=== PATIENT | male | born 1955 | race Caucasian/White ===

== ENCOUNTER 2021-11-29 16:38 | Emergency (ER) | payer OTHER, SELFPAY ==
[2021-11-29 16:53] VITALS: BP 110/50; PULSE 85; RESP 20; TEMP 36.8; O2SAT 90; BMI 30.2
--- NOTE | 2021-11-29 16:56 | ECG_ITS ---
Test Reason : ETOH Blood Pressure : / mmHG Vent. Rate : 083 BPM Atrial Rate : 083 BPM P-R Int : 146 ms QRS Dur : 102 ms QT Int : 404 ms P-R-T Axes : 076 072 067 degrees QTc Int : 474 ms Normal sinus rhythm Normal ECG No previous ECGs available Referred By: Virgil Bird Electronically Signed By:RUT LUNDY MD
--- NOTE | 2021-11-29 17:03 | ED.ALCOHOL ---
HPI - Alcohol General Chief Complaint: ETOH/Substance Use Stated Complaint: etoh Time Seen by Provider: 11/29/21 16:56 Source: patient Mode of arrival: EMS Limitations: no limitations History of Present Illness HPI narrative: Patient alcoholics been drinking all the time about pint of vodka a day for last 3 days patient did not eat and just drinking was at the bar who called EMS looking at his condition. Patient feel depressed also denies any suicidal ideation hallucinations never been to detox lives alone at home no abdominal pain no nausea no vomiting just does not feel hungry Related Data Allergies Allergy/AdvReac Type Severity Reaction Status Date / Time No Known Allergies Allergy Unverified 06/27/20 14:44 Review of Systems Review of Systems: Yes all other systems are reviewed and are negative [facility] Social History Social History Alcohol intake: current Alcohol intake frequency: a few times a week Alcohol type: hard liquor Physical Exam ED Vital Signs: Vital Signs - 24 hr 11/29/21 16:53 Temperature 98.3 F Pulse Rate 85 Respiratory Rate 20 Blood Pressure 110/50 L Pulse Oximetry 90 L BMI result Body Mass Index 30.2 Appearance: Alert. Oriented X3. No acute distress. In unkept condition Eyes: PERRLA, No Nystagmus ENT: Pharynx normal. Oral Mucosa moist Neck: Normal inspection. Neck supple. CVS: Normal heart rate and rhythm. Pulses normal. Respiratory: No respiratory distress. Equal air entry bilateral, no wheezing/rales/rhonchi Abdomen: Soft and nontender. Bowel sounds are present, no mass palpable, no CVA tenderness Skin: Skin warm and dry. Normal skin color. Normal skin turgor. Extremities: No lower extremity edema. No calf tenderness Neuro: Oriented X 3. No motor deficit. MDM - Alcohol MDM Narrative Medical decision making narrative: Patient intoxicated but alert oriented x4 walking in steady gait refused to go to detox refused any medications family is at bedside agreed to discharge the patient home Lab Data Attestation: I reviewed the patient's lab results. Result diagrams: 11/29/21 17:16 11/29/21 17:16 Labs: Lab Results 11/29/21 11/29/21 11/29/21 Range/Units 17:16 17:16 17:16 WBC 4.3 L (4.8-10.8) X10*3/uL RBC 3.56 L (4.60-5.80) X10*6/uL Hgb 13.2 L (14.0-18.0) g/dl Hct 39.1 L (42.0-52.0) % MCV 109.8 H (80.0-98.0) fL MCH 37.1 H (27.0-33.0) pg MCHC 33.8 (31.0-36.0) g/dl RDW 16.6 H (11.0-16.0) % Plt Count 176 (160-400) X10*3/uL MPV 8.5 L (9.4-12.4) fL Immature Gran % (Auto) 0.7 H (0.0-0.4) % Neut % (Auto) 51.1 (45-73) % Lymph % (Auto) 29.3 (20-40) % [place] % (Auto) 12.9 H (2-11) % Eos % (Auto) 3.9 (0-4) % Baso % (Auto) 2.1 H (0-2) % Lymph # (Auto) 1.3 (1.2-4.9) X10*3/uL [place] # (Auto) 0.6 (0.1-1.2) X10*3/uL Eos # (Auto) 0.2 (0.0-0.4) X10*3/uL Baso # (Auto) 0.1 (0.0-0.2) X10*3/uL Abs Immat Gran (auto) 0.03 (0.00-0.03) X10*3/uL Absolute Neuts (auto) 2.2 (2.0-8.3) x10*3/uL Absolute Nucleated RBC 0.000 (0.0-0.012) X10*3/uL Nucleated RBC % (auto) 0.0 (0.0-0.2) /100WBC Sodium 143 (135-145) mmol/L Potassium 4.1 (3.3-5.1) mmol/L Chloride 105 (96-108) mmol/L Carbon Dioxide 25 (22-29) mmol/L Anion Gap 17 (12-20) BUN 10 (9-16) mg/dL Creatinine 0.78 (0.5-1.4) mg/dL Estim Creat Clear Calc 101.0 Estimated GFR > 60 Random Glucose 103 (60-115) mg/dL Calcium 9.2 (8.4-10.2) mg/dL Magnesium 2.1 (1.6-2.6) mg/dL Total Bilirubin 0.3 (0.0-1.0) mg/dL AST 37 (5-37) U/L ALT 23 (0-40) U/L Alkaline Phosphatase 60 (39-117) U/L Troponin I High Sens (<3.5-35.0) ng/L Total Protein 7.4 (6.5-8.0) g/dL Albumin 4.4 (3.5-5.0) g/dL Lipase 63 (8-78) U/L Ethyl Alcohol mg/dL COVID-19 ([facility]) Negative (Negative) COVID-19 Clin Com See Note 11/29/21 11/29/21 Range/Units 17:16 17:16 WBC (4.8-10.8) X10*3/uL RBC (4.60-5.80) X10*6/uL Hgb (14.0-18.0) g/dl Hct (42.0-52.0) % MCV (80.0-98.0) fL MCH (27.0-33.0) pg MCHC (31.0-36.0) g/dl RDW (11.0-16.0) % Plt Count (160-400) X10*3/uL MPV (9.4-12.4) fL Immature Gran % (Auto) (0.0-0.4) % Neut % (Auto) (45-73) % Lymph % (Auto) (20-40) % [place] % (Auto) (2-11) % Eos % (Auto) (0-4) % Baso % (Auto) (0-2) % Lymph # (Auto) (1.2-4.9) X10*3/uL [place] # (Auto) (0.1-1.2) X10*3/uL Eos # (Auto) (0.0-0.4) X10*3/uL Baso # (Auto) (0.0-0.2) X10*3/uL Abs Immat Gran (auto) (0.00-0.03) X10*3/uL Absolute Neuts (auto) (2.0-8.3) x10*3/uL Absolute Nucleated RBC (0.0-0.012) X10*3/uL Nucleated RBC % (auto) (0.0-0.2) /100WBC Sodium (135-145) mmol/L Potassium (3.3-5.1) mmol/L Chloride (96-108) mmol/L Carbon Dioxide (22-29) mmol/L Anion Gap (12-20) BUN (9-16) mg/dL Creatinine (0.5-1.4) mg/dL Estim Creat Clear Calc Estimated GFR Random Glucose (60-115) mg/dL Calcium (8.4-10.2) mg/dL Magnesium (1.6-2.6) mg/dL Total Bilirubin (0.0-1.0) mg/dL AST (5-37) U/L ALT (0-40) U/L Alkaline Phosphatase (39-117) U/L Troponin I High Sens 5.1 (<3.5-35.0) ng/L Total Protein (6.5-8.0) g/dL Albumin (3.5-5.0) g/dL Lipase (8-78) U/L Ethyl Alcohol 354 H* mg/dL COVID-19 ([facility]) (Negative) COVID-19 Clin Com ECG Data ECG #1: Attestation: I personally reviewed and interpreted this ECG as follows: Interpretation: Normal sinus rhythm heart rate 83 beats per minute normal axis normal intervals impression normal EKG Discharge Plan Discharge Clinical Impression: Alcoholic intoxication Patient Disposition: Home, Self-Care Instructions: Abuse of Alcohol (ED) Additional Instructions: Stop drinking alcohol Follow-up of detox
[2021-11-29 17:21] LABS: MANUAL DIFF FLAG NO
[2021-11-29] MEDS: Folic Acid 1 MG TABLET PO (17:21)
[2021-11-29] MEDS: Thiamine HCL 100 MG TABLET PO (17:21)
[2021-11-29] MEDS: 0.9 % Sodium Chloride 1,000 ML 999 ML IV (17:21)
[2021-11-29 17:24] LABS: Basophils Absolute Auto 0.1 X10*3/uL (0.0-0.2); Basophils Percent Auto 2.1 % (0-2); Eosinophils Absolute Auto 0.2 X10*3/uL (0.0-0.4); Eosinophils Percent Auto 3.9 % (0-4); Hematocrit 39.1 % (42.0-52.0); Hemoglobin 13.2 g/dl (14.0-18.0); Imm Gran Abs Auto 0.03 X10*3/uL (0.00-0.03); Imm Gran Pct Auto 0.7 % (0.0-0.4); Lymphocytes Absolute Auto 1.3 X10*3/uL (1.2-4.9); Lymphocytes Percent Auto 29.3 % (20-40); Mean Corpuscular HGB Conc 33.8 g/dl (31.0-36.0); Mean Corpuscular Hemoglobin 37.1 pg (27.0-33.0); Mean Corpuscular Volume 109.8 fL (80.0-98.0); Mean Platelet Volume 8.5 fL (9.4-12.4); Monocytes Absolute Auto 0.6 X10*3/uL (0.1-1.2); Monocytes Percent Auto 12.9 % (2-11); Neutrophils Absolute Auto 2.2 x10*3/uL (2.0-8.3); Neutrophils Percent Auto 51.1 % (45-73); Platelet Count 176 X10*3/uL (160-400); Red Blood Count 3.56 X10*6/uL (4.60-5.80); Red Cell Distribution Width 16.6 % (11.0-16.0); White Blood Count 4.3 X10*3/uL (4.8-10.8)
[2021-11-29 17:37] LABS: Ethanol 354 mg/dL
[2021-11-29 17:42] LABS: Alanine Aminotransferase 23 U/L (0-40); Albumin Level 4.4 g/dL (3.5-5.0); Alkaline Phosphatase 60 U/L (39-117); Anion Gap 17 (12-20); Aspartate Amino Transferase 37 U/L (5-37); Bilirubin Total 0.3 mg/dL (0.0-1.0); Blood Urea Nitrogen 10 mg/dL (9-16); Calcium 9.2 mg/dL (8.4-10.2); Carbon Dioxide 25 mmol/L (22-29); Chloride 105 mmol/L (96-108); Estimated Glomerular Filt Rate > 60; Glucose Random 103 mg/dL (60-115); Lipase 63 U/L (8-78); Magnesium 2.1 mg/dL (1.6-2.6); Potassium 4.1 mmol/L (3.3-5.1); Sodium 143 mmol/L (135-145); Total Protein 7.4 g/dL (6.5-8.0)
[2021-11-29 17:48] LABS: Troponin-I High Sensitivity 5.1 ng/L (<3.5-35.0)
[2021-11-29 18:12] LABS: COVID-19 Test Negative (Negative); IDNOW Serial# 55D5AD1C
--- NOTE | 2021-11-29 18:22 | PC.NURSE ---
pt insisting to go home despite multiple attempts by provider and RN to try and convince pt to stop drinking and go to detox. pts brother at bedside to drive pt home.
== END 2021-11-29 18:23 | disposition home or self-care (01) ==
LOC: HO.ED 18:19
PROVIDERS: Emergency Provider Internal Medicine; PCP Obstetrics & Gynecology
DX: F10.220 Alcohol dependence with intoxication, uncomplicated (principal); Y90.8 Blood alcohol level of 240 mg/100 ml or more; Z20.822 Contact with and (suspected) exposure to COVID-19
CPT/HCPCS: 36415; 80053; 82077; 83690; 83735; 84484; 85025; 87635; 93005; 96360; 99284; 99285

== ENCOUNTER 2021-12-07 14:12 | Emergency (ER) | payer OTHER, SELFPAY ==
--- NOTE | ~2021-12-07 | CT_ITS ---
EXAMINATION: CT HEAD W/O IV CONTRAST CT CERVICAL SPINE W/O IV CONTRAST CLINICAL INFORMATION: Found on ground. Alcohol use. COMPARISON: None TECHNIQUE: Head - Contiguous axial imaging of the head was performed from the skull base to the vertex without the administration of intravenous contrast, and axial images are reconstructed at 2 mm and 5 mm slice thickness. Cervical spine - A volumetric, helical CT acquisition of the cervical spine was obtained without contrast; in addition to the standard set of axial images, multiplanar reformatted images were provided in the coronal and sagittal imaging planes. This CT examination was performed using dose optimization techniques as appropriate, variously including the following: *Automated exposure control *Adjustment of mA and/or kV according to patient size (this includes techniques or standardized protocols for targeted exams where dose is matched to indication/reason for exam; i.e. extremities or head) *Use of iterative reconstruction technique DLP: 2120 mGy-cm (total) FINDINGS: HEAD: Mild posterior scalp soft tissue swelling. The calvarium is intact. Mild motion degradation of images. A hyperdense subdural hematoma along the left falx measures up to 1.1 cm transverse thickness and 3.1 cm in craniocaudal dimension. No significant mass effect on the underlying brain parenchyma. No midline shift. No intraparenchymal or intraventricular hemorrhage. Mild cerebral volume loss. No hydrocephalus. Patchy hypoattenuation within supratentorial matter compatible with sequela of microangiopathy. The wolfe-white matter differentiation is maintained. No acute major vascular territory infarction. The brainstem and cerebellum are unremarkable. Mucus retention cyst as well as layering secretions of the partially visualized left maxillary sinus. Mucosal thickening of bilateral ethmoid air cells. The visualized orbits, globes and temporomandibular joints are unremarkable. The mastoid air cells and middle ear cavities are well aerated. There are multiple dental caries. CERVICAL SPINE: The cervical spine has normal curvature. No acute abnormalities. The craniocervical junction is normal. The occipital condyles, dens and atlantodental articulation are intact. The vertebral body heights and alignment are maintained. No fractures in the anterior or posterior elements. No prevertebral soft tissue swelling. There is degenerative osseous spurring at the atlantodental articulation. Mild discovertebral degenerative change at C3-C4. At C4-C5, there is severe degenerative loss of disc height and vertebral osteophyte formation. Mild central spinal canal stenosis caused by posterior disc osteophyte complex at C4-C5. Multilevel facet arthropathy, worst on the right at C2-C3. There is right-sided facet ankylosis at C3-C4. No evidence of hematoma in the neck. Thyroid gland is unremarkable. The visualized lung apices are clear. CT/CT cervical spine wo con IMPRESSION: * There is a left parafalcine subdural hematoma without significant mass effect upon the underlying brain parenchyma. * Mild cerebral volume loss and small vessel ischemic changes within the supratentorial white matter. * No acute abnormalities within the degenerated cervical spine. The critical test result was discussed ANDRE Argueta, at 6:23 PM on 12/07/2021 and it was ascertained that the content and the importance of the findings was understood at the time of the direct communication.
--- NOTE | ~2021-12-07 | CT_ITS ---
EXAMINATION: CT CHEST, ABDOMEN AND PELVIS WITHOUT CONTRAST CLINICAL INFORMATION: Reason for Exam fall COMPARISON: No pertinent prior studies are available for comparison. TECHNIQUE: Multidetector volumetric imaging was performed from the thoracic inlet through the pubic symphysis without IV contrast. Sagittal and coronal reformatted images were obtained on the technologist's workstation. This CT examination was performed using dose optimization techniques as appropriate, variously including the following: *Automated exposure control *Adjustment of mA and/or kV according to patient size (this includes techniques or standardized protocols for targeted exams where dose is matched to indication/reason for exam; i.e. extremities or head) *Use of iterative reconstruction technique Marked motion artifact is present. DLP: 1617 mGy-cm FINDINGS: CHEST: Lung: The lungs are clear without focal opacity or nodule. No pneumothorax Mediastinum: The mediastinum is normal. The central vascular structures are unremarkable. No hilar or mediastinal lymphadenopathy. Pericardium/Pleura: No significant effusion. No pleural mass or thickening. Chest Wall/Axilla: There is a nondisplaced fracture of the right posterior 10th rib ABDOMEN/PELVIS: Peritoneal Space: No significant free air or free fluid identified. Liver, Gallbladder, Biliary Tree: The liver is normal in size and shape but demonstrates markedly decreased attenuation consistent with hepatic steatosis.. No focal hepatic lesion or biliary ductal dilatation is present. The gallbladder is unremarkable with no evidence of radiopaque gallstones, gallbladder wall thickening, or obvious pericholecystic inflammatory changes. Pancreas: Unremarkable Spleen: Unremarkable Adrenal Glands: Unremarkable Kidneys and Ureters: The kidneys are normal in size, shape, and attenuation. No hydronephrosis, hydroureter, or calculi seen. No perinephric stranding. Bladder: Unremarkable Gastrointestinal Tract: The small and large bowel are unremarkable aside from a few scattered colonic diverticula. The appendix is unremarkable. Abdominal Wall: No significant hernia is appreciated. Lymph Nodes: No lymphadenopathy. Vascular: Aortic and iliac calcifications are seen without aneurysm. The IVC appears unremarkable. PELVIC VISCERA: Prostate is small with calcifications. Seminal vesicles normal. OSSEUS STRUCTURES: Mild degenerative changes are noted in the spine. No bony destructive lesions are seen. Degenerative changes are present in both hips, marked on the right and moderate on the left. CT/CT abdomen pelvis wo con IMPRESSION: 1. There is a posterior right 10th rib fracture present. No other evidence of acute traumatic injury. 2. Incidentally noted fatty liver and degenerative changes in the hips, right greater than left.. Fleischner guidelines were followed.
[2021-12-07 14:23] VITALS: BP 136/67; BP 172/79; PULSE 94; RESP 24; TEMP 38.4; O2SAT 97; BMI 29.3
--- NOTE | 2021-12-07 14:41 | ECG_ITS ---
Test Reason : fall Blood Pressure : / mmHG Vent. Rate : 106 BPM Atrial Rate : 106 BPM P-R Int : 130 ms QRS Dur : 096 ms QT Int : 364 ms P-R-T Axes : 074 068 036 degrees QTc Int : [address] & T wave abnormality, consider inferior ischemia Abnormal ECG When compared with ECG of 29-NOV-2021 18:08, T wave inversion now evident in Inferior leads Referred By: Ashley Vogt Electronically Signed By:William Rosales
[2021-12-07] MEDS: LORazepam 2 MG/ML VIAL IVPUSH (15:02)
[2021-12-07 15:10] LABS: MANUAL DIFF FLAG NO
[2021-12-07 15:11] LABS: Basophils Percent Auto 0.2 % (0-2); Hematocrit 39.8 % (42.0-52.0); Hemoglobin 13.2 g/dl (14.0-18.0); Imm Gran Abs Auto 0.12 X10*3/uL (0.00-0.03); Imm Gran Pct Auto 1.1 % (0.0-0.4); Lymphocytes Absolute Auto 0.4 X10*3/uL (1.2-4.9); Lymphocytes Percent Auto 3.7 % (20-40); Mean Corpuscular HGB Conc 33.2 g/dl (31.0-36.0); Mean Corpuscular Hemoglobin 37.3 pg (27.0-33.0); Mean Platelet Volume 10.1 fL (9.4-12.4); Monocytes Percent Auto 8.9 % (2-11); Neutrophils Absolute Auto 9.3 x10*3/uL (2.0-8.3); Neutrophils Percent Auto 86.1 % (45-73); Platelet Count 138 X10*3/uL (160-400); Red Blood Count 3.54 X10*6/uL (4.60-5.80); Red Cell Distribution Width 15.4 % (11.0-16.0); White Blood Count 10.8 X10*3/uL (4.8-10.8)
[2021-12-07 15:15] LABS: Mean Corpuscular Volume 112.4 fL (80.0-98.0)
[2021-12-07] MEDS: 0.9 % Sodium Chloride 1,000 ML 999 ML IV ×2 (15:15→15:30)
[2021-12-07 15:17] LABS: COVID-19 Test Positive (Negative); INTERNATIONAL NORM RATIO 1.1 (0.9-1.1); Prothrombin Time 12.9 SEC (9.9-13.0)
--- NOTE | 2021-12-07 15:20 | ED_ITS ---
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 Patient does not remember how he ended up on the ground. Reports last ETOH beverage on , chronically drinks 1 bottle, 1 pint and shots daily. Admits to generalized fatigue/weakness, chills, cough, chronic SOB, back pain/right flank pain. Denies abdominal pain, nausea/vomiting, pedal edema. Denies other illicit drugs MD complaint: fall Onset (ago): day(s) Related Data Home Medications Medication Instructions Recorded Confirmed albuterol sulfate 90 mcg/actuation 2 inh INHALATION QID PRN 12/07/21 12/07/21 aerosol inhaler amlodipine 5 mg tablet 5 mg PO DAILY 12/07/21 12/07/21 apixaban 2.5 mg tablet 2.5 mg PO BID 12/07/21 12/07/21 ketoconazole 2 % topical cream 1 appl TOPICAL TID 12/07/21 12/07/21 lisinopril 5 mg tablet 5 mg PO DAILY 12/07/21 12/07/21 mirtazapine 30 mg tablet 30 mg PO BEDTIME 12/07/21 12/07/21 tiotropium bromide 2.5 2 puff INHALATION DAILY 12/07/21 12/07/21 mcg/actuation mist for inhalation Allergies Allergy/AdvReac Type Severity Reaction Status Date / Time No Known Allergies Allergy Unverified 06/27/20 14:44 Review of Systems Review of Systems: Constitutional: No Fever, + Chills, + Fatigue, + Malaise ENT/Mouth: No Ear Pain, No Nasal Congestion, No sore throat, No Rhinorrhea Eyes: No Eye Pain, No Swelling, No Redness, No Discharge Cardiovascular: No Chest Pain, +Chronic SOB, No Dyspnea on Exertion, No Orthopnea, No Edema, No Palpitations Respiratory: + Cough, No Sputum, No Smoke Exposure, No Dyspnea Gastrointestinal: No Nausea, No Vomiting, + Diarrhea, No Constipation, No Abdominal pain Genitourinary: No Dysuria, No Urinary Frequency, No Hematuria, No Urinary Incontinence, No Urgency, + Flank Pain, No Urinary Flow Changes Musculoskeletal: + back pain, No Myalgias, No Joint Swelling Skin: No Skin Lesions, No rash Neuro: + Weakness, No Numbness, No Paresthesias, Uknown Loss of Consciousness, + Dizziness, No Headache Yes all other systems are reviewed and are negative [facility], [facility] Past Medical History Attestation statement: The following information was validated with the patient. Social History Social History Alcohol intake: current Alcohol intake frequency: 3 or more drinks per day A lcohol type: beer Advance Directives: No Advance Directives Information Provided: No Physical Exam Vital Signs: Vital Signs: Last Vital Signs Temp 100.8 F H 12/07/21 17:12 Pulse 86 12/07/21 19:13 Resp 25 H 12/07/21 19:13 BP 109/67 12/07/21 19:13 Pulse Ox 95 12/07/21 19:13 BMI result Body Mass Index 29.3 Const: Other: +tremulous General: cooperative and poor hygiene Nutritional Appearance: overweight Orientation/consciousness: patient oriented x3 Limitations: no limitations HENMT: Head: Yes normal to inspection and Yes atraumatic Ears: hearing grossly normal bilaterally General nose exam: Normal external nose present Face and sinus: Yes normal facial exam Eyes: General: appearance normal, both eyes and all related structures Pupils: Equal, round and reactive pupils present EOM: EOMs intact bilaterally Neck: Other: No midline cervical spinous tenderness Neck: Yes normal visual inspection Chest: Other: + right lateral chest wall tenderness to palpation Chest palpation & inspection: no crepitus Resp: Effort & Inspection: normal respiratory effort Auscultation: clear to auscultation bilaterally, no rales, no rhonchi and no wheezes Cardio: Rate: regular rate and tachycardic Heart sounds: S1 normal heart sound present and S2 normal heart sound present GI: Inspection: Yes normal to inspection Palpation (GI): Soft to palpation, nontender, no guarding and not rigid : Other: + ecchymosis to right flank, + tender to palpation Back/Spine/Pelvis: Other: No midline thoracic/lumbar spinous tenderness/step-off or deformity. Skin: Rashes: no rashes Wounds: no wounds Neuro: Other: Intermittently confused General: patient oriented x3, tone normal, moves all extremities, no focal motor deficits and CN's II-XI intact bilaterally Cranial nerves: Yes Equal, round and reactive pupils present Motor exam (neuro): Tremors during motor activity present Extrem: Other: Ecchymosis to right hip. Healing ecchymosis behind bilateral legs Course Course Course Narrative: -30mg/kg IVF x pts IBW for obesity (64kg) =1920cc IVF -1558--no leukocytosis. H/H at patient's baseline. Platelets mildly low. D- dimer elevated 13,574 > concern for PE with patients noncompliance of Eliquis -anion gap of 25 > likely alcoholic/starvation ketoacidosis, BUN 17. Ethanol negative. AST/ALT elevated consistent with ETOH abuse. Initial troponin 12.7 >will obtain 3 hour repeat -patient COVID-19 positive (suspected [id number] on 11/29/21). LDH/CRP elevated. -CPK 7789 > patient on 2ndL IVF >> case discussed with side laster tack Dr. Escobar--additional toxicology screening and serum osmolality ordered -patient too tremulous to lie still for CT's 3mg of IV Versed given in CT suite. Will obtain dry CT chest and CT abdomen pelvis in the meantime and obtain IV contrast CT's when patient can lie more still CT head/brain/CT cervical spine wo con IMPRESSION: *? There is a left parafalcine subdural hematoma without significant mass effect upon the underlying brain parenchyma. *? Mild cerebral volume loss and small vessel ischemic changes within the supratentorial white matter. *? No acute abnormalities within the degenerated cervical spine. 1912--CT chest wo con /CT abdomen pelvis wo con IMPRESSION: 1.? There is a posterior right 10th rib fracture present. No other evidence of acute traumatic injury. 2.? Incidentally noted fatty liver and degenerative changes in the hips, right greater than left.. Fleischner guidelines were followed. >> plan for transfer. Spoke to trauma surgeon Dr. Calhoun at [facility] who accepted trauma transfer MDM - Fall MDM Narrative Medical decision making narrative: 66-year-old male with a past medical history ETOH abuse, DVT/PE on Eliquis (no ncompliant), COVID-19 positive 8 weeks ago, COPD, HTN, presenting to the ED BIBA after unwitnessed fall on ground x2 days. Admits to generalized fatigue/weakness, chills, cough, chronic SOB, back pain/right flank pain. On exam tachypneic, tachycardic, tremulous, febrile 101 rectally, A&O x3 but int ermittently confused, lungs CTA, abdomen soft/nontender, ecchymosis noted to right flank with tenderness, no midline spinous tenderness throughout, no focal neuro deficits. Bedside fast without FF. Concern for alcohol withdrawal syndrome and alcoholic hallucinosis vs impending DT's. R/o Fractures/ intracranical and intrabdominal injury. Concern for rhabdo and other metabolic abnormalities and infectious etiology. Plan: EKG, labs, UA, head/C-spine/chest/abdomen/pelvis CT, IVF, IV Ativan, pheno tejal protocol, admission Will empirically cover with IV Zosyn Medical Records Attestation: I reviewed the patient's medical records. Lab Data Attestation: I reviewed the patient's lab results. Result diagrams: 12/07/21 15:00 12/07/21 15:00 Labs: Lab Results 12/07/21 12/07/21 12/07/21 Range/Units 15:00 15:00 15:00 WBC 10.8 (4.8-10.8) X10*3/uL RBC 3.54 L (4.60-5.80) X10*6/uL Hgb 13.2 L (14.0-18.0) g/dl Hct 39.8 L (42.0-52.0) % MCV 112.4 H (80.0-98.0) fL MCH 37.3 H (27.0-33.0) pg MCHC 33.2 (31.0-36.0) g/dl RDW 15.4 (11.0-16.0) % Plt Count 138 L (160-400) X10*3/uL MPV 10.1 (9.4-12.4) fL Immature Gran % (Auto) 1.1 H (0.0-0.4) % Neut % (Auto) 86.1 H (45-73) % Lymph % (Auto) 3.7 L (20-40) % [place] % (Auto) 8.9 (2-11) % Eos % (Auto) 0.0 (0-4) % Baso % (Auto) 0.2 (0-2) % Lymph # (Auto) 0.4 L (1.2-4.9) X10*3/uL [place] # (Auto) 1.0 (0.1-1.2) X10*3/uL Eos # (Auto) 0.0 (0.0-0.4) X10*3/uL Baso # (Auto) 0.0 (0.0-0.2) X10*3/uL Abs Immat Gran (auto) 0.12 H (0.00-0.03) X10*3/uL Absolute Neuts (auto) 9.3 H (2.0-8.3) x10*3/uL Absolute Nucleated RBC 0.000 (0.0-0.012) X10*3/uL Nucleated RBC % (auto) 0.0 (0.0-0.2) /100WBC ESR (0-15) MM/HR PT (9.9-13.0) SEC INR (0.9-1.1) APTT (24.1-38.0) SEC D-Dimer High Sensitivty NG/ML O2 Saturation % ABG pH at Pt Temp (7.35-7.45) ABG pCO2 at Pt Temp (32-45) mmHg ABG pO2 at Pt Temp (83-108) mmHg ABG HCO3 (22-26) mmol/L ABG Base Excess (Actual) mmol/L Sodium 141 (135-145) mmol/L Potassium 4.1 (3.3-5.1) mmol/L Chloride 106 (96-108) mmol/L Carbon Dioxide 14 L (22-29) mmol/L Anion Gap 25 H (12-20) BUN 17 H D (9-16) mg/dL Creatinine 1.08 (0.5-1.4) mg/dL Estim Creat Clear Calc 69.6 Estimated GFR > 60 POC Glucose (60-115) mg/dL Random Glucose 62 D (60-115) mg/dL Osmolality (281-305) mosm/kg Lactic Acid (0.5-2.0) mmol/L Calcium 9.0 (8.4-10.2) mg/dL Magnesium 2.4 (1.6-2.6) mg/dL Total Bilirubin 1.2 H (0.0-1.0) mg/dL Direct Bilirubin 0.4 (0.0-0.5) mg/dL AST 114 H (5-37) U/L ALT 41 H (0-40) U/L Alkaline Phosphatase 57 (39-117) U/L Lactate Dehydrogenase 650 H (118-273) U/L Total Creatine Kinase 7789 H (38-174) U/L Troponin I High Sens (<3.5-35.0) ng/L C-Reactive Protein 7.12 H (< or = 0.50) mg/dL Total Protein 7.9 (6.5-8.0) g/dL Albumin 4.6 (3.5-5.0) g/dL Lipase 20 (8-78) U/L Procalcitonin ng/mL Urine Color Urine Appearance Urine pH (5.0-8.0) Ur Specific [place] (1.005-1.025) Urine Protein (NEG-TRACE) MG/DL Urine Glucose (UA) (NEG) MG/DL Urine Ketones (NEG) MG/DL Urine Blood (NEG) Urine Nitrite (NEG) Ur Leukocyte Esterase (NEG) Urine RBC (0) /HPF Urine WBC (0-4) /HPF Ur Squamous Epith Cells /LPF Amorphous Sediment /LPF Urine Bacteria /LPF Salicylates < 5.0 L (15-30) mg/dL Urine Opiates Screen (Not Detect) Urine Fentanyl Screen (Not Detect) Acetaminophen < 1 (<30) mcg/mL Ur Barbiturates Screen (Not Detect) Ur Phencyclidine Scrn (Not Detect) Ur Amphetamines Screen (Not Detect) U Benzodiazepines Scrn (Not Detect) Urine Cocaine Screen (Not Detect) U Marijuana (THC) Screen (Not Detect) Ethyl Alcohol < 10 mg/dL COVID-19 (NGUYEN) (Negative) COVID-19 Clin Com 12/07/21 12/07/21 12/07/21 Range/Units 15:00 15:00 15:00 WBC (4.8-10.8) X10*3/uL RBC (4.60-5.80) X10*6/uL Hgb (14.0-18.0) g/dl Hct (42.0-52.0) % MCV (80.0-98.0) fL MCH (27.0-33.0) pg MCHC (31.0-36.0) g/dl RDW (11.0-16.0) % Plt Count (160-400) X10*3/uL MPV (9.4-12.4) fL Immature Gran % (Auto) (0.0-0.4) % Neut % (Auto) (45-73) % Lymph % (Auto) (20-40) % [place] % (Auto) (2-11) % Eos % (Auto) (0-4) % Baso % (Auto) (0-2) % Lymph # (Auto) (1.2-4.9) X10*3/uL [place] # (Auto) (0.1-1.2) X10*3/uL Eos # (Auto) (0.0-0.4) X10*3/uL Baso # (Auto) (0.0-0.2) X10*3/uL Abs Immat Gran (auto) (0.00-0.03) X10*3/uL Absolute Neuts (auto) (2.0-8.3) x10*3/uL Absolute Nucleated RBC (0.0-0.012) X10*3/uL Nucleated RBC % (auto) (0.0-0.2) /100WBC ESR (0-15) MM/HR PT 12.9 (9.9-13.0) SEC INR 1.1 (0.9-1.1) APTT 29.7 (24.1-38.0) SEC D-Dimer High Sensitivty 70137 NG/ML O2 Saturation % ABG pH at Pt Temp (7.35-7.45) ABG pCO2 at Pt Temp (32-45) mmHg ABG pO2 at Pt Temp (83-108) mmHg ABG HCO3 (22-26) mmol/L ABG Base Excess (Actual) mmol/L Sodium (135-145) mmol/L Potassium (3.3-5.1) mmol/L Chloride (96-108) mmol/L Carbon Dioxide (22-29) mmol/L Anion Gap (12-20) BUN (9-16) mg/dL Creatinine (0.5-1.4) mg/dL Estim Creat Clear Calc Estimated GFR POC Glucose (60-115) mg/dL Random Glucose (60-115) mg/dL Osmolality (281-305) mosm/kg Lactic Acid 1.1 (0.5-2.0) mmol/L Calcium (8.4-10.2) mg/dL Magnesium (1.6-2.6) mg/dL Total Bilirubin (0.0-1.0) mg/dL Direct Bilirubin (0.0-0.5) mg/dL AST (5-37) U/L ALT (0-40) U/L Alkaline Phosphatase (39-117) U/L Lactate Dehydrogenase (118-273) U/L Total Creatine Kinase (38-174) U/L Troponin I High Sens (<3.5-35.0) ng/L C-Reactive Protein (< or = 0.50) mg/dL Total Protein (6.5-8.0) g/dL Albumin (3.5-5.0) g/dL Lipase (8-78) U/L Procalcitonin ng/mL Urine Color Urine Appearance Urine pH (5.0-8.0) Ur Specific [place] (1.005-1.025) Urine Protein (NEG-TRACE) MG/DL Urine Glucose (UA) (NEG) MG/DL Urine Ketones (NEG) MG/DL Urine Blood (NEG) Urine Nitrite (NEG) Ur Leukocyte Esterase (NEG) Urine RBC (0) /HPF Urine WBC (0-4) /HPF Ur Squamous Epith Cells /LPF Amorphous Sediment /LPF Urine Bacteria /LPF Salicylates (15-30) mg/dL Urine Opiates Screen (Not Detect) Urine Fentanyl Screen (Not Detect) Acetaminophen (<30) mcg/mL Ur Barbiturates Screen (Not Detect) Ur Phencyclidine Scrn (Not Detect) Ur Amphetamines Screen (Not Detect) U Benzodiazepines Scrn (Not Detect) Urine Cocaine Screen (Not Detect) U Marijuana (THC) Screen (Not Detect) Ethyl Alcohol mg/dL COVID-19 (NGUYEN) Positive A (Negative) COVID-19 Clin Com See Note 12/07/21 12/07/21 12/07/21 Range/Units 15:00 15:00 15:00 WBC (4.8-10.8) X10*3/uL RBC (4.60-5.80) X10*6/uL Hgb (14.0-18.0) g/dl Hct (42.0-52.0) % MCV (80.0-98.0) fL MCH (27.0-33.0) pg MCHC (31.0-36.0) g/dl RDW (11.0-16.0) % Plt Count (160-400) X10*3/uL MPV (9.4-12.4) fL Immature Gran % (Auto) (0.0-0.4) % Neut % (Auto) (45-73) % Lymph % (Auto) (20-40) % [place] % (Auto) (2-11) % Eos % (Auto) (0-4) % Baso % (Auto) (0-2) % Lymph # (Auto) (1.2-4.9) X10*3/uL [place] # (Auto) (0.1-1.2) X10*3/uL Eos # (Auto) (0.0-0.4) X10*3/uL Baso # (Auto) (0.0-0.2) X10*3/uL Abs Immat Gran (auto) (0.00-0.03) X10*3/uL Absolute Neuts (auto) (2.0-8.3) x10*3/uL Absolute Nucleated RBC (0.0-0.012) X10*3/uL Nucleated RBC % (auto) (0.0-0.2) /100WBC ESR 30 H (0-15) MM/HR PT (9.9-13.0) SEC INR (0.9-1.1) APTT (24.1-38.0) SEC D-Dimer High Sensitivty NG/ML O2 Saturation % ABG pH at Pt Temp (7.35-7.45) ABG pCO2 at Pt Temp (32-45) mmHg ABG pO2 at Pt Temp (83-108) mmHg ABG HCO3 (22-26) mmol/L ABG Base Excess (Actual) mmol/L Sodium (135-145) mmol/L Potassium (3.3-5.1) mmol/L Chloride (96-108) mmol/L Carbon Dioxide (22-29) mmol/L Anion Gap (12-20) BUN (9-16) mg/dL Creatinine (0.5-1.4) mg/dL Estim Creat Clear Calc Estimated GFR POC Glucose (60-115) mg/dL Random Glucose (60-115) mg/dL Osmolality 303 (281-305) mosm/kg Lactic Acid (0.5-2.0) mmol/L Calcium (8.4-10.2) mg/dL Magnesium (1.6-2.6) mg/dL Total Bilirubin (0.0-1.0) mg/dL Direct Bilirubin (0.0-0.5) mg/dL AST (5-37) U/L ALT (0-40) U/L Alkaline Phosphatase (39-117) U/L Lactate Dehydrogenase (118-273) U/L Total Creatine Kinase (38-174) U/L Troponin I High Sens (<3.5-35.0) ng/L C-Reactive Protein (< or = 0.50) mg/dL Total Protein (6.5-8.0) g/dL Albumin (3.5-5.0) g/dL Lipase (8-78) U/L Procalcitonin 0.07 ng/mL Urine Color Urine Appearance Urine pH (5.0-8.0) Ur Specific [place] (1.005-1.025) Urine Protein (NEG-TRACE) MG/DL Urine Glucose (UA) (NEG) MG/DL Urine Ketones (NEG) MG/DL Urine Blood (NEG) Urine Nitrite (NEG) Ur Leukocyte Esterase (NEG) Urine RBC (0) /HPF Urine WBC (0-4) /HPF Ur Squamous Epith Cells /LPF Amorphous Sediment /LPF Urine Bacteria /LPF Salicylates (15-30) mg/dL Urine Opiates Screen (Not Detect) Urine Fentanyl Screen (Not Detect) Acetaminophen (<30) mcg/mL Ur Barbiturates Screen (Not Detect) Ur Phencyclidine Scrn (Not Detect) Ur Amphetamines Screen (Not Detect) U Benzodiazepines Scrn (Not Detect) Urine Cocaine Screen (Not Detect) U Marijuana (THC) Screen (Not Detect) Ethyl Alcohol mg/dL COVID-19 (NGUYEN) (Negative) COVID-19 Clin Com 12/07/21 12/07/21 12/07/21 Range/Units 15:22 16:00 16:25 WBC (4.8-10.8) X10*3/uL RBC (4.60-5.80) X10*6/uL Hgb (14.0-18.0) g/dl Hct (42.0-52.0) % MCV (80.0-98.0) fL MCH (27.0-33.0) pg MCHC (31.0-36.0) g/dl RDW (11.0-16.0) % Plt Count (160-400) X10*3/uL MPV (9.4-12.4) fL Immature Gran % (Auto) (0.0-0.4) % Neut % (Auto) (45-73) % Lymph % (Auto) (20-40) % [place] % (Auto) (2-11) % Eos % (Auto) (0-4) % Baso % (Auto) (0-2) % Lymph # (Auto) (1.2-4.9) X10*3/uL [place] # (Auto) (0.1-1.2) X10*3/uL Eos # (Auto) (0.0-0.4) X10*3/uL Baso # (Auto) (0.0-0.2) X10*3/uL Abs Immat Gran (auto) (0.00-0.03) X10*3/uL Absolute Neuts (auto) (2.0-8.3) x10*3/uL Absolute Nucleated RBC (0.0-0.012) X10*3/uL Nucleated RBC % (auto) (0.0-0.2) /100WBC ESR (0-15) MM/HR PT (9.9-13.0) SEC INR (0.9-1.1) APTT (24.1-38.0) SEC D-Dimer High Sensitivty NG/ML O2 Saturation % ABG pH at Pt Temp (7.35-7.45) ABG pCO2 at Pt Temp (32-45) mmHg ABG pO2 at Pt Temp (83-108) mmHg ABG HCO3 (22-26) mmol/L ABG Base Excess (Actual) mmol/L Sodium (135-145) mmol/L Potassium (3.3-5.1) mmol/L Chloride (96-108) mmol/L Carbon Dioxide (22-29) mmol/L Anion Gap (12-20) BUN (9-16) mg/dL Creatinine (0.5-1.4) mg/dL Estim Creat Clear Calc Estimated GFR POC Glucose 85 (60-115) mg/dL Random Glucose (60-115) mg/dL Osmolality (281-305) mosm/kg Lactic Acid (0.5-2.0) mmol/L Calcium (8.4-10.2) mg/dL Magnesium (1.6-2.6) mg/dL Total Bilirubin (0.0-1.0) mg/dL Direct Bilirubin (0.0-0.5) mg/dL AST (5-37) U/L ALT (0-40) U/L Alkaline Phosphatase (39-117) U/L Lactate Dehydrogenase (118-273) U/L Total Creatine Kinase (38-174) U/L Troponin I High Sens 12.7 D (<3.5-35.0) ng/L C-Reactive Protein (< or = 0.50) mg/dL Total Protein (6.5-8.0) g/dL Albumin (3.5-5.0) g/dL Lipase (8-78) U/L Procalcitonin ng/mL Urine Color YELLOW Urine Appearance CLEAR Urine pH 6.0 (5.0-8.0) Ur Specific [place] >= 1.030 H (1.005-1.025) Urine Protein 2+ H (NEG-TRACE) MG/DL Urine Glucose (UA) NEG (NEG) MG/DL Urine Ketones >=80 (NEG) MG/DL Urine Blood 3+ H (NEG) Urine Nitrite NEG (NEG) Ur Leukocyte Esterase NEG (NEG) Urine RBC 1-4 (0) /HPF Urine WBC 0-2 (0-4) /HPF Ur Squamous Epith Cells TRACE /LPF Amorphous Sediment TRACE /LPF Urine Bacteria NONE /LPF Salicylates (15-30) mg/dL Urine Opiates Screen (Not Detect) Urine Fentanyl Screen (Not Detect) Acetaminophen (<30) mcg/mL Ur Barbiturates Screen (Not Detect) Ur Phencyclidine Scrn (Not Detect) Ur Amphetamines Screen (Not Detect) U Benzodiazepines Scrn (Not Detect) Urine Cocaine Screen (Not Detect) U Marijuana (THC) Screen (Not Detect) Ethyl Alcohol mg/dL COVID-19 (NGUYEN) (Negative) COVID-19 Clin Com 12/07/21 12/07/21 12/07/21 Range/Units 16:25 16:55 18:56 WBC (4.8-10.8) X10*3/uL RBC (4.60-5.80) X10*6/uL Hgb (14.0-18.0) g/dl Hct (42.0-52.0) % MCV (80.0-98.0) fL MCH (27.0-33.0) pg MCHC (31.0-36.0) g/dl RDW (11.0-16.0) % Plt Count (160-400) X10*3/uL MPV (9.4-12.4) fL Immature Gran % (Auto) (0.0-0.4) % Neut % (Auto) (45-73) % Lymph % (Auto) (20-40) % [place] % (Auto) (2-11) % Eos % (Auto) (0-4) % Baso % (Auto) (0-2) % Lymph # (Auto) (1.2-4.9) X10*3/uL [place] # (Auto) (0.1-1.2) X10*3/uL Eos # (Auto) (0.0-0.4) X10*3/uL Baso # (Auto) (0.0-0.2) X10*3/uL Abs Immat Gran (auto) (0.00-0.03) X10*3/uL Absolute Neuts (auto) (2.0-8.3) x10*3/uL Absolute Nucleated RBC (0.0-0.012) X10*3/uL Nucleated RBC % (auto) (0.0-0.2) /100WBC ESR (0-15) MM/HR PT (9.9-13.0) SEC INR (0.9-1.1) APTT (24.1-38.0) SEC D-Dimer High Sensitivty NG/ML O2 Saturation 96.0 % ABG pH at Pt Temp 7.30 L (7.35-7.45) ABG pCO2 at Pt Temp 19 L* (32-45) mmHg ABG pO2 at Pt Temp 93 (83-108) mmHg ABG HCO3 10 L (22-26) mmol/L ABG Base Excess (Actual) -13.8 mmol/L Sodium (135-145) mmol/L Potassium (3.3-5.1) mmol/L Chloride (96-108) mmol/L Carbon Dioxide (22-29) mmol/L Anion Gap (12-20) BUN (9-16) mg/dL Creatinine (0.5-1.4) mg/dL Estim Creat Clear Calc Estimated GFR POC Glucose (60-115) mg/dL Random Glucose (60-115) mg/dL Osmolality (281-305) mosm/kg Lactic Acid (0.5-2.0) mmol/L Calcium (8.4-10.2) mg/dL Magnesium (1.6-2.6) mg/dL Total Bilirubin (0.0-1.0) mg/dL Direct Bilirubin (0.0-0.5) mg/dL AST (5-37) U/L ALT (0-40) U/L Alkaline Phosphatase (39-117) U/L Lactate Dehydrogenase (118-273) U/L Total Creatine Kinase (38-174) U/L Troponin I High Sens 12.2 (<3.5-35.0) ng/L C-Reactive Protein (< or = 0.50) mg/dL Total Protein (6.5-8.0) g/dL Albumin (3.5-5.0) g/dL Lipase (8-78) U/L Procalcitonin ng/mL Urine Color Urine Appearance Urine pH (5.0-8.0) Ur Specific [place] (1.005-1.025) Urine Protein (NEG-TRACE) MG/DL Urine Glucose (UA) (NEG) MG/DL Urine Ketones (NEG) MG/DL Urine Blood (NEG) Urine Nitrite (NEG) Ur Leukocyte Esterase (NEG) Urine RBC (0) /HPF Urine WBC (0-4) /HPF Ur Squamous Epith Cells /LPF Amorphous Sediment /LPF Urine Bacteria /LPF Salicylates (15-30) mg/dL Urine Opiates Screen Not Detected (Not Detect) Urine Fentanyl Screen Not Detected (Not Detect) Acetaminophen (<30) mcg/mL Ur Barbiturates Screen POSITIVE H (Not Detect) Ur Phencyclidine Scrn Not Detected (Not Detect) Ur Amphetamines Screen Not Detected (Not Detect) U Benzodiazepines Scrn Not Detected (Not Detect) Urine Cocaine Screen Not Detected (Not Detect) U Marijuana (THC) Screen Not Detected (Not Detect) Ethyl Alcohol mg/dL COVID-19 (NGUYEN) (Negative) COVID-19 Clin Com 12/07/21 12/07/21 Range/Units 18:56 19:01 WBC (4.8-10.8) X10*3/uL RBC (4.60-5.80) X10*6/uL Hgb (14.0-18.0) g/dl Hct (42.0-52.0) % MCV (80.0-98.0) fL MCH (27.0-33.0) pg MCHC (31.0-36.0) g/dl RDW (11.0-16.0) % Plt Count (160-400) X10*3/uL MPV (9.4-12.4) fL Immature Gran % (Auto) (0.0-0.4) % Neut % (Auto) (45-73) % Lymph % (Auto) (20-40) % [place] % (Auto) (2-11) % Eos % (Auto) (0-4) % Baso % (Auto) (0-2) % Lymph # (Auto) (1.2-4.9) X10*3/uL [place] # (Auto) (0.1-1.2) X10*3/uL Eos # (Auto) (0.0-0.4) X10*3/uL Baso # (Auto) (0.0-0.2) X10*3/uL Abs Immat Gran (auto) (0.00-0.03) X10*3/uL Absolute Neuts (auto) (2.0-8.3) x10*3/uL Absolute Nucleated RBC (0.0-0.012) X10*3/uL Nucleated RBC % (auto) (0.0-0.2) /100WBC ESR (0-15) MM/HR PT (9.9-13.0) SEC INR (0.9-1.1) APTT (24.1-38.0) SEC D-Dimer High Sensitivty NG/ML O2 Saturation % ABG pH at Pt Temp (7.35-7.45) ABG pCO2 at Pt Temp (32-45) mmHg ABG pO2 at Pt Temp (83-108) mmHg ABG HCO3 (22-26) mmol/L ABG Base Excess (Actual) mmol/L Sodium (135-145) mmol/L Potassium (3.3-5.1) mmol/L Chloride (96-108) mmol/L Carbon Dioxide (22-29) mmol/L Anion Gap (12-20) BUN (9-16) mg/dL Creatinine (0.5-1.4) mg/dL Estim Creat Clear Calc Estimated GFR POC Glucose 74 (60-115) mg/dL Random Glucose (60-115) mg/dL Osmolality (281-305) mosm/kg Lactic Acid 0.6 (0.5-2.0) mmol/L Calcium (8.4-10.2) mg/dL Magnesium (1.6-2.6) mg/dL Total Bilirubin (0.0-1.0) mg/dL Direct Bilirubin (0.0-0.5) mg/dL AST (5-37) U/L ALT (0-40) U/L Alkaline Phosphatase (39-117) U/L Lactate Dehydrogenase (118-273) U/L Total Creatine Kinase (38-174) U/L Troponin I High Sens (<3.5-35.0) ng/L C-Reactive Protein (< or = 0.50) mg/dL Total Protein (6.5-8.0) g/dL Albumin (3.5-5.0) g/dL Lipase (8-78) U/L Procalcitonin ng/mL Urine Color Urine Appearance Urine pH (5.0-8.0) Ur Specific [place] (1.005-1.025) Urine Protein (NEG-TRACE) MG/DL Urine Glucose (UA) (NEG) MG/DL Urine Ketones (NEG) MG/DL Urine Blood (NEG) Urine Nitrite (NEG) Ur Leukocyte Esterase (NEG) Urine RBC (0) /HPF Urine WBC (0-4) /HPF Ur Squamous Epith Cells /LPF Amorphous Sediment /LPF Urine Bacteria /LPF Salicylates (15-30) mg/dL Urine Opiates Screen (Not Detect) Urine Fentanyl Screen (Not Detect) Acetaminophen (<30) mcg/mL Ur Barbiturates Screen (Not Detect) Ur Phencyclidine Scrn (Not Detect) Ur Amphetamines Screen (Not Detect) U Benzodiazepines Scrn (Not Detect) Urine Cocaine Screen (Not Detect) U Marijuana (THC) Screen (Not Detect) Ethyl Alcohol mg/dL COVID-19 (NGUYEN) (Negative) COVID-19 Clin Com ECG Data Attestation: I personally reviewed and interpreted this ECG as follows: ECG interpretation date: 12/07/21 ECG interpretation time: 15:44 Interpretation: EKG sinus tachycardia rate of 106. QTC 483. ND interval 130. QRS 96. Nonspecific T-wave changes. No STEMI Critical Care Time Critical Care Time Critical Care Time: Yes Total Critical Care Time: 90 Attestation: I have personally provided critical care time exclusive of time spent on separately billable procedures. Time includes review of lab data, radiology results, discussion with consultants, and monitoring for potential de compensation. Intervention performed as documented. Discharge Plan Discharge Clinical Impression: Acute subdural hematoma, Alcohol withdrawal, Rhabdomyolysis, Metabolic acidosis, COVID-19, Closed rib fracture Patient Disposition: er [facility] Hospital Transfer Details: [facility] accepting physician Prescriptions: No Action amlodipine 5 mg Tablet 5 mg PO DAILY 0RF mirtazapine 30 mg Tablet 30 mg PO BEDTIME 0RF lisinopril 5 mg Tablet 5 mg PO DAILY 0RF albuterol sulfate 90 mcg/actuation Hfa Aerosol Inhaler 2 inh INHALATION QID PRN (Reason: Shortness Of Breath) 0RF ketoconazole 2 % Cream 1 appl TOPICAL TID 0RF tiotropium bromide 2.5 mcg/actuation Mist 2 puff INHALATION DAILY 0RF apixaban 2.5 mg Tablet 2.5 mg PO BID 0RF
[2021-12-07] MEDS: PHENobarbitaL sodium 130 MG/ML VIAL 255 MG IM (15:24)
[2021-12-07 15:26] LABS: Lactic Acid 1.1 mmol/L (0.5-2.0)
[2021-12-07 15:29] LABS: Ethanol < 10 mg/dL
--- NOTE | 2021-12-07 15:33 | PHA.MEDREC ---
Pharmacy Consult ? Medication Reconciliation Pharmacy has completed the medication reconciliation. Patient fills at the [facility].
[2021-12-07 15:39] LABS: Alanine Aminotransferase 41 U/L (0-40); Albumin Level 4.6 g/dL (3.5-5.0); Alkaline Phosphatase 57 U/L (39-117); Anion Gap 25 (12-20); Aspartate Amino Transferase 114 U/L (5-37); Bilirubin Direct 0.4 mg/dL (0.0-0.5); Bilirubin Total 1.2 mg/dL (0.0-1.0); Blood Urea Nitrogen 17 mg/dL (9-16); Carbon Dioxide 14 mmol/L (22-29); Chloride 106 mmol/L (96-108); Creatinine Clr Calc Pharmacy 69.6; Estimated Glomerular Filt Rate > 60; Glucose Random 62 mg/dL (60-115); Lipase 20 U/L (8-78); Magnesium 2.4 mg/dL (1.6-2.6); Potassium 4.1 mmol/L (3.3-5.1); Sodium 141 mmol/L (135-145); Total Protein 7.9 g/dL (6.5-8.0)
[2021-12-07] MEDS: Piperacillin Sodium/Tazobactam 3.375 GM in 0.9 % Sodium Chloride 50 ML IV (15:40)
[2021-12-07 15:45] VITALS: BP 142/74; PULSE 114
[2021-12-07 15:45] LABS: Troponin-I High Sensitivity 12.7 ng/L (<3.5-35.0)
[2021-12-07] MEDS: Acetaminophen 325 MG TABLET 650 MG PO (15:47)
[2021-12-07 15:49] VITALS: BP 110/79; PULSE 107; RESP 18
[2021-12-07 15:51] LABS: Partial Thromboplastin Time 29.7 SEC (24.1-38.0)
[2021-12-07 16:03] LABS: C Reactive Protein 7.12 mg/dL (< or = 0.50); D Dimer High Sensitivity 13574 NG/ML; Lactate Dehydrogenase 650 U/L (118-273)
[2021-12-07 16:06] LABS: Glucose, Whole Blood 85 mg/dL (60-115)
[2021-12-07 16:22] LABS: Erythrocyte Sedimentation Rate 30 MM/HR (0-15)
[2021-12-07 16:34] LABS: Procalcitonin 0.07 ng/mL
[2021-12-07 16:35] LABS: Appearance Urine CLEAR; Color Urine YELLOW; Glucose Urine UA NEG (NEG); Leukocyte Esterase Urine NEG (NEG); Nitrite Urine NEG (NEG); Specific Gravity - Urine >= 1.030 (1.005-1.025); UACC Culture Trigger NO; Urine Blood 3+ (NEG); Urine Ketones >=80 MG/DL (NEG); Urine Protein 2+ MG/DL (NEG-TRACE)
[2021-12-07 16:37] LABS: Osmolality, Serum 303 mosm/kg (281-305)
[2021-12-07 16:39] LABS: Acetaminophen LAB < 1 mcg/mL (<30); Salicylate < 5.0 mg/dL (15-30)
[2021-12-07 16:46] LABS: Amorphous Sediment Urine TRACE /LPF; Squamous Epithelial Cell Urine TRACE /LPF; WBC Urine 0-2 /HPF (0-4)
[2021-12-07 16:49] LABS: Amphetamine Screen Urine Not Detected (Not Detect); Barbiturates, Urine POSITIVE (Not Detect); Benzodiazepines Screen Urine Not Detected (Not Detect); Cannabinoid Screen Urine Not Detected (Not Detect); Cocaine Screen Urine Not Detected (Not Detect); Fentanyl, urine Not Detected (Not Detect); Opiate Screen Urine Not Detected (Not Detect); Phencyclidine Screen Urine Not Detected (Not Detect)
[2021-12-07 17:03] LABS: ABG Base Excess -13.8 mmol/L; ABG HCO3 10 mmol/L (22-26); ABG pCO2 19 mmHg (32-45); ABG pO2 93 mmHg (83-108)
[2021-12-07] MEDS: PHENobarbitaL sodium 130 MG/ML VIAL 192 MG IM (17:06)
[2021-12-07 17:12] VITALS: BP 130/78; PULSE 106; RESP 28; TEMP 38.2; O2SAT 95
[2021-12-07 17:29] LABS: ABG Refer to POC result
[2021-12-07] MEDS: Thiamine HCL 200 MG in 0.9 % Sodium Chloride 100 ML 204 MG IV (17:30)
[2021-12-07] MEDS: Midazolam HCl/PF 2 MG/2 ML VIAL 3 MG IVPUSH (17:40)
[2021-12-07 18:36] VITALS: BP 126/69; PULSE 88; RESP 20; O2SAT 94
[2021-12-07] MEDS: Folic Acid 1 MG in 0.9 % Sodium Chloride 50 ML 100.4 MG IV (18:43)
--- NOTE | 2021-12-07 18:51 | PC.NURSE ---
pt reports that his legs gave out causing him to fall. he states that he has been on the floor for 2 days without food/water. he has an history of etoh and reports that he has not had a drink in a few days because he does not have any money. on arrival pt alert and oriented x4, vss. pt reports mid back pain. ns on the monitor. bruises noted to mid to lower back, bilateral knees and shins. 20g iv established in right ac, fluids and meds given as documented. seizure precautions in place. this caption writer reported off to ANGEL Kirlkand.
[2021-12-07 19:05] LABS: Glucose, Whole Blood 74 mg/dL (60-115)
[2021-12-07 19:12] LABS: Lactic Acid 0.6 mmol/L (0.5-2.0)
[2021-12-07 19:13] VITALS: BP 109/67; PULSE 86; RESP 25; O2SAT 95
[2021-12-07 19:21] LABS: Troponin-I High Sensitivity 12.2 ng/L (<3.5-35.0)
--- NOTE | 2021-12-07 19:52 | PC.NURSE ---
RN assumed care at 1900. Pt alert and oriented to self and place, confused on year and why he is in hospital. pt calm and cooperative, has been sleeping since this RN arrived. Vitals stable, remains on room air. 2 IV access intact and flush without issues. Nurse to Nurse report given to ANGEL De La Rosa at [facility] [phone].
== END 2021-12-07 20:14 | disposition short-term general hospital (02) ==
PROVIDERS: Physician Assistant; Emergency Provider Internal Medicine; PCP Internal Medicine
DX: S06.5X9A Traumatic subdural hemorrhage with loss of consciousness of unspecified duration, initial encounter (principal); S22.39XA Fracture of one rib, unspecified side, initial encounter for closed fracture; F10.239 Alcohol dependence with withdrawal, unspecified; U07.1 COVID-19; R06.02 Shortness of breath; M54.50 Low back pain, unspecified; E87.2 Acidosis; W01.0XXA Fall on same level from slipping, tripping and stumbling without subsequent striking against object, initial encounter; Y93.9 Activity, unspecified; Y92.9 Unspecified place or not applicable; Y99.9 Unspecified external cause status; Z86.718 Personal history of other venous thrombosis and embolism; Z79.01 Long term (current) use of anticoagulants; Z91.14 Patient's other noncompliance with medication regimen; Z79.899 Other long term (current) drug therapy
CPT/HCPCS: 70450; 71250; 72125; 74176; 80048; 80076; 80143; 80179; 80307; 81001; 82077; 82550; 82803; 82947; 83605; 83615; 83690; 83735; 83930; 84145; 84484; 85025; 85379; 85610; 85652; 85730; 86140; 87040; 87635; 93005; 96361; 96372; 96374; 96375; 99285; 99291; 99292; J2060; J2250; J2543; J2560; J3411

== ENCOUNTER 2023-03-28 16:45 | Inpatient (IN) | payer OTHER, MEDICARE, SELFPAY ==
--- NOTE | ~2023-03-28 | XR_ITS ---
EXAMINATION: XR CHEST CLINICAL INFORMATION: Shortness of breath. COMPARISON: CT chest 12/07/2021. TECHNIQUE: 2 views of the chest were obtained. FINDINGS: Normal appearance of the cardiomediastinal silhouette. Mild central bronchial thickening. No focal infiltrate, pleural effusion or pneumothorax. Thoracic spondylosis. No acute osseous abnormalities. XR/XR chest 2V IMPRESSION: Mild central bronchial thickening which could indicate reactive airways disease or atypical/viral infections.
--- NOTE | ~2023-03-28 | CT_ITS ---
EXAMINATION: CT ABDOMEN AND PELVIS WITHOUT CONTRAST CLINICAL INFORMATION: Right lower quadrant pain COMPARISON: None available. TECHNIQUE: Multidetector volumetric imaging was performed from the superior aspect of the liver through the pubic symphysis. Sagittal and coronal reformatted images were obtained on the technologist's workstation. This CT examination was performed using dose optimization techniques as appropriate, variously including the following: *Automated exposure control *Adjustment of mA and/or kV according to patient size (this includes techniques or standardized protocols for targeted exams where dose is matched to indication/reason for exam; i.e. extremities or head) *Use of iterative reconstruction technique DLP: 466 mGy-cm FINDINGS: LUNG BASES: The visualized lung bases are unremarkable. LIVER, GALLBLADDER, AND BILIARY TREE: Changes of diffuse hepatic steatosis. No focal fat infiltration adjacent to the fissure for the ligamentum teres. No focal lesion. No biliary ductal dilatation. The gallbladder is notably distended to approximately 6.2 cm in transverse dimension. There is no definite pericholecystic fluid or inflammatory changes. No gallstones appreciated on CT. PANCREAS: Unremarkable. SPLEEN: Unremarkable. ADRENAL GLANDS: Unremarkable. KIDNEYS AND URETERS: The kidneys are normal in size, shape, and attenuation. No hydronephrosis, hydroureter, or calculi seen. No perinephric stranding. BLADDER: Unremarkable. GASTROINTESTINAL TRACT: Diverticulosis without associated inflammatory changes within the proximal sigmoid colon. Goiter the vasa recta. No evidence for any perforation or abscess formation. No obstruction. No other focal findings. ABDOMINAL WALL: Small fat-containing umbilical hernia. LYMPH NODES: Normal. VASCULAR: Unremarkable. PELVIC VISCERA: Unremarkable. OSSEOUS STRUCTURES: Unremarkable. CT/CT abdomen pelvis wo IV con IMPRESSION: 1. Acute uncomplicated diverticulitis sigmoid colon. 2. Distended gallbladder. No gallstones appreciated on CT. Consider ultrasound for further assessment. 3. Hepatic steatosis. 4. Small fat-containing umbilical hernia. 5. No specific findings to explain patient's right lower quadrant pain. Fleischner guidelines were followed.
[2023-03-28 16:50] VITALS: BP 133/70; BP 156/94; PULSE 90; PULSE 93; RESP 18; TEMP 37.1; O2SAT 89; O2SAT 95; BMI 23.4
--- NOTE | 2023-03-28 16:50 | ED_ITS ---
HPI - General Adult General Chief complaint: Wound/Laceration Stated complaint: BILATERAL SHOULDER WOUNDS Time Seen by Provider: 03/28/23 16:50 Source: patient and EMS Mode of arrival: EMS Limitations: no limitations History of Present Illness HPI narrative: Patient is a 67 year old assigned male at with a history of DVT, HTN, and asthma presenting to the emergency department today with right lower quadrant a bdominal pain and bilateral shoulder wounds. Patient states that he has felt generally unwell with right lower quadrant abdominal pain and bilateral shoulder wounds. Patient states that he takes an anti-coagulant medication for his DVT. Patient denies any dizziness, lightheadedness, nausea, vomiting, fever, chills, blurry vision, double vision, loss of vision, chest pain, difficulty breathing, shortness of breath, back pain, night sweats, pain with urination, increased urinary frequency, increased urinary urgency, blood in his urine or stool, syncope or a near syncopal episode, recent trauma or falls, bowel incontinence, bladder incontinence, bowel retention, bladder retention, or any other complaints at this time. Onset (ago): day(s) (2) Location: abdomen, left, right and upper extremity Severity: mild Severity scale (1-10): 3 Relieving factors: none Exacerbating factors: none Associated symptoms: denies other symptoms Treatments prior to arrival: none Related Data Home Medications Medication Instructions Recorded Confirmed albuterol sulfate 90 mcg/actuation 2 inh inhalation QID PRN Shortness 12/07/21 12/07/21 aerosol inhaler Of Breath amlodipine 5 mg tablet 5 mg PO DAILY 12/07/21 12/07/21 apixaban 2.5 mg tablet 2.5 mg PO BID 12/07/21 12/07/21 ketoconazole 2 % topical cream 1 appl topical TID 12/07/21 12/07/21 lisinopril 5 mg tablet 5 mg PO DAILY 12/07/21 12/07/21 mirtazapine 30 mg tablet 30 mg PO BEDTIME 12/07/21 12/07/21 tiotropium bromide 2.5 2 puff inhalation DAILY 12/07/21 12/07/21 mcg/actuation mist for inhalation Allergies Allergy/AdvReac Type Severity Reaction Status Date / Time No Known Allergies Allergy Verified 03/28/23 17:00 Review of Systems Constitutional: Constitutional: Reports no additional constitutional complaints, Denies chills, Denies fever(s) and Denies night sweats Eyes: Eyes: Reports no additional eye complaints, Denies blurry vision, Denies change in vision, Denies diplopia, Denies eye discharge, Denies loss of vision and Denies eye pain ENT: Denies dizziness Cardiovascular: Cardiovascular: Reports no additional cardiovascular complaints, Denies chest pain, Denies lightheadedness, Denies Loss of Consciousness and Denies dyspnea Respiratory: Respiratory: Reports no additional respiratory complaints and Denies dyspnea Gastrointestinal: Gastrointestinal: Reports no additional gastrointestinal complaints, Reports abdominal pain, Denies melena, Denies hematochezia, Denies change in bowel habits and Denies change in stool character Genitourinary: Genitourinary: Reports no additional male genitourinary complaints, Denies hematuria, Denies oliguria, Denies difficulty urinating, Denies dysuria, Denies urinary frequency, Denies urinary hesitancy, Denies urinary incontinence and Denies urinary urgency Musculoskeletal: Musculoskeletal: Reports no additional musculoskeletal complaints, Denies numbness and Denies tingling Comments: bilateral shoulder wounds Neurologic: Denies dizziness, Denies loss of vision, Denies numbness and Denies tingling Psychiatric: Psychiatric: Reports no additional psychiatric complaints Endocrine: Endocrine: Reports no additional endocrine complaints Hematologic/Lymphatic: Hematologic/Lymphatic: Reports no additional hematologic/lymphatic complaints Allergic/Immunologic: Allergic/Immunologic: Reports no additional allergic/immunologic complaints [facility] Past Medical History Attestation statement: The following information was validated with the patient. Source: old records reviewed and nursing notes reviewed Social History Social History Alcohol intake: current Alcohol intake frequency: 3 or more drinks per day Alcohol type: beer Advance Directives: No Advance Directives Information Provided: No Physical Exam ED Vital Signs: Vital Signs - 24 hr 03/28/23 16:50 03/28/23 18:30 Temperature 98.7 F Pulse Rate 90 104 H Respiratory Rate 18 18 Blood Pressure 133/70 105/81 Pulse Oximetry 89 L 93 Oxygen Delivery Method Room Air Room Air BMI result Body Mass Index 23.4 Const General: cooperative, no acute distress, alert and awake Nutritional Appearance: cachectic Orientation/consciousness: patient oriented x3 Limitations: no limitations HENMT Head: Yes normal to inspection and Yes atraumatic Ears: hearing grossly normal bilaterally and external ears normal General nose exam: Normal external nose present, no nasal discharge noted and no epistaxis Face and sinus: Yes normal facial exam, No abrasion and No laceration Mouth: Normal oral and palatal mucosa present, no drooling and no muffled voice Eyes General: appearance normal, both eyes and all related structures Periorbital: periorbital findings normal Eyelids: Yes eyelids normal Conjunctivae: conjunctivae normal Pupils: Equal, round and reactive pupils present EOM: EOMs intact bilaterally Neck Neck: Yes normal visual inspection, Yes full ROM and Yes no lymphadenopathy Chest Chest palpation & inspection: normal inspection of the chest Resp Effort & Inspection: normal respiratory effort and able to speak in complete sentences Auscultation: wheezes scattered wheezes Cardio Rate: regular rate Rhythm: regular rhythm GI Inspection: Yes normal to inspection Palpation (GI): Soft to palpation, not firm, nontender, no guarding and not rigid Neuro General: patient oriented x3 and moves all extremities Cranial nerves: Yes Equal, round and reactive pupils present Cognition (Neuro): normal cognition Motor exam (neuro): 5/5 motor strength present throughout Sensory Exam: Normal double simultaneous stimulation for sensation Coordination: [id number] test normal Extrem Other: General: Yes full ROM and Yes capillary refill normal Psych Appearance: grossly normal Mental Status: mental status grossly normal Affect: normal affect Attitude: cooperative Thought process: Normal thought process present Thought content: Normal thought content present Insight: Good insight present (Psych) Medications Administered Discontinued Medications Generic Name Dose Route Start Last Admin Trade Name Freq PRN Reason Stop Dose Admin Albuterol/Ipratropium 3 ml 03/28/23 18:27 03/28/23 19:11 Albuterol/Iprat 2.5/0.5mg 3 Ml Ampul.Neb INHALE 03/28/23 18:28 3 ml ONCE ONE Administration Bacitracin 1 appl 03/28/23 19:59 03/28/23 20:37 Bacitracin Oint 0.9 Gm Packet TOPICAL 03/28/23 20:00 1 appl ONCE ONE Administration Protocol Sodium Chloride 1,000 mls @ 999 mls/hr 03/28/23 18:00 03/28/23 19:10 Ns IV 03/28/23 19:00 Infused .Q1H1M KASIE Infusion Piperacillin Sod/Tazobactam 50 mls @ 100 mls/hr 03/28/23 18:01 03/28/23 18:54 Sod 3.375 gm/ Sodium Chloride IV 03/28/23 18:30 Infused ONCE ONE Infusion Medical Decision Making Medical Decision Making [facility] Narrative: Patient is a 67 year old assigned male at with a history of asthma, DVT on anticoagulation, and HTN presenting to the emergency department today with bilateral shoulder wounds and abdominal pain. Patient's physical exam was as noted in the physical exam portion of this chart. Patient's blood work showed an elevated WBC count of 11.8, ESR of 41, initial lactic of 3.0 with a repeat of 2.8, and CRP of 15.41. The rest of the patient's labs were unremarkable. Patient's chest x-ray showed evidence of reactive airway disease. Patient's abdominal CT showed evidence of diverticulitis. Patient's initial SPO2 was 88- 89%. Patient was given a breathing treatment which improved that greatly. Patient was complaining of burning of his wounds, he was given bacitracin to apply to the areas which he stated helped significantly. Patient was given IV Zosyn. Patient's clinical presentation is not consistent with sepsis (@2039). I spoke with the hospitalist who agreed to admission. I explained my physical exam findings as well as all test results to the patient. I answered all questions asked by the patient. Patient verbalized agreement and understanding with this treatment plan and admission. Differential Diagnosis Differential Diagnoses: The differential diagnosis associated with the presentation includes diverticulitis, cellulitis Admission/Observation Consideration of admission/observation: Escalation of care including admission/observation considered Patient to be admitted. Consult Healthcare Provider Management of the patient was discussed with: Hospitalist (agreed to admission as noted in the MDM portion of this chart. ) Lab Data [facility] Lab Attestation statement: I reviewed the patient's lab results. My interpretation of these labs is written in the MDM portion of this chart. 03/28/23 17:12 03/28/23 17:13 Labs: Lab Results 03/28/23 03/28/23 03/28/23 Range/Units 17:12 17:12 17:13 WBC 11.8 H (4.8-10.8) X10*3/uL RBC 4.43 L D (4.60-5.80) X10*6/uL Hgb 14.7 (14.0-18.0) g/dl Hct 44.1 (42.0-52.0) % MCV 99.5 H (80.0-98.0) fL MCH 33.2 H (27.0-33.0) pg MCHC 33.3 (31.0-36.0) g/dl RDW 15.4 (11.0-16.0) % Plt Count 147 L (160-400) X10*3/uL MPV 8.9 L (9.4-12.4) fL Immature Gran % (Auto) 0.4 (0.0-0.4) % Neut % (Auto) 84.4 H (45-73) % Lymph % (Auto) 6.9 L (20-40) % Briscoe % (Auto) 7.7 (2-11) % Eos % (Auto) 0.1 (0-4) % Baso % (Auto) 0.5 (0-2) % Lymph # (Auto) 0.8 L (1.2-4.9) X10*3/uL Briscoe # (Auto) 0.9 (0.1-1.2) X10*3/uL Eos # (Auto) 0.0 (0.0-0.4) X10*3/uL Baso # (Auto) 0.1 (0.0-0.2) X10*3/uL Abs Immat Gran (auto) 0.05 H (0.00-0.03) X10*3/uL Absolute Neuts (auto) 10.0 H (2.0-8.3) x10*3/uL Absolute Nucleated RBC 0.000 (0.0-0.012) X10*3/uL Nucleated RBC % (auto) 0.0 (0.0-0.2) /100WBC ESR 41 H (0-15) MM/HR Sodium 137 (135-145) mmol/L Potassium 3.9 (3.3-5.1) mmol/L Chloride 101 (96-108) mmol/L Carbon Dioxide 13 L (22-29) mmol/L Anion Gap 27 H (12-20) BUN 8 L (9-16) mg/dL Creatinine 0.70 (0.5-1.4) mg/dL Estim Creat Clear Calc 98.3 Estimated GFR > 60 Random Glucose 77 (60-115) mg/dL Lactic Acid (0.5-2.0) mmol/L Lactic Acid F/U @ 2Hr (0.5-2.0) mmol/L Calcium 8.7 (8.4-10.2) mg/dL Magnesium 2.1 (1.6-2.6) mg/dL Total Bilirubin 0.5 (0.0-1.0) mg/dL AST 30 (5-37) U/L ALT 21 (0-40) U/L Alkaline Phosphatase 102 (39-117) U/L Total Creatine Kinase 72 (38-174) U/L C-Reactive Protein 15.41 H (< or = 0.50) mg/dL Total Protein 7.7 (6.5-8.0) g/dL Albumin 4.2 (3.5-5.0) g/dL COVID-19 (NGUYEN) (Negative) COVID-19 Clin Com 03/28/23 03/28/23 03/28/23 Range/Units 17:13 18:43 19:27 WBC (4.8-10.8) X10*3/uL RBC (4.60-5.80) X10*6/uL Hgb (14.0-18.0) g/dl Hct (42.0-52.0) % MCV (80.0-98.0) fL MCH (27.0-33.0) pg MCHC (31.0-36.0) g/dl RDW (11.0-16.0) % Plt Count (160-400) X10*3/uL MPV (9.4-12.4) fL Immature Gran % (Auto) (0.0-0.4) % Neut % (Auto) (45-73) % Lymph % (Auto) (20-40) % Briscoe % (Auto) (2-11) % Eos % (Auto) (0-4) % Baso % (Auto) (0-2) % Lymph # (Auto) (1.2-4.9) X10*3/uL Briscoe # (Auto) (0.1-1.2) X10*3/uL Eos # (Auto) (0.0-0.4) X10*3/uL Baso # (Auto) (0.0-0.2) X10*3/uL Abs Immat Gran (auto) (0.00-0.03) X10*3/uL Absolute Neuts (auto) (2.0-8.3) x10*3/uL Absolute Nucleated RBC (0.0-0.012) X10*3/uL Nucleated RBC % (auto) (0.0-0.2) /100WBC ESR (0-15) MM/HR Sodium (135-145) mmol/L Potassium (3.3-5.1) mmol/L Chloride (96-108) mmol/L Carbon Dioxide (22-29) mmol/L Anion Gap (12-20) BUN (9-16) mg/dL Creatinine (0.5-1.4) mg/dL Estim Creat Clear Calc Estimated GFR Random Glucose (60-115) mg/dL Lactic Acid 3.0 H* (0.5-2.0) mmol/L Lactic Acid F/U @ 2Hr 2.8 H* (0.5-2.0) mmol/L Calcium (8.4-10.2) mg/dL Magnesium (1.6-2.6) mg/dL Total Bilirubin (0.0-1.0) mg/dL AST (5-37) U/L ALT (0-40) U/L Alkaline Phosphatase (39-117) U/L Total Creatine Kinase (38-174) U/L C-Reactive Protein (< or = 0.50) mg/dL Total Protein (6.5-8.0) g/dL Albumin (3.5-5.0) g/dL COVID-19 (NGUYEN) Negative (Negative) COVID-19 Clin Com See Note Independent Interpretation I performed an independent interpretation of an: Plain X-Ray and CT Scan Interpretation: My interpretation is in agreement with the radiologist's impression of these imaging studies. EXAMINATION: XR CHEST CLINICAL INFORMATION: Shortness of breath. COMPARISON: CT chest 12/07/2021. TECHNIQUE: 2 views of the chest were obtained. FINDINGS: Normal appearance of the cardiomediastinal silhouette. Mild central bronchial thickening. No focal infiltrate, pleural effusion or pneumothorax. Thoracic spondylosis. No acute osseous abnormalities. XR/XR chest 2V IMPRESSION: Mild central bronchial thickening which could indicate reactive airways disease or atypical/viral infections. Dictated By: Valerie Shah Signed By: Electronically signed by Valerie?Pablo 03/28/23 1830 EXAMINATION: CT ABDOMEN AND PELVIS WITHOUT CONTRAST? CLINICAL INFORMATION: Right lower quadrant pain? COMPARISON: None available. TECHNIQUE: Multidetector volumetric imaging was performed from the superior aspect of the liver through the pubic symphysis. Sagittal and coronal reformatted images were obtained on the technologist's workstation.? This CT examination was performed using dose optimization techniques as appropriate, variously including the following: *Automated exposure control *Adjustment of mA and/or kV according to patient size (this includes techniques or standardized protocols for targeted exams where dose is matched to indication/reason for exam; i.e. extremities or head) *Use of iterative reconstruction technique DLP: 466 mGy-cm FINDINGS: LUNG BASES: The visualized lung bases are unremarkable.? LIVER, GALLBLADDER, AND BILIARY TREE: Changes of diffuse hepatic steatosis. No focal fat infiltration adjacent to the fissure for the ligamentum teres. No focal lesion. No biliary ductal dilatation. The gallbladder is notably distended to approximately 6.2 cm in transverse dimension. There is no definite pericholecystic fluid or inflammatory changes. No gallstones appreciated on CT.? PANCREAS: Unremarkable.? SPLEEN: Unremarkable.? ADRENAL GLANDS: Unremarkable.? KIDNEYS AND URETERS: The kidneys are normal in size, shape, and attenuation. No hydronephrosis, hydroureter, or calculi seen. No perinephric stranding. ? BLADDER: Unremarkable.? GASTROINTESTINAL TRACT: Diverticulosis without associated inflammatory changes within the proximal sigmoid colon. Goiter the vasa recta. No evidence for any perforation or abscess formation. No obstruction. No other focal findings.? ABDOMINAL WALL: Small fat-containing umbilical hernia.? LYMPH NODES: Normal. VASCULAR: Unremarkable. PELVIC VISCERA: Unremarkable.? OSSEOUS STRUCTURES: Unremarkable.? CT/CT abdomen pelvis wo IV con IMPRESSION: 1.? Acute uncomplicated diverticulitis sigmoid colon. 2.? Distended gallbladder. No gallstones appreciated on CT. Consider ultrasound for further assessment. 3.? Hepatic steatosis. 4.? Small fat-containing umbilical hernia. 5.? No specific findings to explain patient's right lower quadrant pain. ? Fleischner guidelines were followed. Dictated By: Sony Linton MD Signed By: Electronically signed by Sony Linton MD 03/28/231923 Independent Historian Clinical information obtained from an independent historian. History obtained from or confirmed by: EMS (EMS provided additional history and confirmed the history provided by the patient.) Critical Care Time Critical Care Time Critical Care Time: Yes Total Critical Care Time: 30 Attestation: I spent 30 minutes of Critical Care Time with this patient. This does not include time spent on separately reported billable procedures. Discharge Plan Discharge Clinical Impression: Cellulitis, Diverticulitis Patient Disposition: Admitted As Inpatient
[2023-03-28 17:18] LABS: MANUAL DIFF FLAG NO
[2023-03-28 17:20] LABS: Basophils Absolute Auto 0.1 X10*3/uL (0.0-0.2); Basophils Percent Auto 0.5 % (0-2); Eosinophils Percent Auto 0.1 % (0-4); Hematocrit 44.1 % (42.0-52.0); Hemoglobin 14.7 g/dl (14.0-18.0); Imm Gran Abs Auto 0.05 X10*3/uL (0.00-0.03); Imm Gran Pct Auto 0.4 % (0.0-0.4); Lymphocytes Absolute Auto 0.8 X10*3/uL (1.2-4.9); Lymphocytes Percent Auto 6.9 % (20-40); Mean Corpuscular HGB Conc 33.3 g/dl (31.0-36.0); Mean Corpuscular Hemoglobin 33.2 pg (27.0-33.0); Mean Corpuscular Volume 99.5 fL (80.0-98.0); Mean Platelet Volume 8.9 fL (9.4-12.4); Monocytes Absolute Auto 0.9 X10*3/uL (0.1-1.2); Monocytes Percent Auto 7.7 % (2-11); Neutrophils Percent Auto 84.4 % (45-73); Platelet Count 147 X10*3/uL (160-400); Red Blood Count 4.43 X10*6/uL (4.60-5.80); Red Cell Distribution Width 15.4 % (11.0-16.0); White Blood Count 11.8 X10*3/uL (4.8-10.8)
--- NOTE | 2023-03-28 17:31 | PC.NURSE ---
pt requesting ointment on wounds for burning sensation provider aware med to follow
[2023-03-28 17:44] LABS: Alanine Aminotransferase 21 U/L (0-40); Albumin Level 4.2 g/dL (3.5-5.0); Alkaline Phosphatase 102 U/L (39-117); Anion Gap 27 (12-20); Aspartate Amino Transferase 30 U/L (5-37); Bilirubin Total 0.5 mg/dL (0.0-1.0); Blood Urea Nitrogen 8 mg/dL (9-16); C Reactive Protein 15.41 mg/dL (< or = 0.50); Calcium 8.7 mg/dL (8.4-10.2); Carbon Dioxide 13 mmol/L (22-29); Chloride 101 mmol/L (96-108); Creatinine Clr Calc Pharmacy 98.3; Estimated Glomerular Filt Rate > 60; Glucose Random 77 mg/dL (60-115); Magnesium 2.1 mg/dL (1.6-2.6); Potassium 3.9 mmol/L (3.3-5.1); Sodium 137 mmol/L (135-145); Total Protein 7.7 g/dL (6.5-8.0)
[2023-03-28 18:02] LABS: Erythrocyte Sedimentation Rate 41 MM/HR (0-15)
[2023-03-28] MEDS: 0.9 % Sodium Chloride 1,000 ML 999 ML IV (18:08)
[2023-03-28] MEDS: Piperacillin Sodium/Tazobactam 3.375 GM in 0.9 % Sodium Chloride 50 ML IV (18:13)
--- OUTSIDE RECORDS SUMMARY | 2023-03-28 18:25 | XMS_ITS | Continuity of Care Document ---
Author Name Unknown Organization [facility] ter Address [address] [place] [id number]- Care Team Providers Care Rail Assembler Name Role Phone Rick CADENA ([place]), Eliecer Masters Primary Care Physician Encounter [facility] Date(s): 11/08/22 - 11/10/[address] [address]- Discharge Disposition: A-D/C Home Attending Physician: Zara Ray MD Admitting Physician: Erik CADENA, Suzy Referring Physician: Not on Staff, Referring MD Allergies, Adverse Reactions, Alerts No Known Allergies Immunizations Given and Recorded Vaccine Date Status Refusal Reason influenza virus vaccine, inactivated 06/26/21 Carroll rded influenza virus vaccine, inactivated 06/27/20 Carroll rded influenza virus vaccine, inactivated 07/20/19 Carroll rded influenza virus vaccine, inactivated 10/18/17 Carroll rded tetanus/diphtheria/pertussis, acel(Tdap) 04/16/21 Recorded SARS-CoV-2 (COVID-19) mRNA-1273 vaccine 01/22/21 R ecorded SARS-CoV-2 (COVID-19) mRNA-1273 vaccine 12/25/20 R ecorded Medications albuterol 90 mcg/inh inhalation powder 2 puffs, Inhalation, Every 4 hours, PRN as needed, # 1 each, 0 Refills, Maintenance, 11/08/22 5:23:00 EST, Powder, Partial fill upon patient request if the prescription is for a schedule II opioid drug. Start Date: 11/08/22 Status: Ordered amLODIPine 5 mg oral tablet 5 mg, 1, tablet, By Mouth, Daily, # 30 tablet, Refills 0, Maintenance, 12/08/21 1:36:00 EST, Partial fill upon patient request if the prescription is for a schedule II opioid drug. Start Date: 12/08/21 Status: Ordered apixaban 5 mg oral tablet 1 tablet = 5 mg, By Mouth, 2 times a day, # 60 tablet, 0 Refills, Maintenance, 11/08/22 5:23:00 EST, Tablet, Partial fill upon patient request if the prescription is for a schedule II opioid drug. Start Date: 11/08/22 Status: Ordered folic acid 1 mg oral tablet 1 mg, 1, tablet, By Mouth, Daily, # 30 tablet, Refills 0, Tot. Refills 0, Maintenance, 11/10/22 8:00:00 EST, Route to Pharmacy Electronically, [facility], Partial fill upon patient request if the prescription is for a schedule II opioid... Start Date: 11/10/22 Status: Ordered lisinopril 5 mg oral tablet 5 mg, 1, tablet, By Mouth, Daily, # 30 tablet, Refills 0, Maintenance, 12/08/21 1:37:00 EST, Partial fill upon patient request if the prescription is for a schedule II opioid drug. Start Date: 12/08/21 Status: Ordered thiamine 100 mg oral tablet 100 mg, 1, tablet, By Mouth, Daily, for 30 days, # 30 tablet, Refills 0, Tot. Refills 0, Acute 12/10/22 8:00:00 EST, 11/10/22 8:00:00 EST, Route to Pharmacy Electronically, [facility], Partial fill upon patient request if the prescriptio... Start Date: 11/10/22 Stop Date: 12/10/22 Status: Ordered tiotropium 2.5 mcg/inh inhalation aerosol 2 puffs, Inhalation, Daily, # 4 Gm, 0 Refills, Maintenance, 12/08/21 1:38:00 EST, Aerosol, Partial fill upon patient request if the prescription is for a schedule II opioid drug. Start Date: 12/08/21 Status: Ordered Vitamin B-12 1000 mcg oral tablet 1,000 mcg, 1, tablet, By Mouth, Daily, # 14 tablet, Refills 0, Tot. Refills 0, Maintenance, 11/10/22 8:02:00 EST, Route to Pharmacy Electronically, [facility], Partial fill upon patientrequest if the prescription is for a schedule II op... Start Date: 11/10/22 Stop Date: 11/24/22 Status: Ordered Problem List Condition Confirmation Course Effective Dates Status H ealth Status Informant Carpal Tunnel Syndrome 1 Confirmed Active COPD without exacerbation Confirmed Active Hernia, inguinal NOS 2 Confirmed Active Hypertension Confirmed Active Venous thromboembolism Confirmed Active Tobacco abuse Confirmed Active 1mild 2rt Results Radiology Reports * Exam Date Time Procedure Performing Provider Status 11/07/22 11:[address] Angio Neck Hypera cute Stroke Marcel-Aditi Alonso; Auth (Verified) Notes: (CT Angio Neck Hyperacute Stroke) Reason For Exam: Aneurysm, neck vessel(s);Other: RESULT: CT Angio Neck Hyperacute Stroke CT Angio Head Hyperacute Stroke, CT Angio Neck Hyperacute Stroke Reason: Other:; Stroke; Clinical Question(s): Other:; Hematoma Aneurysm / Other: Right-sided weakness. TECHNIQUE: CT angiogram of the head and neck was performed after bolus administration of intravenous contrast. 100 mL of Omnipaque 300 was administered intravenously. Coronal and sagittal MIP reformatted images were obtained. Additional 3-D images were created on a separate workstation under concurrent supervision by the attending radiologist. All stenoses are measured using NASCET criteria. Weight-based protocol using automatic tube modulation was used to optimize exposure parameters. RADIATION DOSE PARAMETERS: CTDIvol Body: 8.67 mGy, DLP Body: 447 mGy*cm. CTDIvol Head: 45.80 mGy, DLP Head: 773 mGy*cm. COMPARISON: Noncontrast CT head performed concurrently. FINDINGS: CTA OF THE NECK: Arch: There is a three vessel aortic arch. There is mild atherosclerotic plaque of the aortic arch,but origins of the supra aortic vessels are patent. The subclavian arteries are patent. Heavy calcification of the origin of the right subclavian artery with minimal narrowing. Right carotid system: The common carotid and cervical internal carotid arteries are patent. There is calcified atherosclerotic plaque at the carotid bifurcation and proximal right ICA, but no ICA stenosis (0%) by NASCET criteria. Left carotid system: The common carotid and cervical internal carotid arteries are patent. There iscalcified atherosclerotic plaque at the carotid bifurcation, but no ICA stenosis (0%) by NASCET criteria. Right vertebral: Patent. Left vertebral: Patent. Other: Soft tissues and bones: No evidence of lymphadenopathy or mass. The thyroid is unremarkable. Visualized lung apices are clear. Partial fusion of the C4 and C5 vertebral bodies. Fusion of the C3-C4 facet joints. CTA OF THE HEAD: Anterior circulation: The intracranial internal carotid arteries are patent. Multifocal calcifications are present, and there is mild narrowing of the ophthalmic segment of the left internal carotid artery. The ICA termini are maintained. A right posterior communicating artery is present. The A1 and A2 segments of the anterior cerebral arteries are patent. The A2 is azygous. The M1 segment of the right middle cerebral artery is patent. The posterior division M2 branch is patent. The anterior division is attenuated with severe stenosis. Marked narrowing and occlusion of one of the early anterior division branches is noted. The M1 and M2 segments of the left middle cerebral artery are patent. Posterior circulation: Bilateral intracranial vertebral arteries, the basilar artery, and bilateralsuperior cerebellar and posterior cerebral artery branches are patent. Mild to moderate stenoses ofthe left P2 segment of the left posterior cerebral artery. Veins: Major dural venous sinuses are patent. Other: Soft tissues and bones: Patchy regions of diminished attenuation are present within the supratentorial white matter. A focal region of diminished density within the right frontal lobe correlates withthe region of diminished attenuation on the prior CT, which may represent chronic ischemic change. Orbits are unremarkable. Scattered paranasal sinus opacities. Multiple dental caries. IMPRESSION: 1. No acute intracranial large vessel occlusion. 2. Severe narrowing of the proximal anterior division right M2 MCA branch with attenuation and occlusion of an early branch arising from the M2 segment. The latter is of indeterminate age. MRI of thebrain can be obtained for further evaluation. 3. Mild to moderate stenoses of the P2 segment of the left posterior cerebral artery. 4. No hemodynamically-significant stenosis of the extracranial internal carotid and vertebral arteries. A preliminary report was issued to the emergency room by the [facility] service 11/08/2022 at 12:10 AM. This did not note the finding in the second impression. WSN: [id number] Ordering Physician: Candie Machado Dictated By: Humberto Lim MD Dictated Date/Time: 11/08/22 10:59 a Reviewed By: Humberto Lim MD Signed By: Humberto Lim MD Signed Date/Time: 11/08/22 10:59 am Transcribed By: DANUTA Transcribed Date/Time: 11/08/22 10:40 am * Exam Date Time Procedure Performing Provider Status 11/07/22 11:[address] Angio Head Hypera cute Stroke Marcel-Aditi Alonso (Verified) Notes: (CT Angio Head Hyperacute Stroke) Reason For Exam: Stroke;Other: RESULT: CT Angio Head Hyperacute Stroke CT Angio Head Hyperacute Stroke, CT Angio Neck Hyperacute Stroke Reason: Other:; Stroke; Clinical Question(s): Other:; Hematoma Aneurysm / Other: Right-sided weakness. TECHNIQUE: CT angiogram of the head and neck was performed after bolus administration of intravenous contrast. 100 mL of Omnipaque 300 was administered intravenously. Coronal and sagittal MIP reformatted images were obtained. Additional 3-D images were created on a separate workstation under concurrent supervision by the attending radiologist. All stenoses are measured using NASCET criteria. Weight-based protocol using automatic tube modulation was used to optimize exposure parameters. RADIATION DOSE PARAMETERS: CTDIvol Body: 8.67 mGy, DLP Body: 447 mGy*cm. CTDIvol Head: 45.80 mGy, DLP Head: 773 mGy*cm. COMPARISON: Noncontrast CT head performed concurrently. FINDINGS: CTA OF THE NECK: Arch: There is a three vessel aortic arch. There is mild atherosclerotic plaque of the aortic arch,but origins of the supra aortic vessels are patent. The subclavian arteries are patent. Heavy calcification of the origin of the right subclavian artery with minimal narrowing. Right carotid system: The common carotid and cervical internal carotid arteries are patent. There is calcified atherosclerotic plaque at the carotid bifurcation and proximal right ICA, but no ICA stenosis (0%) by NASCET criteria. Left carotid system: The common carotid and cervical internal carotid arteries are patent. There iscalcified atherosclerotic plaque at the carotid bifurcation, but no ICA stenosis (0%) by NASCET criteria. Right vertebral: Patent. Left vertebral: Patent. Other: Soft tissues and bones: No evidence of lymphadenopathy or mass. The thyroid is unremarkable. Visualized lung apices are clear. Partial fusion of the C4 and C5 vertebral bodies. Fusion of the C3-C4 facet joints. CTA OF THE HEAD: Anterior circulation: The intracranial internal carotid arteries are patent. Multifocal calcifications are present, and there is mild narrowing of the ophthalmic segment of the left internal carotid artery. The ICA termini are maintained. A right posterior communicating artery is present. The A1 and A2 segments of the anterior cerebral arteries are patent. The A2 is azygous. The M1 segment of the right middle cerebral artery is patent. The posterior division M2 branch is patent. The anterior division is attenuated with severe stenosis. Marked narrowing and occlusion of one of the early anterior division branches is noted. The M1 and M2 segments of the left middle cerebral artery are patent. Posterior circulation: Bilateral intracranial vertebral arteries, the basilar artery, and bilateralsuperior cerebellar and posterior cerebral artery branches are patent. Mild to moderate stenoses ofthe left P2 segment of the left posterior cerebral artery. Veins: Major dural venous sinuses are patent. Other: Soft tissues and bones: Patchy regions of diminished attenuation are present within the supratentorial white matter. A focal region of diminished density within the right frontal lobe correlates withthe region of diminished attenuation on the prior CT, which may represent chronic ischemic change. Orbits are unremarkable. Scattered paranasal sinus opacities. Multiple dental caries. IMPRESSION: 1. No acute intracranial large vessel occlusion. 2. Severe narrowing of the proximal anterior division right M2 MCA branch with attenuation and occlusion of an early branch arising from the M2 segment. The latter is of indeterminate age. MRI of thebrain can be obtained for further evaluation. 3. Mild to moderate stenoses of the P2 segment of the left posterior cerebral artery. 4. No hemodynamically-significant stenosis of the extracranial internal carotid and vertebral arteries. A preliminary report was issued to the emergency room by the [facility] service 11/08/2022 at 12:10 AM. This did not note the finding in the second impression. WSN: [id number] Ordering Physician: Candie Machado Dictated By: Humberto Lim MD Dictated Date/Time: 11/08/22 10:59 a Reviewed By: Humberto Lim MD Signed By: Humberto Lim MD Signed Date/Time: 11/08/22 10:59 am Transcribed By: DANUTA Transcribed Date/Time: 11/08/22 10:40 am * Exam Date Time Procedure Performing Provider Status 11/08/22 1:58 AM Chest Portable Joon Portillo; Cira (Verified) Notes: (Chest Portable) Reason For Exam: Stroke;Other: RESULT: Chest Portable Chest Portable Reason: Other:; Stroke; Clinical Question(s): CHF COMPARISON: 12/10/2021 FINDINGS: LINES AND TUBES: None. LUNGS AND PLEURA: Somewhat linear bilateral lower lung airspace opacities. Pulmonary vascularity is normal. No pleural effusion. No pneumothorax. HEART, MEDIASTINUM AND LULU: Cardiac silhouette size upper limits of normal. Normal mediastinal and hilar contour. BONES AND SOFT TISSUES: No acute abnormality. IMPRESSION: Bibasilar somewhat linear airspace opacities most likely represent atelectasis. WSN: [id number] Ordering Physician: Candie Machado Dictated By: Angelica Barton MD Dictated Date/Time: 11/08/22 8:31 am Reviewed By: Angelica Barton MD Signed By: Angelica Barton MD Signed Date/Time: 11/08/22 8:31 am Transcribed By: DANUTA Transcribed Date/Time: 11/08/22 8:28 am * Exam Date Time Procedure Performing Provider Status 11/07/22 11:[address] Head-Hyper Acute Stroke Aditi Pelayo; Auth (Verified) Notes: (CT Head-Hyper Acute Stroke) Reason For Exam: Neuro deficit, acute, stroke suspected;Other: RESULT: CT Head-Hyper Acute Stroke CT Head-Hyper Acute Stroke INDICATION: Reason: Other:; Neuro deficit, acute, stroke suspected; Clinical Question(s): Other:; Hematoma Infarction TECHNIQUE: Noncontrast head CT using axial technique and reconstructed in axial and coronal planes.Iterative reconstruction techniques are used to optimize dose and image quality. COMPARISON: 12/07/2021 FINDINGS: Clinic Supervisor view findings, lines and tubes: None. BRAIN AND EXTRA-AXIAL SPACES: No parenchymal hemorrhage, midline shift, or mass effect. Osuna-white matter differentiation is wellpreserved. No acute infarct. Ventricles, sulci, and basilar cisterns are normal. Mild low-density white matter changes. No subarachnoid hemorrhage. No subdural or epidural collection. CALVARIUM, SKULL BASE, AND SOFT TISSUES: No fractures or suspicious bony lesions. The paranasal sinuses and mastoid air cells are clear. Visualized orbits and globes are intact. The extracranial soft tissues are unremarkable. IMPRESSION: No acute intracranial pathology. WSN: [id number] Ordering Physician: Candie Machado Dictated By: Saqib Crowley MD Dictated Date/Time: 11/07/22 11:27 p Reviewed By: Saqib Crowley MD Signed By: Saqib Crowley MD Signed Date/Time: 11/07/22 11:27 pm Transcribed By: DANUTA Transcribed Date/Time: 11/07/22 11:26 pm Vital Signs Most recent to oldest [Reference Range]: 1 2 3 Height 170 cm (11/10/22 9:32 AM) 170 cm (11/10/22 7:46 AM) 170 cm (11/10/22 3:08 AM) Weight 76.9 kg (11/08/22 5:50 AM) Oxygen Saturation [94-100 %] 95 % (11/10/22 9:32 AM) 94 % (11/10/22 7:46 AM) 97 % (11/10/22 3:08 AM) Pulse Rate [55-90 bpm] 101 bpm *H* (11/10/22 9:32 AM) 104 bpm *H* (11/10/22 7:46 AM) 92 bpm *H* (11/10/22 5:35 AM) Body Mass Index [18.5-24.99 kg/m2] 26.61 kg/m2 *H* (11/08/22 5:50 AM) Blood Pressure [90-138/55-84 mm Hg] 138/69mm Hg (11/10/22 9:32 AM) 140/78mm Hg *H* (11/10/22 7:46 AM) 124/92mm Hg (11/10/22 5:35 AM) Respiratory Rate [16-30 br/min] 17 br/min (11/10/22 9:32 AM) 18 br/min (11/10/22 7:46 AM) 16 br/min (11/10/22 5:35 AM) Temperature [96.8-100.4 DegF] 98.0 DegF (11/10/22 9:32 AM) 98.2 DegF (11/10/22 7:46 AM) 96.9 DegF (11/10/22 5:35 AM) Liters per Minute 2 L/min (11/10/22 3:08 AM) 2 L/min (11/09/22 11:32 PM) 2 L/min (11/09/22 9:00 PM) Mode of Delivery (Oxygen) Room air (11/10/22 9:32 AM) Room air (11/10/22 7:46 AM) Nasal cannula (11/10/22 3:08 AM) Blood pressure sites Arm, right (11/10/22 9:32 AM) Arm, left (11/10/22 7:46 AM) Arm, left (11/10/22 3:08 AM) Temperature Route Oral (11/10/22 9:32 AM) Oral (11/10/22 7:46 AM) Oral (11/10/22 3:08 AM) Dry Weight 76.9 kg (11/08/22 5:50 AM) History and physical note * Chani CADENA, Neda Lazaro: PERFORM Event Display: History and Physical Hospital Authored Date: [id number] Patient: ??MICHELE ARREDONDO ? Age:??67 Years?Sex:??Male?:??1955?? 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 He was noted to have confusion, right-sided weakness and tremors. ?? Background history: History obtained from patient and chart review.??Was not entirely sure why he was in the hospital. Last thing he remembers was talking to his brother.??Admits to drinking 5-6 shots of vodka every day. Denies any headache, chest pain, shortness of breath, abdominal pain??and in fact had no complaints at all.??Does not know if he gets blackouts, withdrawal??seizures.??He had been??rehab?? many many years ago ??and did not think it helped. ?? ED course: Temperature 99.1, blood pressure 116/65, O2 sats ranging between 90- 95 on room air. Labsnotable for white cell count of 3.4, no left shift, hemoglobin 13.6, hematocrit 39.2, platelet count 140. INR 1. Electrolytes within normal limits other than chloride of 95. BUN and creatinine withinnormal limits. AST 69. Total CK1 124. High-sensitivity troponin 15. Serum ethanol 306. Salicylate and acetaminophen levels were low. COVID-19 PCR was negative. Hyperacute head CT was reported as no acute intracranial pathology portable chest x-ray no acute cardiopulmonary process by my read. vRad report CT angiogram of the head and neck was reported as no large vessel stenosis or occlusion. He was given 400 mg of IV thiamine, 260 mg of phenobarbital and started on normal saline. DYLAN AR was 13.??His case was discussed with neurologist who felt that this presentation was more consistent with alcohol withdrawal and not stroke. ?? At the time of my??was able to??state??his name, date of , and siblings names, home town, month.??Said that??the year was??2009.??Continues to deny any symptoms??including shortness of breath??though he had audible wheezing. Review of Systems Essentially negative??and unreliable??because of patient confusion. Objective Measurements?? Height: 170 cm (11/08/22) Weight: 76.9 kg (11/08/22) Dry Weight: 76.9 kg (11/08/22) Body Mass Index:??26.61 kg/m2??High (11/08/22) ? Vital Signs?? Temperature: 98.2 DegF (11/08/22 05:50:00) Temperature Route: Oral (11/08/22 05:50:00) Pulse Rate: 68 bpm (11/08/22 06:00:00) Respiratory Rate: 22 br/min (11/08/22 06:00:00) Systolic Blood Pressure: 128 mm Hg (11/08/22 06:00:00) Diastolic Blood Pressure:??88 mm Hg??High (11/08/22 06:00:00) Blood pressure sites: Arm, right (11/08/22 06:00:00) Mean Arterial Pressure: 90 mm Hg (11/08/22 05:50:00) Pulse Pressure: 40 mm Hg (11/08/22 06:00:00) Oxygen Saturation:??92 %??Low (11/08/22 06:00:00) Liters per Minute: 2 L/min (11/08/22 06:00:00) Mode of Delivery (Oxygen): Nasal cannula (11/08/22 06:00:00) End Tidal CO2: 36 mm Hg (11/08/22 01:50:00) Early Warning Score:??10??Critical (11/08/22 06:44:21) ? Physical Exam Constitutional: Middle-age man,??alert, tremulous. Head EENT: Extraocular muscle movement intact.??Moist mucous membranes.?? Neck: Supple. No JVD. Respiratory: Diffuse wheezing. No use of accessory muscles. Cardiovascular: S1S2 regular. No murmurs, rubs or gallops. Gastrointestinal: Abdomen soft, non-tender, protuberant. Normal bowel sounds. Extremities: Trace bilateral ankle??pitting??edema. No cyanosis or clubbing. Neurologic: AAOx2, Speech normal??but slow to respond. No facial droop.??Strength??5/5??all 4 extremities Skin: No rash. 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 He was noted to have confusion, right-sided weakness and tremors. ?? Alcohol Dependence: Confusion (R41.0):??Was brought in by ambulance??for question of stroke??as he was reportedly??noted to have right??sided weakness??and confusion.??There is no weakness on exam??after his arrival here.??Could not obtain collateral history.??Hyperacute head CT with no??acute intracranial pathology.??CT angiogram of the head and neck??([facility] report)??with no large vessel occlusion or stenosis.??Likely related to alcohol withdrawal.??Blood alcohol level was significantly elevated??at 306.??Other differential include??withdrawal seizure. -Continue neurochecks??every 4 hours,??seizure precautions -Monitor on CIWA AR protocol??with as needed benzos -He was started on IV thiamine??for??history??of Wernicke's encephalopathy -Continue multivitamin, folic acid, pyridoxine -Addiction medicine consult ?? COPD without exacerbation (J44.9):??Was unable to tell me the name of his medications.??Given wheezing??I have ordered scheduled duo nebs ?? Hypertension (I10):??Tells me that he??takes 2 different blood pressure medications but unable to tell me the names of the doses.??Based on??this discharge summary from 2 years ago, he was on amlodipine 5 mg daily as well as lisinopril 5 mg daily??both of which??will be continued ?? Venous thromboembolism (I82.90):??History of right leg DVT??back in 2019.??Ultrasound report??from back then??-??nonocclusive thrombus in the popliteal vein. Occlusive thrombus in the paired posterior tibial veins.??Unclear if this was??provoked or unprovoked??and whether he still needs to be on anticoagulation.??He tells me that he is on??apixaban??but only takes it once a day.??Continue apixaban ?? Pancytopenia (D61.818):??Likely??secondary to alcohol use. No recent blood work in our system to compare with. Given macrocytic anemia, will check B12 and folate levels. INR was within normal limits.AST ALT with minimally elevated. ?? VTE Prophylaxis:??Continue apixaban ?VTE Prophylaxis Assessment:??VTE Prophylaxis Ordered ?? Code Status:??Full code ?Order Code Status:??Code Status Ordered ?? Histories Allergies Allergies ?(Active and Proposed Allergies Only) No Known Medication Allergies? (Severity: Unknown severity, Onset: Unknown) NKA? (Severity: Unknown severity, Onset: Unknown) ? Past Medical History/Problem List Active Problems??(7) Carpal Tunnel Syndrome COPD without exacerbation Diverticulosis Hernia, inguinal NOS Hypertension Tobacco abuse Venous thromboembolism ? Past Surgical History Colonoscopy, flexible, proximal to splenic flexure; diagnostic, with or without collection of specimen(s) by brushing or washing, with or without colon decompression (separate procedure): 05/23/12 Electrocardiogram, routine ECG with at least 12 leads; with interpretation and report: 02/26/12 tonsillectomy torsion testicle ? Social History He is single. Lives alone. Has a??home health aide who comes in once a week to help clean.??He is retired from the [employer].??Smokes??cigarettes??half pack a day.??Drinks 5-6 shots of vodka every day. Started drinking at the age of 20. ? Family History Mother (): ASHD - Atherosclerotic heart disease; CAD - Coronary artery disease Father: Hypertension Brother: Diabetes mellitus type II; Hyperlipidemia Sister: Diabetes mellitus type II Pat. Grandfather: Alcoholism ? Medications Home Medications - needs to be verified Albuterol (albuterol 90 mcg/inh inhalation powder)?2?puff(s)?Inhalation?Every 4 hours?as needed?as needed Amlodipine (amLODIPine 5 mg oral tablet)?5?Milligram?1?tablet?By Mouth?Daily apixaban (apixaban 5 mg oral tablet)?1?tab(s)?5?Milligram?By Mouth?2 times a day Lisinopril (lisinopril 5 mg oral tablet)?5?Milligram?1?tablet?By Mouth?Daily Tiotropium (tiotropium 2.5 mcg/inh inhalation aerosol)?2?puff(s)?Inhalation?Daily ? Results ?? Test Name Test Result Date/TimeWBC 3.4 k/mm3 (Low) 11/08/2022 00:00 EST Hgb 13.6 Gm/dL (Low) 11/08/2022 00:00 EST Hct 39.2 % (Low) 11/08/2022 00:00 EST MCV 103.7 femtoliters (High) 11/08/2022 00:00 EST Platelet Count 140 k/mm3 (Low) 11/08/2022 00:00 EST INR 1.0 11/08/2022 00:00 EST Sodium 137 mmol/L 11/08/2022 00:00 EST Potassium 4.3 mmol/L 11/08/2022 00:00 EST Chloride 95 mmol/L (Low) 11/08/2022 00:00 EST Bicarbonate Level 26 mmol/L 11/08/2022 00:00 EST Glucose Level 85 mg/dL 11/08/2022 00:00 EST BUN 8 mg/dL 11/08/2022 00:00 EST Creatinine-Blood 0.7 mg/dL 11/08/2022 00:00 EST Calcium 9.2 mg/dL 11/08/2022 00:00 EST Magnesium 1.8 mg/dL 11/08/2022 00:00 EST AST (SGOT) 69 units/L (High) 11/08/2022 00:00 EST CK, Total 124 units/L 11/08/2022 00:00 EST High Sensitivity Troponin (HSTnT) 15 ng/L 11/07/2022 23:53 EST Ethanol, Serum or Plasma 306 mg/dL (Abnormal) 11/08/2022 00:00 EST Salicylate Level <0.3 mg/dL (Low) 11/08/2022 00:00 EST Acetaminophen Level <5 mg/L (Low) 11/08/2022 00:00 EST COVID-19 by RT-PCR NEGATIVE 11/08/2022 02:50 EST Imaging(s) ?Chest Portable ?? 11/08/2022 01:58 ?No acute cardiopulmonary process. ?CT Head-Hyper Acute Stroke ?? 11/07/2022 23:25??by Saqib Crowley MD ?No acute intracranial pathology. ?CT Angio Head Hyperacute Stroke ?? 11/07/2022 23:32 ?[facility] report CT angiogram of the head and neck was reported as no large vessel stenosis or occlusion. ? EKG study * Event Display: EKG Authored Date: Note * Angelita Sultana RN: PERFORM Event Display: Discharge/Transfer Note Hospital Authored Date: [id number] Nursing Discharge Note Entered On: 11/10/2022 10:02 EST Performed On: 11/10/2022 10:02 EST by Angelita Sultana RN Nursing Discharge Note 2 Discharge Time : 11/10/2022 11:00 EST Angelita Sultana RN - 11/10/2022 11:16 EST Discharge Level of Care at Discharge : Home/Retirement/Foster Care Patient Left Unit Via : Wheelchair Patient Accompanied Off Unit with : Responsible adult DC Instructions Provided & Signed by Pt : Yes Patient Understands D/C Instructions : Yes Patient Instructions Discharge Signed : Yes Did Pt have Specialty Bed or Wound Vac : No Angelita Sultana RN - 11/10/2022 10:02 EST * Zara Ray MD: PERFORM Event Display: Discharge/Transfer Note Hospital Authored Date: [id number] Patient: ??MICHELE ARREDONDO ? Age:??67 Years?Sex:??Male?:??1955?? Patient Information Discharge Location: Primary Care Physician: Rick CADENA ([place]) , Eliecer Masters Admit Date/Time: 11/08/22 02:07 Discharge Disposition Discharge Disposition: ?? Discharge Diagnosis COPD without exacerbation (J44.9) Hypertension (I10) Venous thromboembolism (I82.90) Alcohol dependence Confusion (R41.0) Pancytopenia (D61.818) ?? _ Discharge Medications Albuterol (albuterol 90 mcg/inh inhalation powder)?2?puff(s)?Inhalation?Every 4 hours?as needed?as needed Amlodipine (amLODIPine 5 mg oral tablet)?5?Milligram?1?tablet?By Mouth?Daily apixaban (apixaban 5 mg oral tablet)?1?tab(s)?5?Milligram?By Mouth?2 times a day Cyanocobalamin (Vitamin B-12 1000 mcg oral tablet)?1,000?Microgram?1?tablet?By Mouth?Daily?for 14?Days Folic Acid (folic acid 1 mg oral tablet)?1?Milligram?1?tablet?By Mouth?Daily Lisinopril (lisinopril 5 mg oral tablet)?5?Milligram?1?tablet?By Mouth?Daily Thiamine (thiamine 100 mg oral tablet)?100?Milligram?1?tablet?By Mouth?Daily?for 30?Days Tiotropium (tiotropium 2.5 mcg/inh inhalation aerosol)?2?puff(s)?Inhalation?Daily ? 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 Patient reported he has not had a drink for more than??60 days. ?? Alcohol??use??and dependence, patient reports he had not??drinking more than 60 days Question of??encephalopathy however I do not see any evidence of confusion or encephalopathy Hypertension COPD not oxygen dependent . CT angiogram of the head and neck ([facility] report) with no large vessel occlusion or stenosis. Admitting MD reviewed case with Neurology who thinks his presentation is more c/w alcohol withdrawal rather than stroke. No evidence of acute alcohol withdrawals Patient is alert and oriented he has chronic upper extremity??tremors He received Ativan??during his stay currently??medically stable and will be discharged home He has not had a drink for more than 60 days so will not need any detox program ?? COPD without exacerbation (J44.9): ??- Breo, Spiriva, albuterol PRN ? Hypertension (I10): ??- Amlodipine 5 mg daily ??- Lisinopril 5 mg daily ? 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 Pancytopenia (D61.818): ??Likely secondary to alcohol use. No recent blood work in our system to compare with. ? Vit B12 deficiency: Started Vit B 12 1000 mcg po qd ? Chronic diarrhea: Continue Imodium as needed [id number] ?? Disposition Home patient ambulated independently with a walker??in the hallways he will be going home ? Discharge Planning:? Vital Signs?? Temperature: 98.2 DegF (11/10/22 07:46:00) Temperature Route: Oral (11/10/22 07:46:00) Pulse Rate:??104 bpm??High (11/10/22 07:46:00) Heart Rate Monitored: 80 bpm (11/09/22 11:00:00) Respiratory Rate: 18 br/min (11/10/22 07:46:00) Systolic Blood Pressure:??140 mm Hg??High (11/10/22 07:46:00) Diastolic Blood Pressure: 78 mm Hg (11/10/22 07:46:00) Blood pressure sites: Arm, left (11/10/22 07:46:00) Mean Arterial Pressure: 99 mm Hg (11/10/22 07:46:00) Pulse Pressure: 62 mm Hg (11/10/22 07:46:00) Oxygen Saturation: 94 % (11/10/22 07:46:00) Liters per Minute: 2 L/min (11/10/22 03:08:00) Mode of Delivery (Oxygen): Room air (11/10/22 07:46:00) Early Warning Score: 7 (11/10/22 08:04:25) ? . Physical Exam General: [Alert, in no acute cardiopulmonary distress.] Mental Status: [Oriented to person, place and time. Normal affect.] Head: [Normocephalic.] Eyes: [Pupils are equal, round and reactive to light. Extraocular muscles intact.] Ear, Nose and Throat: [Oropharynx clear, mucous membranes moist. Respiratory: [Clear to auscultation and percussion. No wheezing, rales or rhonchi.] Cardiovascular: [Heart sounds normal. No thrills. Regular rate and rhythm, no murmurs, rubs or gallops.] Gastrointestinal: [Abdomen soft, non-tender, non-distended. Normal bowel sounds. No pulsatile mass.No hepatosplenomegaly.] Genitourinary: [No costovertebral angle tenderness.] Neurologic: [Cranial nerves II-XII grossly intact. No focal neurological deficits. Deep tendon reflexes +2 bilaterally. Skin: [No rashes or lesions. No petechiae or purpura. No edema.] Musculoskeletal: [No cyanosis or clubbing. No gross deformities. Normal range of motion.] Psychiatric patient is not??anxious he has some??upper extremity tremors which are chronic Pending Results Add On Lab Order ordered on 11/08/2022 Add On Lab Order ordered on 11/08/2022 Amphetamine Urine Screen ordered on 11/07/2022 Barbiturate Urine Screen ordered on 11/07/2022 Benzodiazepine Urine Screen ordered on 11/07/2022 Cannabinoid Urine Screen ordered on 11/07/2022 Cocaine Urine Screen ordered on 11/07/2022 Fentanyl Screen, Urine ordered on 11/07/2022 GI Profile, Stool, PCR ordered on 11/09/2022 Opiate Screen Urine ordered on 11/07/2022 Urinalysis w/hold for Urine Culture ordered on 11/07/2022 Follow-Up Appointments Added Follow Up ?Time Frame ?Comments Rick CADENA (MT) , Eliecer Masters?1 to 2 weeks Post Discharge Care Discharge ?11/10/22 8:01:00 EST Home Health Face to Face ^HomeHealthFTF Results Discharge Labs BLOOD BANK Blood Type O Positive ()?? 11/07/2022 23:13 Antibody Screen Negative ()?? 11/07/2022 23:13 ?? BLOOD COUNT & DIFF WBC 6.1 k/mm3 ()?? 11/10/2022 01:10 RBC 3.72 m/mm3 (Low)?? 11/10/2022 01:10 Hgb 13.4 Gm/dL (Low)?? 11/10/2022 01:10 Hct 38.8 % (Low)?? 11/10/2022 01:10 MCV 104.3 femtoliters (High)?? 11/10/2022 01:10 MCH 36.0 pg (High)?? 11/10/2022 01:10 MCHC 34.5 g/dL ()?? 11/10/2022 01:10 Platelet Count 103 k/mm3 (Low)?? 11/10/2022 01:10 RDW-SD 57.1 femtoliters (High)?? 11/10/2022 01:10 MPV 9.8 femtoliters ()?? 11/10/2022 01:10 Nucleated RBC (Automated) 0.0 #/100 WBC'S ()?? 11/10/2022 01:10 Abs. NRBC 0.0 k/mm3 ()?? 11/10/2022 01:10 Abs. Neut 4.1 k/mm3 ()?? 11/10/2022 01:10 Abs. Lymph 1.0 k/mm3 ()?? 11/10/2022 01:10 Abs. Coryell 0.7 k/mm3 ()?? 11/10/2022 01:10 Abs. Eo 0.2 k/mm3 ()?? 11/10/2022 01:10 Abs. Baso 0.0 k/mm3 ()?? 11/10/2022 01:10 Neut % 66.2 % ()?? 11/10/2022 01:10 Lymph % 16.8 % ()?? 11/10/2022 01:10 Coryell % 11.7 % (High)?? 11/10/2022 01:10 Eos % 3.9 % ()?? 11/10/2022 01:10 Baso % 0.7 % ()?? 11/10/2022 01:10 Imm Gran 0.7 % ()?? 11/10/2022 01:10 Abs. Imm Gran 0.0 k/mm3 ()?? 11/10/2022 01:10 ?? CARDIAC CK, Total 124 units/L ()?? 11/08/2022 00:00 High Sensitivity Troponin (HSTnT) 15 ng/L ()?? 11/07/2022 23:53 ?? CHEM GENERAL Sodium 133 mmol/L ()?? 11/10/2022 01:10 Potassium 3.6 mmol/L ()?? 11/10/2022 01:10 Chloride 95 mmol/L (Low)?? 11/10/2022 01:10 Bicarbonate Level 24 mmol/L ()?? 11/10/2022 01:10 Anion Gap 14 ()?? 11/10/2022 01:10 Glucose Level 94 mg/dL ()?? 11/10/2022 01:10 Glucose, POC 77 mg/dL ()?? 11/10/2022 04:04 BUN 4 mg/dL (Low)?? 11/10/2022 01:10 Creatinine-Blood 0.7 mg/dL ()?? 11/10/2022 01:10 Estimated GFR Creatinine 103 ML/MIN/1.73 M2 ()?? 11/10/2022 01:10 Calcium 8.6 mg/dL ()?? 11/10/2022 01:10 Phosphorus 3.6 mg/dL ()?? 11/08/2022 00:00 Magnesium 1.8 mg/dL ()?? 11/08/2022 00:00 Protein, Total 5.9 Gm/dL (Low)?? 11/09/2022 01:44 Albumin 4.1 Gm/dL ()?? 11/09/2022 01:44 AG Ratio 2.3 ()?? 11/09/2022 01:44 Alkaline Phosphatase 63 units/L ()?? 11/09/2022 01:44 AST (SGOT) 42 units/L (High)?? 11/09/2022 01:44 ALT (SGPT) 32 units/L ()?? 11/09/2022 01:44 Bilirubin, Total 0.6 mg/dL ()?? 11/09/2022 01:44 Vitamin B12 Level 264 pg/mL ()?? 11/08/2022 00:00 Folic Acid Level HEMOLYZED ng/mL ()?? 11/08/2022 00:00 ?? COAG INR 1.0 ()?? 11/08/2022 00:00 Protime (PT) 10.3 seconds ()?? 11/08/2022 00:00 APTT 24.8 seconds ()?? 11/08/2022 00:00 ? SEROLOGY INF DISEASE C.difficile Toxin INDETERMINATE. PLEASE REFER TO SUPPLEMENTAL C.DIFFICILE PCR TEST (Abnormal)?? 11/09/2022 08:32 C. Difficile Toxin by PCR NEGATIVE ()?? 11/09/2022 08:32 ?? TOXICOLOGY/TDM Ethanol, Serum or Plasma 306 mg/dL (Abnormal)?? 11/08/2022 00:00 Salicylate Level <0.3 mg/dL (Low)?? 11/08/2022 00:00 Acetaminophen Level <5 mg/L (Low)?? 11/08/2022 00:00 Phenobarb Level 17.9 mg/L ()?? 11/10/2022 01:10 ?? VIROLOGY COVID-19 by RT-PCR NEGATIVE ()?? 11/09/2022 04:00 ? Microbiology ?? COVID-19 (Novel Coronavirus), Rapid PCR?? Completed?? Source: Nasal Body Site: Nose Collected Dt/Tm: 11/07/2022 23:13 Last Updated Dt/Tm: 11/08/2022 03:57 C. difficile Rapid Toxin Assay?? Completed?? Source: Stool Body Site: ?? Collected Dt/Tm: 11/09/2022 08:32 Last Updated Dt/Tm: 11/09/2022 22:48 C. difficile Toxin by PCR?? Completed?? Source: Stool Body Site: ?? Collected Dt/Tm: 11/09/2022 08:32 Last Updated Dt/Tm: 11/09/2022 23:45 ? 30 minutes spent on discharge * Event Display: Discharge/Transfer Note Hospital Authored Date: * Angelita Sultana RN: PERFORM Event Display: Patient Education/Instruction Authored Date: [id number] Inpatient Adult Discharge Instructions [address] [address] Name: MICHELE ARREDONDO : 1955 Visit: 11/08/2022 02:07:00 Current Date: 11/10/2022 10:55 Account: [id number] Inpatient Adult Discharge Instructions We would like to thank you for allowing us to assist you with your healthcare needs. The following includes patient education materials and information regarding your injury/illness. Our entire staffstrives to provide an excellent experience for our patients and their families. PLEASE ENSURE YOU FOLLOW-UP PER THE INSTRUCTIONS BELOW! ?? YOUR OPINION IS IMPORTANT TO US! Please complete the survey you may receive by mail or email. Your feedback will be used to make improvements to the healthcare experiences of our patients and their families. Surveys are administered by [employer] ?? If further treatment with your primary care physician or another doctor is recommended, it is important for you to keep the appointment. Call your primary care physician or return to the Emergency Department immediately if your condition worsens, fails to improve, or new symptoms develop. If you need to find a doctor, you can call [facility] for a referral at [phone] or toll free at [phone] or log in to [email or web address].. ?? You can view and manage your care through the patient portal or by using a health care marietta of your choosing. [employer] is a website that allows you to securely view your medical information including your hospital discharge summary, office visit summaries, medications and follow-up visits. You can also request appointments, renew medications, and request access to your medical information using a health care marietta of your choosing, or just ask a question. You can enroll at [email or web address] or register during your next office visit. You have been discharged from [facility], Patient Care Unit: S3. If you have any questions regarding these instructions after you leave, please call us and we will be happy to assist you. [facility] Your Care Team Attending Physician Cory CADENA, Zara Consulting Providers Cory CADENA, Zara; Jaren Watts MD Discharging Providers Cory CADENA, Zara Reason for Admission confusion Your Diagnosis COPD without exacerbation Hypertension Venous thromboembolism Confusion Pancytopenia Alcohol dependence with uncomplicated withdrawal Tests Performed Below is a partial list of the tests performed during your hospitalization. You may have had other tests and procedures not included in this list. Please discuss all test results with your provider. Acetaminophen Level ALT AST Basic Metabolic Panel BILIRUBIN,TOTAL C. difficile Rapid Toxin Assay C. DIFFICILE TOXIN PCR CBC w/ Differential Comprehensive Metabolic Panel COVID-19 (NOVEL CORONAVIRUS), PCR CPK Total Only Ethanol Level FOLIC ACID GLUCOSE POC High??Sensitivity??Troponin T Magnesium Level Phenobarbital Level PHOSPHORUS PT (INR) PTT Salicylate Level Type and Screen VITAMIN B12 CT Angio Head Hyperacute Stroke CT Angio Neck Hyperacute Stroke CT Head-Hyper Acute Stroke XR Chest Portable Primary Care Provider Rick CADENA ([place]) , Eliecer Masters Advance Directive Health Care Proxy on File Yes - Health Care Proxy Discharge Vitals Temperature: 98 DegF Height: 170 cm Pulse Rate:??101 bpm??High Weight: 76.9 kg Respiratory Rate: 17 br/min Body Mass Index:??26.61 kg/m2??High Systolic Blood Pressure: 138 mm Hg Body surface area: 1.91 Diastolic Blood Pressure: 69 mm Hg ?? Oxygen Saturation: 95 % ?? Studies Pending All tests and labs ordered during this hospital stay have been completed unless listed below. Please discuss all pending results with your provider listed above in these instructions. ?? Add On Lab Order Amphetamine Urine Screen Barbiturate Urine Screen Benzodiazepine Urine Screen Cannabinoid Urine Screen Cocaine Urine Screen Fentanyl Screen, Urine GI Profile, Stool, PCR Opiate Screen Urine Urinalysis w/hold for Urine Culture What to do next Instructions From Your Doctor Discharge Orders You Need to Schedule the Following Appointments Follow Up with??Rick CADENA (MT) , Eliecer Masters When??Within 1 to 2 weeks Where: Discharge Medications MICHELE ARREDONDO :1955 Visit Date:11/08/2022 Medications: Please continue your medications until treatment is completed or stopped by your provider. Medications not listed below should be discontinued. Discuss any questions related to medications with your provider. What How Much When Instructions Next Dose New Cyanocobalamin (Vitamin B-12 1000 mcg oral tablet) 1 tab(s) Oral Daily Duration: 14 Days Pickup at [place] [address] 2 AM New Folic Acid (folic acid 1 mg oral tablet) 1 tab(s) Oral Daily Pickup at [place] [address] 2 AM New Thiamine (thiamine 100 mg oral tablet) 1 tab(s) Oral Daily Duration: 30 Days Pickup at [place] [address] 11/11 AM Changed Albuterol (albuterol 90 mcg/ inh inhalation powder) 2 puff(s) Inhalation Every 4 hours as needed for as needed as needed Unchanged Amlodipine (amLODIPine 5 mg oral tablet) 1 tab(s) Oral Daily 11/11 AM Unchanged apixaban (apixaban 5 mg oral tablet) 1 tab(s) Oral Twice a day 11/10 PM Unchanged Lisinopril (lisinopril 5 mg oral tablet) 1 tab(s) Oral Daily 11/11 AM Unchanged Tiotropium (tiotropium 2.5 mcg/ inh inhalation aerosol) 2 puff(s) Inhalation Daily 11/11 AM Pharmacy Information [facility] 3: [address], [place] [id number] [phone] ?? What How Much When Comments Stop Taking Mirtazapine (mirtazapine 30 mg oral tablet) 1 tab(s) Oral Daily at Bedtime Test Results Below is a partial list of the most recent Laboratory test results done prior to this discharge. You may have had other tests and procedures not included in this list. Please discuss all test resultswith your provider. Acetaminophen Level (11/08/2022) ? ?Acetaminophen Level - <5 mg/L ALT (11/08/2022) ???ALT (SGPT) - 46 units/L AST (11/08/2022) ???AST (SGOT) - 69 units/L Basic Metabolic Panel (11/10/2022) ???Sodium - 133 mmol/L???Potassium - 3.6 mmol/L???Chloride - 95 mmol/L???Bicarbonate Level - 24 mmol/L???Anion Gap - 14???Glucose Level - 94 mg/dL???BUN - 4 mg/dL???Creatinine-Blood - 0.7 mg/dL???Estimated GFR Creatinine - 103 ML/MIN/1.73 M2???Calcium - 8.6 mg/dL BILIRUBIN,TOTAL (11/08/2022) ???Bilirubin, Total - 0.3 mg/dL C. difficile Rapid Toxin Assay (11/09/2022) ???C.difficile Toxin - INDETERMINATE. PLEASE REFER TO SUPPLEMENTAL C.DIFFICILE PCR TEST C. DIFFICILE TOXIN PCR (11/09/2022) ???C. Difficile Toxin by PCR - NEGATIVE CBC w/ Differential (11/10/2022) ???WBC - 6.1 k/mm3???RBC - 3.72 m/mm3???Hgb - 13.4 Gm/dL???Hct - 38.8 %???MCV - 104.3 femtoliters???MCH - 36.0 pg???MCHC - 34.5 g/dL???Platelet Count - 103 k/mm3???RDW-SD - 57.1 femtoliters???MPV - 9.8 femtoliters???Nucleated RBC (Automated) - 0.0 #/100 WBC'S???Abs. NRBC - 0.0 k/mm3???Abs. Neut - 4.1 k/mm3???Abs. Lymph - 1.0 k/mm3???Abs. Coryell - 0.7 k/mm3???Abs. Eo - 0.2 k/mm3???Abs. Baso - 0.0 k/mm3???Neut % - 66.2 %???Lymph % - 16.8 %???Coryell % - 11.7 %???Eos % - 3.9 %???Baso % - 0.7 %???Imm Gran - 0.7 %???Abs. Imm Gran - 0.0 k/mm3 Comprehensive Metabolic Panel (11/09/2022) ???Sodium - 137 mmol/L???Potassium - 3.5 mmol/L???Chloride - 96 mmol/L???Bicarbonate Level - 24 mmol/L???Anion Gap - 17???Glucose Level - 104 mg/dL???BUN - 4 mg/dL???Creatinine-Blood - 0.7 mg/dL???Estimated GFR Creatinine - 104 ML/MIN/1.73 M2???Calcium - 8.3 mg/dL???Protein, Total - 5.9 Gm/dL???Albu min - 4.1 Gm/dL???AG Ratio - 2.3???Alkaline Phosphatase - 63 units/L???AST (SGOT) - 42 units/L???ALT (SGPT) - 32 units/L???Bilirubin, Total - 0.6 mg/dL COVID-19 (NOVEL CORONAVIRUS), PCR (11/09/2022) ???COVID-19 by RT-PCR - NEGATIVE CPK Total Only (11/08/2022) ???CK, Total - 124 units/L Ethanol Level (11/08/2022) ???Ethanol, Serum or Plasma - 306 mg/dL FOLIC ACID (11/08/2022) ???Folic Acid Level - HEMOLYZED GLUCOSE POC (11/10/2022) ???Glucose, POC - 77 mg/dL High??Sensitivity??Troponin T (11/07/2022) ???High Sensitivity Troponin (HSTnT) - 15 ng/L Magnesium Level (11/08/2022) ???Magnesium - 1.8 mg/dL Phenobarbital Level (11/10/2022) ???Phenobarb Level - 17.9 mg/L PHOSPHORUS (11/08/2022) ???Phosphorus - 3.6 mg/dL PT (INR) (11/08/2022) ???INR - 1.0???Protime (PT) - 10.3 seconds PTT (11/08/2022) ???APTT - 24.8 seconds Salicylate Level (11/08/2022) ? ?Salicylate Level - <0.3 mg/dL Type and Screen (11/07/2022) ???Blood Type - O Positive???Antibody Screen - Negative VITAMIN B12 (11/08/2022) ???Vitamin B12 Level - 264 pg/mL Allergies (NKA means No Known Allergies) NKA No Known Medication Allergies Problems Active Problems??(7) Carpal Tunnel Syndrome?? COPD without exacerbation?? Diverticulosis?? Hernia, inguinal NOS?? Hypertension?? Tobacco abuse?? Venous thromboembolism?? Education Materials Below is the list of Educational Leaflet Providered with your Discharge Instructions. Valuables and Belongings I fully understand and agree that [facility] accepts no responsibility for all my personal property including clothing, toilet articles, radios, jewelry, dentures, hearing aids, rings, money, or any other property that is in my possession or is brought to me after admission. I understand certain valuables may be placed in a hospital safe for a short period of time. I understand that the hospital is not liable for loss or damage due to accident, fire, or other natural occurrence while said property is in the safe. I accept full responsibility for any personal property that I keep with me, and will not hold the hospital responsible in case of loss or disappearance. I acknowledge that i have been encouraged to send valuables and belongings home. ?? Review of Valuable and Belonging List: With patient Date for Pt to Sign Valuables/Belongings: 11/10/22 09:32:00 ?? Other Discharge Information ? Case Management Discharge Plan?? Discharge Plan?? Discharge Level of Care at Discharge: Home/Retirement/Foster Care ?? Pulmonary Rehab Status?? Pulmonary Rehab Discharge Status?? Respiratory Rate: 17 br/min ? Common Emergency Awareness Tips IS IT A STROKE? Act FAST and Check for these signs: FACE Does the face look uneven? ARM Does one arm drift down? SPEECH Does their speech sound strange? TIME Call at any sign of stroke ?? Heart Attack Signs Chest discomfort: Most heart attacks involve discomfort in the center of the chest and lasts more than a few minutes, or goes away and comes back. It can feel like uncomfortable pressure, squeezing, fullness or pain. Discomfort in upper body: Symptoms can include pain or discomfort in one or both arms, back, neck, jaw or stomach. Shortness of breath: With or without discomfort. Other signs: Breaking out in a cold sweat, nausea, or lightheaded. Remember, MINUTES DO MATTER. If you experience any of these heart attack warning signs, call to get immediate medical attention! ?? Smoking can increase your chances of developing chronic health problems and can cause harmful effects to other family members in your house. If you smoke, you are strongly encouraged to quit. Please call [facility] at [phone] or [phone] ([phone]) or log in to [email or web address] for referrals to smoking cessation programs. ?? The National Suicide Prevention Hotline is available 03/05 if you or someone you know needs to find a reason to keep living. By calling 5-785-163-[employer] (8162) you'll be connected to a skilled, trained counselor at a crisis center in your area. INPATIENT DISCHARGE INSTRUCTIONS SIGNATURE PAGE MICHELE ARREDONDO Location:[facility] Registration Date and Time:11/08/2022 02:07 [facility] Primary Care Physician: Rick CADENA (MT) , Eliecer Masters, I MICHELE ARREDONDO, have received the above patient education materials/instructions and have verbalized understanding. If ambulance or transport services are being used I further acknowledge being given a choice of service. ?? If you need to contact me, please call me at this number: . Patient/Senior Director Finance Name: Patient/Senior Director Finance Signature: Relationship to Patient: Witness Name/Signature: Date: * Event Display: Cardiac Rhythm Strips Authored Date: * Humberto Lim MD: VERIFY Humberto Lim MD: VERIFY Event Display: Result: Authored Date: CT Angio Head Hyperacute Stroke, CT Angio Neck Hyperacute Stroke Reason: Other:; Stroke; Clinical Question(s): Other:; Hematoma Aneurysm / Other: Right-sided weakness. TECHNIQUE: CT angiogram of the head and neck was performed after bolus administration of intravenous contrast. 100 mL of Omnipaque 300 was administered intravenously. Coronal and sagittal MIP reformatted images were obtained. Additional 3-D images were created on a separate workstation under concurrent supervision by the attending radiologist. All stenoses are measured using NASCET criteria. Weight-based protocol using automatic tube modulation was used to optimize exposure parameters. RADIATION DOSE PARAMETERS: CTDIvol Body: 8.67 mGy, DLP Body: 447 mGy*cm. CTDIvol Head: 45.80 mGy, DLP Head: 773 mGy*cm. COMPARISON: Noncontrast CT head performed concurrently. FINDINGS: CTA OF THE NECK: Arch: There is a three vessel aortic arch. There is mild atherosclerotic plaque of the aortic arch,but origins of the supra aortic vessels are patent. The subclavian arteries are patent. Heavy calcification of the origin of the right subclavian artery with minimal narrowing. Right carotid system: The common carotid and cervical internal carotid arteries are patent. There is calcified atherosclerotic plaque at the carotid bifurcation and proximal right ICA, but no ICA stenosis (0%) by NASCET criteria. Left carotid system: The common carotid and cervical internal carotid arteries are patent. There iscalcified atherosclerotic plaque at the carotid bifurcation, but no ICA stenosis (0%) by NASCET criteria. Right vertebral: Patent. Left vertebral: Patent. Other: Soft tissues and bones: No evidence of lymphadenopathy or mass. The thyroid is unremarkable. Visualized lung apices are clear. Partial fusion of the C4 and C5 vertebral bodies. Fusion of the C3-C4 facet joints. CTA OF THE HEAD: Anterior circulation: The intracranial internal carotid arteries are patent. Multifocal calcifications are present, and there is mild narrowing of the ophthalmic segment of the left internal carotid artery. The ICA termini are maintained. A right posterior communicating artery is present. The A1 and A2 segments of the anterior cerebral arteries are patent. The A2 is azygous. The M1 segment of the right middle cerebral artery is patent. The posterior division M2 branch is patent. The anterior division is attenuated with severe stenosis. Marked narrowing and occlusion of one of the early anterior division branches is noted. The M1 and M2 segments of the left middle cerebral artery are patent. Posterior circulation: Bilateral intracranial vertebral arteries, the basilar artery, and bilateralsuperior cerebellar and posterior cerebral artery branches are patent. Mild to moderate stenoses ofthe left P2 segment of the left posterior cerebral artery. Veins: Major dural venous sinuses are patent. Other: Soft tissues and bones: Patchy regions of diminished attenuation are present within the supratentorial white matter. A focal region of diminished density within the right frontal lobe correlates withthe region of diminished attenuation on the prior CT, which may represent chronic ischemic change. Orbits are unremarkable. Scattered paranasal sinus opacities. Multiple dental caries. IMPRESSION: 1. No acute intracranial large vessel occlusion. 2. Severe narrowing of the proximal anterior division right M2 MCA branch with attenuation and occlusion of an early branch arising from the M2 segment. The latter is of indeterminate age. MRI of thebrain can be obtained for further evaluation. 3. Mild to moderate stenoses of the P2 segment of the left posterior cerebral artery. 4. No hemodynamically-significant stenosis of the extracranial internal carotid and vertebral arteries. A preliminary report was issued to the emergency room by the [facility] service 11/08/2022 at 12:10 AM. This did not note the finding in the second impression. WSN: [id number] Ordering Physician: Candie Machado Dictated By: Humberto Lim MD Dictated Date/Time: 11/08/22 10:59 a Reviewed By: Humberto Lim MD Signed By: Humberto Lim MD Signed Date/Time: 11/08/22 10:59 am Transcribed By: DANUTA Transcribed Date/Time: 11/08/22 10:40 am * Humberto Lim MD: VERIFY Humberto Lim MD: VERIFY Event Display: Result: Authored Date: [id number] CT Angio Head Hyperacute Stroke, CT Angio Neck Hyperacute Stroke Reason: Other:; Stroke; Clinical Question(s): Other:; Hematoma Aneurysm / Other: Right-sided weakness. TECHNIQUE: CT angiogram of the head and neck was performed after bolus administration of intravenous contrast. 100 mL of Omnipaque 300 was administered intravenously. Coronal and sagittal MIP reformatted images were obtained. Additional 3-D images were created on a separate workstation under concurrent supervision by the attending radiologist. All stenoses are measured using NASCET criteria. Weight-based protocol using automatic tube modulation was used to optimize exposure parameters. RADIATION DOSE PARAMETERS: CTDIvol Body: 8.67 mGy, DLP Body: 447 mGy*cm. CTDIvol Head: 45.80 mGy, DLP Head: 773 mGy*cm. COMPARISON: Noncontrast CT head performed concurrently. FINDINGS: CTA OF THE NECK: Arch: There is a three vessel aortic arch. There is mild atherosclerotic plaque of the aortic arch,but origins of the supra aortic vessels are patent. The subclavian arteries are patent. Heavy calcification of the origin of the right subclavian artery with minimal narrowing. Right carotid system: The common carotid and cervical internal carotid arteries are patent. There is calcified atherosclerotic plaque at the carotid bifurcation and proximal right ICA, but no ICA stenosis (0%) by NASCET criteria. Left carotid system: The common carotid and cervical internal carotid arteries are patent. There iscalcified atherosclerotic plaque at the carotid bifurcation, but no ICA stenosis (0%) by NASCET criteria. Right vertebral: Patent. Left vertebral: Patent. Other: Soft tissues and bones: No evidence of lymphadenopathy or mass. The thyroid is unremarkable. Visualized lung apices are clear. Partial fusion of the C4 and C5 vertebral bodies. Fusion of the C3-C4 facet joints. CTA OF THE HEAD: Anterior circulation: The intracranial internal carotid arteries are patent. Multifocal calcifications are present, and there is mild narrowing of the ophthalmic segment of the left internal carotid artery. The ICA termini are maintained. A right posterior communicating artery is present. The A1 and A2 segments of the anterior cerebral arteries are patent. The A2 is azygous. The M1 segment of the right middle cerebral artery is patent. The posterior division M2 branch is patent. The anterior division is attenuated with severe stenosis. Marked narrowing and occlusion of one of the early anterior division branches is noted. The M1 and M2 segments of the left middle cerebral artery are patent. Posterior circulation: Bilateral intracranial vertebral arteries, the basilar artery, and bilateralsuperior cerebellar and posterior cerebral artery branches are patent. Mild to moderate stenoses ofthe left P2 segment of the left posterior cerebral artery. Veins: Major dural venous sinuses are patent. Other: Soft tissues and bones: Patchy regions of diminished attenuation are present within the supratentorial white matter. A focal region of diminished density within the right frontal lobe correlates withthe region of diminished attenuation on the prior CT, which may represent chronic ischemic change. Orbits are unremarkable. Scattered paranasal sinus opacities. Multiple dental caries. IMPRESSION: 1. No acute intracranial large vessel occlusion. 2. Severe narrowing of the proximal anterior division right M2 MCA branch with attenuation and occlusion of an early branch arising from the M2 segment. The latter is of indeterminate age. MRI of thebrain can be obtained for further evaluation. 3. Mild to moderate stenoses of the P2 segment of the left posterior cerebral artery. 4. No hemodynamically-significant stenosis of the extracranial internal carotid and vertebral arteries. A preliminary report was issued to the emergency room by the [facility] service 11/08/2022 at 12:10 AM. This did not note the finding in the second impression. WSN: [id number] Ordering Physician: Candie Machado Dictated By: Humberto Lim MD Dictated Date/Time: 11/08/22 10:59 a Reviewed By: Humberto Lim MD Signed By: Humberto Lim MD Signed Date/Time: 11/08/22 10:59 am Transcribed By: DANUTA Transcribed Date/Time: 11/08/22 10:40 am * Cha , ADI S: TRANSCRIBE Saqib Crowley MD S: VERIFY Event Display: Result: Authored Date: [id number] CT Head-Hyper Acute Stroke INDICATION: Reason: Other:; Neuro deficit, acute, stroke suspected; Clinical Question(s): Other:; Hematoma Infarction TECHNIQUE: Noncontrast head CT using axial technique and reconstructed in axial and coronal planes.Iterative reconstruction techniques are used to optimize dose and image quality. COMPARISON: 12/07/2021 FINDINGS: Clinic Supervisor view findings, lines and tubes: None. BRAIN AND EXTRA-AXIAL SPACES: No parenchymal hemorrhage, midline shift, or mass effect. [place]-white matter differentiation is wellpreserved. No acute infarct. Ventricles, sulci, and basilar cisterns are normal. Mild low-density white matter changes. No subarachnoid hemorrhage. No subdural or epidural collection. CALVARIUM, SKULL BASE, AND SOFT TISSUES: No fractures or suspicious bony lesions. The paranasal sinuses and mastoid air cells are clear. Visualized orbits and globes are intact. The extracranial soft tissues are unremarkable. IMPRESSION: No acute intracranial pathology. WSN: [id number] Ordering Physician: Candie Machado Dictated By: Saqib Crowley MD Dictated Date/Time: 11/07/22 11:27 p Reviewed By: Saqib Crowley MD Signed By: Saqib Crowley MD Signed Date/Time: 11/07/22 11:27 pm Transcribed By: DANUTA Transcribed Date/Time: 11/07/22 11:26 pm Hospital Progress note * Cydney Almanzar RN: VERIFY, PERFORM, SIGN Event Display: Progress Note Hospital Authored Date: [id number] Patient: MICHELE ARREDONDO Age: 67 years Sex: Male : 1955 Associated Diagnoses: None Author: Cydney Almanzar RN Findings Problem Related to Alteration in Neurological : Alteration in Neurological Function/new 11/10/2022 9:00 EST Alteration in Neuro status Related to Other: ams etoh withdrawal Goals & Outcomes, Neurological Pt will be discharged without infection, Pt will be hemodynamically stable, Pt will be Neurologically stable Interventions, Neurological Assess/monitor neurologic status, Assess/monitor VS per unit standards & prn, Call/Report variances in assessments to provider, Collaborate with Nutrition, If no bowelmovement in 3 days activate bowel regime, Physical assessment per unit standards, Provide emotionalsupport to Pt/caregiver Goals/Interventions, Neurological Yes Neurological, Problem Start 11/09/2022 9:11 Reviewed plan with, Neurological Patient Patient Progression, Neurological Pt progressing according to plan . Nursing Data Neurological Data. : Neurological Data. 11/10/2022 9:06 EST Tongue Disposition Midline Neurological Symptoms Other: AMS ETOH resolved Level of Consciousness Full Consciousness Orientated to person, place, time Person, Place, Time, Event Hallucinations None Facial Symmetry Intact Characteristics of Speech Clear and normal Swallowing Difficulty None Pupil description, left Regular Pupil description, right Regular Pupil reaction, left Brisk Pupil reaction, right Brisk Pupil Size, Left 3 mm Pupil Size, Right 3 mm Strength LUE 4-Active movement against gravity & some resistance Strength RUE 4-Active movement against gravity & some resistance Strength LLE 4-Active movement against gravity & some resistance Strength RLE 4-Active movement against gravity & some resistance Tone LUE Normal Tone RUE Normal Tone LLE Normal Tone RLE Normal Sensation LUE Intact Sensation RUE Intact Sensation LLE Intact Sensation RLE Intact Movement LUE Spontaneous, To command Movement RUE Spontaneous, To command Movement LLE Spontaneous, To command Movement RLE Spontaneous, To command Gait Steady, Other: staedy with walker Tremors Physiologic Response Eye Opening Spontaneously Motor Response-Adult Obeys commands Verbal Response-Adult Oriented and converses Alejandro Coma Score 15 Neuro WNL except Corneal/Blink Reflex Intact right, Intact left Eyes and Movements Conjugate gaze: Move in same direction at same speed Headache None Memory Intact Swallow - Neuro Normal . Vital Signs : VITAL SIGNS SECTION 11/10/2022 7:46 EST Temperature 98.2 DegF Temperature Route Oral Pulse Rate 104 bpm H Respiratory Rate 18 br/min Systolic Blood Pressure 140 mm Hg H Diastolic Blood Pressure 78 mm Hg Blood pressure sites Arm, left Mean Arterial Pressure 99 mm Hg Pulse Pressure 62 mm Hg Oxygen Saturation 94 % Mode of Delivery (Oxygen) Room air . Narrative/Incidental /Ox4, speech is claer, follows all commands, PERRL 3mm periorbital redness denies any vision change, BUE tremor reports is baseline also reports not having alcohol for over 1 month MD aware No longerCIWA has no signs and symptos of alcohol withdrawal, VSS WNL, IV on the left patent. SR on tele no edema denies CP, walker to ambulate, redness on buttocks z guard appiled, ON RA 95% copd has cough, incontinet of urine and bowel having diarrhea c diff negative LBM 11/10, Plan id to be discharged to home [facility] called to discharge unit. . * Adilia Del Rosario MD, Billie: PERFORM Event Display: Progress Note Hospital Authored Date: Patient: ??MICHELE ARREDONDO ? Age:??67 Years?Sex:??Male?:??1955?? Subjective Pt feels much better. Motivated to quit drinking. Noted to have diarrhea which he reports is chronic. Review of Systems Constitutional:??No weight loss, fever, chills, weakness/ fatigue. HEENT:??No visual loss, blurred vision, double vision or yellow sclera. No hearing loss, sneezing, congestion, runny nose or sore throat. Skin:??No rash or itching. Cardiovascular:??No chest pain, chest pressure or chest discomfort. No palpitations. No??pedal edema. Respiratory:??No shortness of breath, cough or sputum production. Gastrointestinal:??No anorexia, nausea, vomiting. +diarrhea. No abdominal pain. No??blood in stool. Genitourinary:??No burning micturition. No urinary frequency or incontinence. Neurologic:??No headache, dizziness, syncope, unilateral weakness, ataxia, numbness or tingling in the extremities. No change in bowel or bladder control. Musculoskeletal:??No muscle pain, back pain, joint pain or stiffness. Hematologic:??No bleeding or bruising. Lymphatics:??No enlarged lymph nodes. Psychiatric:??No depression or anxiety. Endocrine:??No reports of sweating. No cold or heat intolerance. No polyuria or polydipsia. Objective Vital Signs?? Temperature: 98.3 DegF (11/09/22 12:30:00) Temperature Route: Oral (11/09/22 12:30:00) Pulse Rate: 80 bpm (11/09/22 12:30:00) Heart Rate Monitored: 80 bpm (11/09/22 11:00:00) Respiratory Rate: 18 br/min (11/09/22 12:30:00) Systolic Blood Pressure: 119 mm Hg (11/09/22 12:30:00) Diastolic Blood Pressure: 65 mm Hg (11/09/22 12:30:00) Blood pressure sites: Arm, left (11/09/22 12:30:00) Mean Arterial Pressure: 83 mm Hg (11/09/22 12:30:00) Pulse Pressure: 54 mm Hg (11/09/22 12:30:00) Oxygen Saturation: 94 % (11/09/22 12:30:00) Liters per Minute: 2 L/min (11/09/22 12:30:00) Mode of Delivery (Oxygen): Nasal cannula (11/09/22 12:30:00) Early Warning Score: 5 (11/09/22 12:40:22) ? Physical Exam General:??Alert, in no acute cardiopulmonary distress. Mild tremor. Mental Status:??Oriented to person, place and time. Normal affect. Head:??Normocephalic. Eyes:??Pupils are equal, round and reactive to light. Extraocular muscles intact. Ear, Nose and Throat:??Oropharynx clear, mucous membranes moist. Ears and nose without masses, lesions or deformities. Neck:??Supple, Full range of motion. Respiratory:??Clear to auscultation and percussion. No wheezing, rales or rhonchi. Cardiovascular:??Heart sounds normal. No thrills. Regular rate and rhythm, no murmurs, rubs or gallops. Gastrointestinal:??Abdomen soft, non-tender, non-distended. Normal bowel sounds. No pulsatile mass.No hepatosplenomegaly. Genitourinary:??No costovertebral angle tenderness. Neurologic:??Cranial nerves II-XII grossly intact. No focal neurological deficits. Moves all extremities spontaneously. Sensation intact bilaterally. Skin:??No rashes or lesions. No petechiae or purpura. No edema. Musculoskeletal:??No cyanosis or clubbing. No gross deformities. Normal range of motion. Results Recent Labs BLOOD COUNT & DIFF WBC 5.7 k/mm3 ()?? 11/09/2022 01:44 RBC 3.52 m/mm3 (Low)?? 11/09/2022 01:44 Hgb 12.7 Gm/dL (Low)?? 11/09/2022 01:44 Hct 36.4 % (Low)?? 11/09/2022 01:44 MCV 103.4 femtoliters (High)?? 11/09/2022 01:44 MCH 36.1 pg (High)?? 11/09/2022 01:44 MCHC 34.9 g/dL ()?? 11/09/2022 01:44 Platelet Count 110 k/mm3 (Low)?? 11/09/2022 01:44 RDW-SD 57.1 femtoliters (High)?? 11/09/2022 01:44 MPV 10.0 femtoliters ()?? 11/09/2022 01:44 Nucleated RBC (Automated) 0.0 #/100 WBC'S ()?? 11/09/2022 01:44 Abs. NRBC 0.0 k/mm3 ()?? 11/09/2022 01:44 Abs. Neut 4.2 k/mm3 ()?? 11/09/2022 01:44 Abs. Lymph 0.7 k/mm3 (Low)?? 11/09/2022 01:44 Abs. Coryell 0.6 k/mm3 ()?? 11/09/2022 01:44 Abs. Eo 0.1 k/mm3 ()?? 11/09/2022 01:44 Abs. Baso 0.0 k/mm3 ()?? 11/09/2022 01:44 Neut % 74.0 % ()?? 11/09/2022 01:44 Lymph % 12.9 % (Low)?? 11/09/2022 01:44 Coryell % 10.1 % ()?? 11/09/2022 01:44 Eos % 1.6 % ()?? 11/09/2022 01:44 Baso % 0.7 % ()?? 11/09/2022 01:44 Imm Gran 0.7 % ()?? 11/09/2022 01:44 Abs. Imm Gran 0.0 k/mm3 ()?? 11/09/2022 01:44 ?? CARDIAC CK, Total 124 units/L ()?? 11/08/2022 00:00 ?? CHEM GENERAL Sodium 137 mmol/L ()?? 11/09/2022 01:44 Potassium 3.5 mmol/L (Low)?? 11/09/2022 01:44 Chloride 96 mmol/L (Low)?? 11/09/2022 01:44 Bicarbonate Level 24 mmol/L ()?? 11/09/2022 01:44 Anion Gap 17 ()?? 11/09/2022 01:44 Glucose Level 104 mg/dL (High)?? 11/09/2022 01:44 Glucose, POC 93 mg/dL ()?? 11/09/2022 11:28 BUN 4 mg/dL (Low)?? 11/09/2022 01:44 Creatinine-Blood 0.7 mg/dL ()?? 11/09/2022 01:44 Estimated GFR Creatinine 104 ML/MIN/1.73 M2 ()?? 11/09/2022 01:44 Calcium 8.3 mg/dL (Low)?? 11/09/2022 01:44 Phosphorus 3.6 mg/dL ()?? 11/08/2022 00:00 Magnesium 1.8 mg/dL ()?? 11/08/2022 00:00 Protein, Total 5.9 Gm/dL (Low)?? 11/09/2022 01:44 Albumin 4.1 Gm/dL ()?? 11/09/2022 01:44 AG Ratio 2.3 ()?? 11/09/2022 01:44 Alkaline Phosphatase 63 units/L ()?? 11/09/2022 01:44 AST (SGOT) 42 units/L (High)?? 11/09/2022 01:44 ALT (SGPT) 32 units/L ()?? 11/09/2022 01:44 Bilirubin, Total 0.6 mg/dL ()?? 11/09/2022 01:44 Vitamin B12 Level 264 pg/mL ()?? 11/08/2022 00:00 Folic Acid Level HEMOLYZED ng/mL ()?? 11/08/2022 00:00 ?? COAG INR 1.0 ()?? 11/08/2022 00:00 Protime (PT) 10.3 seconds ()?? 11/08/2022 00:00 APTT 24.8 seconds ()?? 11/08/2022 00:00 ?? TOXICOLOGY/TDM Ethanol, Serum or Plasma 306 mg/dL (Abnormal)?? 11/08/2022 00:00 Salicylate Level <0.3 mg/dL (Low)?? 11/08/2022 00:00 Acetaminophen Level <5 mg/L (Low)?? 11/08/2022 00:00 Phenobarb Level 16.8 mg/L ()?? 11/09/2022 01:44 ?? VIROLOGY COVID-19 by RT-PCR NEGATIVE ()?? 11/09/2022 04:00 ? Microbiology ?? COVID-19 (Novel Coronavirus), Rapid PCR?? Completed?? Source: Nasal Body Site: Nose Collected Dt/Tm: 11/07/2022 23:13 Last Updated Dt/Tm: 11/08/2022 03:57 ? Assessment/Plan Diagnoses Alcohol dependence with uncomplicated withdrawal ??(F10.230) Confusion ??(R41.0) Pancytopenia ??(D61.818) 1. ??COPD without exacerbation ??(J44.9) 2. ??Hypertension ??(I10) 3. ??Venous thromboembolism ??(I82.90) ?? 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 He was noted to have confusion, right-sided weakness and tremors. ? Alcohol Dependence: Alcohol withdrawal: Confusion (R41.0): Was brought in by ambulance for question of stroke as he was reportedly noted to have right sided weakness and confusion. There is no weakness on exam after his arrival here. Hyperacute head CT with no acute intracranial pathology. CT angiogram of the head and neck ([facility] report) with no large vessel occlusion or stenosis.??Admitting MD??reviewed case with Neurology who thinks??his presentation ismore c/w??alcohol withdrawal rather than stroke. Confusion, weakness and tremor??likely related to alcohol withdrawal. Blood alcohol level was significantly elevated at 306. Other differential include withdrawal seizure -CIWA protocol with??phenobarb -IV thiamine for history of Wernicke's encephalopathy -Multivitamin, folic acid, pyridoxine -Addiction medicine consult/SW ? detox program ? COPD without exacerbation (J44.9):?? - Breo, Spiriva, albuterol PRN ? Hypertension (I10): -??Amlodipine 5 mg daily -??Lisinopril 5 mg daily? History of right leg DVT in 2019: Unclear if this was provoked or unprovoked and whether he still needs to be on anticoagulation. He tells me that he is on apixaban but only takes it once a day.?? - Apixaban 5 mg po??bid on hold b/o Phenobarb.??SQ Lovenox till off Phenobarb. ? Pancytopenia (D61.818): Likely secondary to alcohol use. No recent blood work in our system to compare with. ?? Vit??B12??deficiency: Started Vit B 12??1000 mcg po qd ?? Chronic diarrhea: Pt report he??has diarrhea for years. No workup so far. [place] in 2012 with diverticulosis but otherwise nl. Denies abd pain or cramping. No melena or hematochezia. No fever, chills. No joint symptoms.No rash. - C. diff - GI PCR - Outpatient colo ? Discharge Planning:??? detox program ? * Mariana , Page: VERIFY, PERFORM, SIGN Event Display: Progress Note Hospital Authored Date: Patient: MICHELE ARREDONDO Age: 67 years Sex: Male : 1955 Associated Diagnoses: None Author: Mariana , Page Findings Narrative/Incidental Patient is alert, confused to place and time and questionably having hallucinations. He oriented with many interventions and continued reminders. BPs stable, afebrile. NS-ST with turn and repositioning; HR reaching 120. He is a bit more restless today, requiring frequent reminders. [place] in place after much education and encouragement to use. Cdiff sample sent this morning. Attempted to place dignishielf after patient agreed however he removed it and forgot to ask for help . Pt is using 2L NC.02 88-92% Patient has been downgraded and report called. . Portable XR Chest Views * [facility]SP[facility]ers[facility] , CIS S: TRANSCRIDARINEL Barton MD , Angelica Taylor: VERIFY Event Display: Result: Authored Date: Chest Portable Reason: Other:; Stroke; Clinical Question(s): CHF COMPARISON: 12/10/2021 FINDINGS: LINES AND TUBES: None. LUNGS AND PLEURA: Somewhat linear bilateral lower lung airspace opacities. Pulmonary vascularity is normal. No pleural effusion. No pneumothorax. HEART, MEDIASTINUM AND LULU: Cardiac silhouette size upper limits of normal. Normal mediastinal and hilar contour. BONES AND SOFT TISSUES: No acute abnormality. IMPRESSION: Bibasilar somewhat linear airspace opacities most likely represent atelectasis. WSN: [id number] Ordering Physician: Candie Machado Dictated By: Angelica Barton MD Dictated Date/Time: 11/08/22 8:31 am Reviewed By: Angelica Barton MD Signed By: Angelica Barton MD Signed Date/Time: 11/08/22 8:31 am Transcribed By: DANUTA Transcribed Date/Time: 11/08/22 8:28 am Patient Care team information Care Team Personnel Name: Rick CADENA (MT) , Eliecer Masters Position: Reference Physician Member Role: PCP Address: Address: [address] [place] [id number] [place] Name: Angelika Russell RN Position: [facility] RN Member Role: Primary Care Nurse Name: Marifer Agustin RN Position: [facility] RN Member Role: Primary Care Nurse Name: Gela Peña Position: [facility] RN Member Role: Primary Care Nurse Name: Valente Rao RN Position: [facility] RN Supv Member Role: Primary Care Nurse Name: Candie Machado DO Position: [facility] Resident Member Role: ED Resident Address: Address: [address] [place] [address] Name: Jamie Gamez MD Position: [facility] ED Medicine MD Member Role: ED Attending Physician Address: Address: [address] [place], [place] [address] [place] [address]- Name: Brisa Burgos RN Position: [facility] ED RN W/OE and Tasks Member Role: Patient Care Provider Name: Haven Esparza Position: [facility] ED TA [facility] Member Role: Automation And Controls Manager Care Team Related Persons Name: TIFFANY MAURICE Address: [address] [address]
--- OUTSIDE RECORDS SUMMARY | 2023-03-28 18:25 | XMS_ITS | Continuity of Care Document ---
Author Name Unknown Organization [facility] ter Address [address] [place] [id number]- Care Team Providers Care Anesthetist Name Role Phone Rick CADENA ([place]), Eliecer Masters Primary Care Physician Encounter [facility] [place] Date(s): 12/15/21 - 01/14/[address] [address] Attending Physician: Not on Staff, Attending MD Admitting Physician: Not on Staff, Admitting MD Referring Physician: Not on Staff, Referring MD Allergies, Adverse Reactions, Alerts No Known Allergies Immunizations Given and Recorded Vaccine Date Status Refusal Reason SARS-CoV-2 (COVID-19) mRNA-1273 vaccine 01/22/21 R ecorded SARS-CoV-2 (COVID-19) mRNA-1273 vaccine 12/25/20 R ecorded Medications albuterol inhaler (OP) 0 Refills, Maintenance Start Date: 12/08/21 Status: Ordered amLODIPine 5 mg oral tablet 5 mg, 1, tablet, By Mouth, Daily, # 30 tablet, Refills 0, Maintenance, 12/08/21 1:36:00 EST, Partial fill upon patient request if the prescription is for a schedule II opioid drug. Start Date: 12/08/21 Status: Ordered apixaban Starter Pack 5 mg oral tablet 2 tablet = 10 mg, By Mouth, 2 times a day, followed by 1 tablet by mouth twice daily for 23 days, #74 tablet, 0 Refills, Maintenance, 09/27/19 20:56:00 EST Start Date: 09/27/19 Stop Date: 10/04/19 Status: Ordered ergocalciferol 98586 iu oral capsule 50,000 International_Units, 1, capsule, By Mouth, Every week, Take the first dose 12/19 then every week after that for 5 weeks, # 5 capsule, Refills 0, Tot. Refills 0, Maintenance, 12/16/21 8:45:00 EST, Route to Pharmacy Electronically, [facility] Start Date: 12/16/21 Stop Date: 01/20/22 Status: Ordered folic acid 1 mg oral tablet 1 mg, 1, tablet, By Mouth, Daily, # 30 tablet, Refills 0, Tot. Refills 0, Maintenance, 12/16/21 8:46:00 EST, Route to Pharmacy Electronically, [facility], Partial fill upon patient request if the prescription is for a schedule II opioid... Start Date: 12/16/21 Status: Ordered Golytely - oral powder for reconstitution 240 mL, By Mouth, Every 10 minutes, # 1 each, 0 Refills, Maintenance, REC Powder Start Date: 02/26/12 Status: Ordered lisinopril 5 mg oral tablet 5 mg, 1, tablet, By Mouth, Daily, # 30 tablet, Refills 0, Maintenance, 12/08/21 1:37:00 EST, Partial fill upon patient request if the prescription is for a schedule II opioid drug. Start Date: 12/08/21 Status: Ordered mirtazapine 30 mg oral tablet 1 tablet = 30 mg, By Mouth, Daily at bedtime, # 30 tablet, 0 Refills, Maintenance, 12/08/21 1:37:00EST, Tablet, Partial fill upon patient request if the prescription is for a schedule II opioid drug. Start Date: 12/08/21 Status: Ordered No Home Meds See Instructions, # 1 box, Maintenance, no meds, 02/26/12 11:34:27 Start Date: 02/26/12 Status: Ordered pyridoxine 50 mg oral tablet 50 mg, 1, tablet, By Mouth, Daily, # 30 tablet, Refills 0, Tot. Refills 0, Maintenance, 12/16/21 8:47:00 EST, Route to Pharmacy Electronically, [facility], Partial fill upon patient request if the prescription is for a schedule II opioid... Start Date: 12/16/21 Status: Ordered thiamine 100 mg oral tablet 100 mg, 1, tablet, By Mouth, Daily, for 30 days, # 30 tablet, Refills 0, Tot. Refills 0, Acute 04/07/22 8:48:00 EDT, 12/16/21 8:48:00 EST, Route to Pharmacy Electronically, [facility], Partial fill upon patient request if the prescriptio... Start Date: 12/16/21 Stop Date: 01/15/22 Status: Ordered tiotropium 2.5 mcg/inh inhalation aerosol 2 puffs, Inhalation, Daily, # 4 Gm, 0 Refills, Maintenance, 12/08/21 1:38:00 EST, Aerosol, Partial fill upon patient request if the prescription is for a schedule II opioid drug. Start Date: 12/08/21 Status: Ordered Walker See Instructions, # 1 each, Maintenance, Walker Dx: Frequent falls, Weakness, 12/16/21 11:33:00 EST, Supply Start Date: 12/16/21 Status: Ordered Problem List Condition Effective Dates Status Health Status Inform ant Carpal Tunnel Syndrome(Confirmed) 1 Active COPD without exacerbation(Confirmed) Active Hernia, inguinal NOS(Confirmed) 2 Active Hypertension(Confirmed) Active Venous thromboembolism(Confirmed) Active Tobacco abuse(Confirmed) Active 1mild 2rt
--- OUTSIDE RECORDS SUMMARY | 2023-03-28 18:25 | XMS_ITS | Continuity of Care Document ---
Author Name Unknown Organization [facility] ter Address [address] [place] [id number]- Care Team Providers Care Invasive Physician Name Role Phone Rick CADENA ([place]), Eliecer Masters Primary Care Physician Encounter [facility] [place] Date(s): 09/27/19 - 09/27/[address] [address]- [facility] Encounter Diagnosis DVT of popliteal vein(Final) - 09/27/19 Discharge Disposition: A-D/C Home Attending Physician: Valente Bledsoe MD Admitting Physician: Valente Bledsoe MD Referring Physician: Not on Staff, Referring MD Allergies, Adverse Reactions, Alerts Substance Reaction Severity Status NKA Active Medications apixaban Starter Pack 5 mg oral tablet 2 tablet = 10 mg, By Mouth, 2 times a day, followed by 1 tablet by mouth twice daily for 23 days, #74 tablet, 0 Refills, Maintenance, 09/27/19 20:56:00 EST Start Date: 09/27/19 Stop Date: 10/04/19 Status: Ordered Golytely - oral powder for reconstitution 240 mL, By Mouth, Every 10 minutes, # 1 each, 0 Refills, Maintenance, REC Powder Start Date: 02/26/12 Status: Ordered No Home Meds See Instructions, # 1 box, Maintenance, no meds, 02/26/12 11:34:27 Start Date: 02/26/12 Status: Ordered Problem List Condition Effective Dates Status Health Status Inform ant Carpal Tunnel Syndrome(Confirmed) 1 Active Hernia, inguinal NOS(Confirmed) 2 Active Tobacco abuse(Confirmed) Active 1mild 2rt Vital Signs Most recent to oldest [Reference Range]: 1 2 3 Oxygen Saturation [94-100 %] 99 % (09/27/19 11:36 PM) 94 % (09/27/19 9:24 PM) 100 % (09/27/19 7:31 PM) Pulse Rate [55-90 bpm] 73 bpm (09/27/19 11:36 PM) 69 bpm (09/27/19 9:24 PM) 74 bpm (09/27/19 7:31 PM) Blood Pressure [90-138/55-84 mm Hg] 126/76mm Hg (09/27/19 11:36 PM) 123/84mm Hg (09/27/19 9:24 PM) 138/75mm Hg (09/27/19 7:31 PM) Respiratory Rate [16-30 br/min] 16 br/min (09/27/19 11:36 PM) 18 br/min (09/27/19 9:24 PM) 16 br/min (09/27/19 7:31 PM) Temperature [96.8-100.4 DegF] 98.8 DegF (09/27/19 9:24 PM) 98.6 DegF (09/27/19 7:31 PM) 98.6 DegF (09/27/19 5:19 PM) Mode of Delivery (Oxygen) Room air (09/27/19 11:36 PM) Room air (09/27/19 9:24 PM) Room air (09/27/19 7:31 PM) Blood pressure sites Arm, left (09/27/19 9:24 PM) Arm, right (09/27/19 7:31 PM) Arm, left (09/27/19 5:19 PM) Temperature Route Oral (09/27/19 9:24 PM) Oral (09/27/19 7:31 PM) Oral (09/27/19 5:19 PM)
[2023-03-28 18:30] VITALS: BP 105/81; PULSE 104; RESP 18; O2SAT 93
[2023-03-28 19:01] LABS: COVID-19 Test Negative (Negative); IDNOW Serial# 6674DD1D
--- NOTE | 2023-03-28 19:04 | PC.NURSE ---
assumed care of pt handoff report from ANGEL Boo no apparent distress pt requesting ice water- given
[2023-03-28] MEDS: Albuterol/Iprat 2.5/0.5MG 3 ML AMPUL.NEB INHALE (19:11)
[2023-03-28 19:18] LABS: Reflex Lactate? Lactic Acid Added
[2023-03-28 20:08] LABS: ~Lactic Acid-LAB USE ONLY 2.8 mmol/L (0.5-2.0)
[2023-03-28] MEDS: Bacitracin Oint 0.9 GM PACKET 1 APPL TOPICAL (20:37)
--- NOTE | 2023-03-28 20:37 | PC.NURSE ---
applied bacitracin per MAR to pt's wounds
--- NOTE | 2023-03-28 21:18 | P.HPHOSP_ITS ---
patient seen and examined at bedside. I agree with the findings as below. Patient will be admitted for alcohol withdrawal as well as acute diverticulitis. For full H&P please see below History of Present Illness Date of Service: 03/28/23 Attending physician on admission: Ekaterina Robledo Chief Complaint: Painful bilateral shoulder wounds, abdominal pain Pt is a 67-year-old male with a PMH significant for?HTN, alcohol use disorder, hx of DVT in right leg on Eliquis, and COPD who presents to the ED with?multiple complaints of painful bilateral should wounds and lower abdominal pain. Pt says his should wounds just appeared , the left two days ago and the right yesterday. Does not know of any precipitating factors: Denies trauma, bites, cuts, scratches, any recent falls. Patient says he has no idea how or why they appeared, and they have not seemed to change at all since he 1st noticed them. Notes they sometimes ?leak some kind of oil? from them. He denies experiencing similar lesions before. Patient also complains of diffuse lower abdominal pain, crampy in nature and rated an 8/10 that began yesterday. Patient denies nausea, vomiting, fever, chills, diarrhea. Patient states he has ?constipation?, but notes that he had a normal bowel movement yesterday. Denies hematochezia or melena. Has chronic shortness of breath secondary to COPD, at baseline. Pat edward denies chest pain/pressure, palpitations. Patient has a distant history of cocaine use over 15 years ago. Smokes half a pack of cigarettes a day. Also notes he drinks 5 nips every day starting at 3-4 o'clock in the afternoon. Last drink was yesterday evening. Denies a history of alcohol withdrawal, but notes he often gets tremors that are sometimes alleviated by drinking. In the ED patient was afebrile but tachycardic up to 104. Labs were significant for leukocytosis of 11.8. ESR 41, CRP 15.41, lactic acid 3.0 with repeat 2.8. CXR showed mild central bronchial thickening which could indicate reactive airway disease or atypical/viral infections. CT?of abdomen and pelvis showed a cute uncomplicated diverticulitis of the sigmoid colon, distended gallbladder with no gallstones appreciated, hepatic steatosis, and a small fat containing umbilical hernia. Pt was treated with IVF, Zosyn, DuoNebs, and bacitracin. Pt will be admitted to the hospital for treatment and further evaluation of diverticulitis and alcohol withdrawal. Review of Systems Review of Systems: Painful bilateral wounds to shoulders Lower abdominal pain Chronic shortness of breath no worse than normal Denies nausea, vomiting, fever, chills, diarrhea Denies hematochezia or melena Denies swelling or pain in lower legs No chest pain/pressure, palpitations Yes all other systems are reviewed and are negative COUNTS INCLUDE 234 BEDS AT THE [facility] Medical History (Updated 03/28/23 @ 21:36 by ANDRE Levi) Alcohol withdrawal Social History Alcohol intake: current Alcohol intake frequency: 3 or more drinks per day Alcohol type: beer Advance Directives: No Advance Directives Information Provided: No Meds Allergies Allergy/AdvReac Type Severity Reaction Status Date / Time No Known Allergies Allergy Verified 03/28/23 21:22 Active Medications: Current Medications Albuterol/Ipratropium (Albuterol/Iprat 2.5/0.5mg 3 Ml Ampul.Neb) 3 ml INHALE RQ4H WHILE AWAKE PRN PRN Reason: Wheezing Pharmacy Consult (Consult Rx Perform Med Rec) 1 each MISCELLANE ONCE PRN PRN Reason: Consult order Pharmacy Consult (Consult Rx Etoh Phenob Im/Po) 1 each MISCELLANE ONCE PRN; Protocol PRN Reason: Consult order Sodium Chloride (0.9 % Sodium Chloride Flush 3 Ml Syringe) 3 ml IVFLUSH [facility] Home Medications Medication Instructions Recorded Confirmed Last Taken Type albuterol sulfate 90 mcg/actuation 2 inh inhalation QID PRN Shortness 12/07/21 12/07/21 Unknown History aerosol inhaler Of Breath amlodipine 5 mg tablet 5 mg PO DAILY 12/07/21 12/07/21 Unknown History apixaban 2.5 mg tablet 2.5 mg PO BID 12/07/21 12/07/21 Unknown History ketoconazole 2 % topical cream 1 appl topical TID 12/07/21 12/07/21 Unknown History lisinopril 5 mg tablet 5 mg PO DAILY 12/07/21 12/07/21 Unknown History mirtazapine 30 mg tablet 30 mg PO BEDTIME 12/07/21 12/07/21 Unknown History tiotropium bromide 2.5 2 puff inhalation DAILY 12/07/21 12/07/21 Unknown History mcg/actuation mist for inhalation Physical Exam Vital Signs and Narrative: Vital Signs: Last Vital Signs Temp 98.7 F 03/28/23 16:50 Pulse 104 H 03/28/23 18:30 Resp 18 03/28/23 18:30 BP 105/81 03/28/23 18:30 Pulse Ox 93 03/28/23 18:30 O2 Del Method Room Air 03/28/23 18:30 BMI result Body Mass Index 23.4 Constitutional: Alert, unkempt, looks mildly uncomfortable, in no acute distress. Mental Status: Oriented to person, place and time. Eyes: Pupils are equal, round, and reactive to light. Ear, Nose, and Throat: Oropharynx clear, mucous membranes moist. Ears and nose without deformities. Trachea midline. No tongue fasciculations, but voice tremulous. Respiratory: Diffuse expiratory rhonchi bilaterally. Cardiovascular: S1, S2 regular. No murmurs, rubs, or gallops. Gastrointestinal: Abdomen soft, non-distended. Significant tenderness in lower abdomen and left lower quadrant. Normal bowel sounds. Neurologic: Cranial nerves II-XII are grossly intact bilaterally. No focal neurological deficits. Moves all extremities spontaneously. Minor upper extremity tremors noted. Skin: Superficial abrasions to shoulders bilaterally, left significantly larger than right. No purulent drainage noted. No obvious signs of infection. See pictures below. Musculoskeletal: No cyanosis or clubbing. Extremities: No edema. Psychiatric: Normal mood and affect. Results Labs 03/28/23 17:12 03/28/23 17:13 Labs: Laboratory Results - last 24 hr 03/28/23 03/28/23 03/28/23 17:12 17:12 17:13 MCV 99.5 H MCH 33.2 H MCHC 33.3 RDW 15.4 Plt Count 147 L MPV 8.9 L Immature Gran % (Auto) 0.4 Neut % (Auto) 84.4 H Lymph % (Auto) 6.9 L Crisp % (Auto) 7.7 Eos % (Auto) 0.1 Baso % (Auto) 0.5 Lymph # (Auto) 0.8 L Crisp # (Auto) 0.9 Eos # (Auto) 0.0 Baso # (Auto) 0.1 Abs Immat Gran (auto) 0.05 H Absolute Neuts (auto) 10.0 H Absolute Nucleated RBC 0.000 Nucleated RBC % (auto) 0.0 ESR 41 H Anion Gap 27 H Estim Creat Clear Calc 98.3 Estimated GFR > 60 Random Glucose 77 Lactic Acid Lactic Acid F/U @ 2Hr Calcium 8.7 Magnesium 2.1 Total Bilirubin 0.5 AST 30 ALT 21 Alkaline Phosphatase 102 Total Creatine Kinase 72 C-Reactive Protein 15.41 H Total Protein 7.7 Albumin 4.2 COVID-19 ([facility]) COVID-19 Clin Com 03/28/23 03/28/23 03/28/23 17:13 18:43 19:27 MCV MCH MCHC RDW Plt Count MPV Immature Gran % (Auto) Neut % (Auto) Lymph % (Auto) Crisp % (Auto) Eos % (Auto) Baso % (Auto) Lymph # (Auto) Crisp # (Auto) Eos # (Auto) Baso # (Auto) Abs Immat Gran (auto) Absolute Neuts (auto) Absolute Nucleated RBC Nucleated RBC % (auto) ESR Anion Gap Estim Creat Clear Calc Estimated GFR Random Glucose Lactic Acid 3.0 H* Lactic Acid F/U @ 2Hr 2.8 H* Calcium Magnesium Total Bilirubin AST ALT Alkaline Phosphatase Total Creatine Kinase C-Reactive Protein Total Protein Albumin COVID-19 ([facility]UYEN) Negative COVID-19 Clin Com See Note Imaging Radiologist's Impressions: Impressions Chest X-Ray 03/28/23 17:32 IMPRESSION: Mild central bronchial thickening which could indicate reactive airways disease or atypical/viral infections. Abdomen/Pelvis CT 03/28/23 18:38 IMPRESSION: 1. Acute uncomplicated diverticulitis sigmoid colon. 2. Distended gallbladder. No gallstones appreciated on CT. Consider ultrasound for further assessment. 3. Hepatic steatosis. 4. Small fat-containing umbilical hernia. 5. No specific findings to explain patient's right lower quadrant pain. Fleischner guidelines were followed. Assessment and Plan (1) Diverticulitis: Status: Acute (2) Alcohol withdrawal: Status: Inactive Plan Pt is a 67-year-old male with a PMH significant for?HTN, alcohol use disorder, hx of DVT in right leg on Eliquis, and COPD who presents to the ED with?multiple complaints of painful bilateral should wounds and lower abdominal pain. Pt will be admitted to the hospital for treatment and further evaluation of diverticulitis and alcohol withdrawal. Diverticulitis CT of abdomen pelvis showed acute uncomplicated diverticulitis of the sigmoid colon IV ABX: Metronidazole, ceftriaxone, started 03/18/2023 IVF: Lactated Ringer's Analgesics for pain management Bowel rest: pt will be made NPO for now, advance diet tomorrow as tolerated Follow BMP Alcohol withdrawal Patient states that he drinks 4-5 nips every day starting at 04:00 o'clock in the afternoon Patient with mild upper extremity tremors, agitation, tremulous voice Pt will be started on phenobarb protocol Daily multivitamin, folic acid, Thiamine Famotidine 20 mg p.o. bid Follow lytes, Mag, BMP IVF: lactated ringers CIWA scale Addiction medicine consult Monitor on telemetry Bilateral shoulder abrasions Superficial bilateral shoulder abrasions, left larger than right No cellulitis appreciated Patient does not know how they appeared: Denies trauma, falls, bites, cuts to area Bacitracin ointment Wound care consult COPD Pt not hypoxic, not in acute exacerbation Continue home inhalers DuoNebs p.r.n. Hx of DVT Continue Eliquis HTN Continue home meds Full Code Attending:?Dr. Robledo DVT Prophylaxis: On Eliquis Pt will require a hospitalization of at least two nights for treatment with IV antibiotics of acute diverticulitis and alcohol withdrawal. Time Spent With Patient Time: Total time managing care of this patient today ____ minutes. Quality Stroke Does the patient have a stroke diagnosis?: No VTE Prior VTE?: No VTE Risk Level:: Medical - moderate - high VTE Device Contraindication: Treatment Not Indicated VTE Drug Contraindication: N/A - Med Ordered
[2023-03-28 21:23] LABS: Appearance Urine Clear; Color Urine Yellow; Glucose Urine UA Negative (Negative); Leukocyte Esterase Urine Negative (Negative); Nitrite Urine Negative (Negative); Specific Gravity - Urine >= 1.030 (1.005-1.025); UMIC TRIGGER UACC YES; Urine Blood Small (1+) (Negative); Urine Ketones 80 mg/dL (Negative); Urine Protein 100 (2+) mg/dL (Neg-Trace)
[2023-03-28 21:29] LABS: Reflex Lactate? 2 Y
[2023-03-28 21:37] LABS: Bacteria Urine None Seen (None Seen); RBC Urine 0-2 /HPF (0-2); Squamous Epithelial Cell Urine 0-2 /HPF (0-2); WBC Urine 0-5 /HPF (0-5)
--- NOTE | 2023-03-28 21:56 | PC.NURSE ---
pt admits to drinking 5 nips daily, smokes tobacco and marijuana
[2023-03-28 22:00] VITALS: BP 122/63; PULSE 75; RESP 16; TEMP 37.1; O2SAT 93
[2023-03-28] MEDS: Lactated Ringers 1,000 ML 100 ML IVCONT (22:02)
[2023-03-28] MEDS: Famotidine 20 MG TABLET PO (22:14)
[2023-03-28] MEDS: PHENobarbitaL sodium 130 MG/ML IM ONCE 211 MG IM (22:28)
[2023-03-28] MEDS: cefTRIAXone sodium 1 GM in 0.9 % Sodium Chloride 50 ML IV (22:57)
[2023-03-28] MEDS: metroNIDAZOLE/NS 500 MG/100 ML PIGGYBACK 100 MG IV (23:30)
[2023-03-29] VITALS (7 sets, daily range): BP systolic 126–152; BP diastolic 60–74; PULSE 74–84; RESP 16–23; TEMP 36.2–37.6; O2SAT 93–98; BMI 24.4
[2023-03-29 00:43] LABS: Cancel Lactic Acid Canceled
[2023-03-29] MEDS: PHENobarbitaL sodium 130 MG/ML VIAL IM Q3Hx2 158 MG IM ×2 (01:46→04:49)
--- NOTE | 2023-03-29 05:33 | PC.NURSE ---
med rec completed w/ pt
[2023-03-29 05:58] LABS: Hematocrit 36.9 % (42.0-52.0); Hemoglobin 12.7 g/dl (14.0-18.0); Mean Corpuscular HGB Conc 34.4 g/dl (31.0-36.0); Mean Corpuscular Hemoglobin 33.9 pg (27.0-33.0); Mean Corpuscular Volume 98.4 fL (80.0-98.0); Mean Platelet Volume 9.3 fL (9.4-12.4); Platelet Count 113 X10*3/uL (160-400); Red Blood Count 3.75 X10*6/uL (4.60-5.80); Red Cell Distribution Width 15.5 % (11.0-16.0); White Blood Count 9.5 X10*3/uL (4.8-10.8)
[2023-03-29 06:13] LABS: Anion Gap 23 (12-20); Blood Urea Nitrogen 4 mg/dL (9-16); Calcium 8.3 mg/dL (8.4-10.2); Carbon Dioxide 13 mmol/L (22-29); Chloride 102 mmol/L (96-108); Creatinine Clr Calc Pharmacy 99.7; Estimated Glomerular Filt Rate > 60; Glucose Random 72 mg/dL (60-115); Magnesium 1.7 mg/dL (1.6-2.6); Potassium 3.9 mmol/L (3.3-5.1); Sodium 134 mmol/L (135-145)
--- NOTE | 2023-03-29 07:05 | PC.NURSE ---
N2N report given to ANGEL Thompson
[2023-03-29] MEDS: metroNIDAZOLE/NS 500 MG/100 ML PIGGYBACK 100 MG IV ×2 (07:13→15:21)
--- NOTE | 2023-03-29 07:22 | PC.NURSE ---
aox3 speaking in full clear sentences, pt unaware of plan of care for admission- educated on plan of care and denied having any questions at this time. vss. ciwa 0.
--- NOTE | 2023-03-29 08:19 | PC.NURSE ---
report given to judit on c
[2023-03-29] MEDS: PHENobarbitaL 15 MG TABLET 45 MG PO ×2 (09:35→20:12)
[2023-03-29] MEDS: Famotidine 20 MG TABLET PO ×2 (09:35→20:11)
[2023-03-29] MEDS: Thiamine HCL 100 MG TABLET PO (09:35)
[2023-03-29] MEDS: Folic Acid 1 MG TABLET PO (09:35)
[2023-03-29] MEDS: Multivitamin TABLET 1 TAB PO (09:35)
[2023-03-29] MEDS: Lactated Ringers 1,000 ML 100 ML IVCONT (09:36)
--- NOTE | 2023-03-29 09:53 | MHC.CM.PN ---
IMM 03/29/23, EMR REVIEWED, PT ADMITTED W/DIVERTICULITIS AND ETOH WITHDRAWAL, CM MET W/PT WHO REPORTS HE LIVES IN AN APT, DENIES USE OF DME/HOME SERVICES, PT DECLINES NEED FOR HOME SERVICES AND MAY NEED RECOVERY TEEM FOR ETOH ABUSE. [facility], [facility] X[facility] AND PT REPORTS HIS SISTER TIFFANY IS HIS HCP, COPY REQUESTED. DCP: HOME NO SERVICES W/PT ARRANGING TRANSPORT
--- NOTE | 2023-03-29 10:56 | PHA.MEDREC ---
Pharmacy Consult ? Medication Reconciliation Pharmacy has completed the medication reconciliation. COMPLETED BY NURSE AND REVIEWED BY PHARMACY. [facility] TRIED CALLING BUT CLOSED FOR HOLIDAY. WENT DOWN AND SPOKE TO PATIENT AND CONFIRMED DOSE LESLIE
[2023-03-29 12:20] LABS: Amphetamine Screen Urine Not Detected (Not Detect); Barbiturates, Urine POSITIVE (Not Detect); Benzodiazepines Screen Urine Not Detected (Not Detect); Cannabinoid Screen Urine Not Detected (Not Detect); Cocaine Screen Urine Not Detected (Not Detect); Fentanyl, urine Not Detected (Not Detect); Opiate Screen Urine Not Detected (Not Detect); Phencyclidine Screen Urine Not Detected (Not Detect)
--- NOTE | 2023-03-29 13:40 | P.PNIM_ITS ---
Subjective Subjective Date of Service: 03/29/23 Interval History: Acute diverticulitis, shoulder wounds Review of Systems Abdominal pain seems similar to before but slightly improving. Feels somewhat nauseated. Denies any shoulder pain. Denies any fever chills Physical Exam Vital Signs: Vital Signs: Last Vital Signs Temp 99.6 F 03/29/23 11:01 Pulse 77 03/29/23 11:01 Resp 16 03/29/23 11:01 BP 142/67 H 03/29/23 11:01 Pulse Ox 98 03/29/23 11:01 O2 Del Method Room Air 03/29/23 11:01 BMI result Body Mass Index 24.4 Appearance: Alert.? Oriented X3.? not in distress.? cvs: rrr, [id number] . res: clear to auscultation ,no rhonchii or wheezing abd: no rebound or guarding ,left sided lower abd pain, bs present. ext pulses present , no cyanosis. neuro: axo3 , nonfocal. Objective Data Active Medications Acetaminophen (Acetaminophen 325 Mg Tablet) 650 mg PO Q6H PRN PRN Reason: Pain, Mild (Pain Scale 1-3) Albuterol/Ipratropium (Albuterol/Iprat 2.5/0.5mg 3 Ml Ampul.Neb) 3 ml INHALE RQ4H WHILE AWAKE PRN PRN Reason: Wheezing Bacitracin (Bacitracin Oint 14 Gm Tube) 1 appl TOPICAL BID [facility]; Protocol Last Admin: 03/29/23 09:34 Dose: Not Given Documented By: LAUREEN Non-Admin Reason: Med Not Available Docusate Sodium (Docusate Sodium 100 Mg Capsule) 100 mg PO DAILY PRN PRN Reason: Constipation Famotidine (Famotidine 20 Mg Tablet) 20 mg PO BID [facility] Last Admin: 03/29/23 09:35 Dose: 20 mg Documented By: LAUREEN Folic Acid (Folic Acid 1 Mg Tablet) 1 mg PO DAILY [facility] Stop: 04/01/23 08:59 Last Admin: 03/29/23 09:35 Dose: 1 mg Documented By: LAUREEN Ceftriaxone Sodium 1 gm/ (Sodium Chloride) 50 mls @ 100 mls/hr IV Q24H [facility] Last Infusion: 03/28/23 23:31 Dose: 0 mls/hr Documented By: NIMO Metronidazole (Flagyl) 500 mg in 100 mls @ 100 mls/hr IV Q8H [facility] Last Infusion: 03/29/23 08:17 Dose: 0 mls/hr Documented By: NATALY Lactated Ringer's (Lr) 1,000 mls @ 100 mls/hr IVCONT .Q10H [facility] Last Admin: 03/29/23 09:36 Dose: 100 mls/hr Documented By: LAUREEN Morphine Sulfate (Morphine Sulfate 4 Mg/Ml Cartridge) 4 mg IVPUSH Q4H PRN; Protocol PRN Reason: Pain, Severe (Pain Scale 7-10) Multivitamins/Vitamin C (Multivitamin Tablet) 1 tab PO DAILY [facility] Stop: 04/01/23 08:59 Last Admin: 03/29/23 09:35 Dose: 1 tab Documented By: LAUREEN Nicotine (Nicotine 14 Mg Patch.Td24) 14 mg TRANSDERMA DAILY PRN PRN Reason: Nicotine Cravings Ondansetron HCl (Ondansetron Hcl 4 Mg/2 Ml Vial) 4 mg IVPUSH Q8H PRN PRN Reason: Nausea and Vomiting Pharmacy Consult (Consult Rx Perform Med Rec) 1 each MISCELLANE ONCE PRN PRN Reason: Consult order Pharmacy Consult (Consult Rx Etoh Phenob Im/Po) 1 each MISCELLANE ONCE PRN; Protocol PRN Reason: Consult order Phenobarbital (Phenobarbital 15 Mg Tablet) 45 mg PO BID [facility] Stop: 03/30/23 21:01 Last Admin: 03/29/23 09:35 Dose: 45 mg Documented By: LAUREEN Phenobarbital (Phenobarbital 30 Mg Tablet) 30 mg PO BID [facility] Stop: 04/01/23 21:01 Phenobarbital (Phenobarbital 15 Mg Tablet) 15 mg PO DAILY [facility] Stop: 04/03/23 09:01 Sodium Chloride (0.9 % Sodium Chloride Flush 3 Ml Syringe) 3 ml IVFLUSH QSHIFT [facility] Last Admin: 03/29/23 08:17 Dose: Not Given Documented By: NATALY Non-Admin Reason: IV Running Thiamine HCl (Thiamine Hcl 100 Mg Tablet) 100 mg PO DAILY [facility] Stop: 04/01/23 08:59 Last Admin: 03/29/23 09:35 Dose: 100 mg Documented By: LAUREEN Labs 03/29/23 05:50 03/29/23 05:50 Labs: Laboratory Results - last 24 hr 03/28/23 03/28/23 03/28/23 17:12 17:12 17:13 MCV 99.5 H MCH 33.2 H MCHC 33.3 RDW 15.4 Plt Count 147 L MPV 8.9 L Immature Gran % (Auto) 0.4 Neut % (Auto) 84.4 H Lymph % (Auto) 6.9 L [place] % (Auto) 7.7 Eos % (Auto) 0.1 Baso % (Auto) 0.5 Lymph # (Auto) 0.8 L [place] # (Auto) 0.9 Eos # (Auto) 0.0 Baso # (Auto) 0.1 Abs Immat Gran (auto) 0.05 H Absolute Neuts (auto) 10.0 H Absolute Nucleated RBC 0.000 Nucleated RBC % (auto) 0.0 ESR 41 H Anion Gap 27 H Estim Creat Clear Calc 98.3 Estimated GFR > 60 Random Glucose 77 Lactic Acid Lactic Acid F/U @ 2Hr Calcium 8.7 Magnesium 2.1 Total Bilirubin 0.5 AST 30 ALT 21 Alkaline Phosphatase 102 Total Creatine Kinase 72 C-Reactive Protein 15.41 H Total Protein 7.7 Albumin 4.2 Urine Color Urine Appearance Urine pH Ur Specific [place] Urine Protein Urine Glucose (UA) Urine Ketones Urine Blood Urine Nitrite Ur Leukocyte Esterase Urine RBC Urine WBC Ur Squamous Epith Cells Urine Bacteria Hyaline Casts Urine Opiates Screen Urine Fentanyl Screen Ur Barbiturates Screen Ur Phencyclidine Scrn Ur Amphetamines Screen U Benzodiazepines Scrn Urine Cocaine Screen U Marijuana (THC) Screen COVID-19 ([facility]) COVID-19 Clin Com 03/28/23 03/28/23 03/28/23 17:13 18:43 19:27 MCV MCH MCHC RDW Plt Count MPV Immature Gran % (Auto) Neut % (Auto) Lymph % (Auto) [place] % (Auto) Eos % (Auto) Baso % (Auto) Lymph # (Auto) [place] # (Auto) Eos # (Auto) Baso # (Auto) Abs Immat Gran (auto) Absolute Neuts (auto) Absolute Nucleated RBC Nucleated RBC % (auto) ESR Anion Gap Estim Creat Clear Calc Estimated GFR Random Glucose Lactic Acid 3.0 H* Lactic Acid F/U @ 2Hr 2.8 H* Calcium Magnesium Total Bilirubin AST ALT Alkaline Phosphatase Total Creatine Kinase C-Reactive Protein Total Protein Albumin Urine Color Urine Appearance Urine pH Ur Specific [place] Urine Protein Urine Glucose (UA) Urine Ketones Urine Blood Urine Nitrite Ur Leukocyte Esterase Urine RBC Urine WBC Ur Squamous Epith Cells Urine Bacteria Hyaline Casts Urine Opiates Screen Urine Fentanyl Screen Ur Barbiturates Screen Ur Phencyclidine Scrn Ur Amphetamines Screen U Benzodiazepines Scrn Urine Cocaine Screen U Marijuana (THC) Screen COVID-19 ([facility]) Negative COVID-19 Clin Com See Note 03/28/23 03/29/23 03/29/23 21:12 05:50 05:50 MCV 98.4 H MCH 33.9 H MCHC 34.4 RDW 15.5 Plt Count 113 L MPV 9.3 L Immature Gran % (Auto) Neut % (Auto) Lymph % (Auto) [place] % (Auto) Eos % (Auto) Baso % (Auto) Lymph # (Auto) [place] # (Auto) Eos # (Auto) Baso # (Auto) Abs Immat Gran (auto) Absolute Neuts (auto) Absolute Nucleated RBC 0.000 Nucleated RBC % (auto) 0.0 ESR Anion Gap 23 H Estim Creat Clear Calc 99.7 Estimated GFR > 60 Random Glucose 72 Lactic Acid Lactic Acid F/U @ 2Hr Calcium 8.3 L Magnesium 1.7 Total Bilirubin AST ALT Alkaline Phosphatase Total Creatine Kinase C-Reactive Protein Total Protein Albumin Urine Color Yellow Urine Appearance Clear Urine pH 5.0 Ur Specific [place] >= 1.030 H Urine Protein 100 (2+) H Urine Glucose (UA) Negative Urine Ketones 80 Urine Blood Small (1+) H Urine Nitrite Negative Ur Leukocyte Esterase Negative Urine RBC 0-2 Urine WBC 0-5 Ur Squamous Epith Cells 0-2 Urine Bacteria None Seen Hyaline Casts 3-5 Urine Opiates Screen Urine Fentanyl Screen Ur Barbiturates Screen Ur Phencyclidine Scrn Ur Amphetamines Screen U Benzodiazepines Scrn Urine Cocaine Screen U Marijuana (THC) Screen COVID-19 ([facility]) COVID-19 Clin Com 03/29/23 11:30 MCV MCH MCHC RDW Plt Count MPV Immature Gran % (Auto) Neut % (Auto) Lymph % (Auto) [place] % (Auto) Eos % (Auto) Baso % (Auto) Lymph # (Auto) [place] # (Auto) Eos # (Auto) Baso # (Auto) Abs Immat Gran (auto) Absolute Neuts (auto) Absolute Nucleated RBC Nucleated RBC % (auto) ESR Anion Gap Estim Creat Clear Calc Estimated GFR Random Glucose Lactic Acid Lactic Acid F/U @ 2Hr Calcium Magnesium Total Bilirubin AST ALT Alkaline Phosphatase Total Creatine Kinase C-Reactive Protein Total Protein Albumin Urine Color Urine Appearance Urine pH Ur Specific [place] Urine Protein Urine Glucose (UA) Urine Ketones Urine Blood Urine Nitrite Ur Leukocyte Esterase Urine RBC Urine WBC Ur Squamous Epith Cells Urine Bacteria Hyaline Casts Urine Opiates Screen Not Detected Urine Fentanyl Screen Not Detected Ur Barbiturates Screen POSITIVE H Ur Phencyclidine Scrn Not Detected Ur Amphetamines Screen Not Detected U Benzodiazepines Scrn Not Detected Urine Cocaine Screen Not Detected U Marijuana (THC) Screen Not Detected COVID-19 ([facility]) COVID-19 Clin Com Assessment and Plan (1) Diverticulitis: Status: Acute Plan 67-year-old male with a PMH significant for?HTN, alcohol use disorder, hx of DVT in right leg on Eliquis, and COPD who presents to the ED with?multiple complaints of painful bilateral should wounds and lower abdominal pain. Pt will be admitted to the hospital for treatment and further evaluation of diverticulitis and alcohol withdrawal. acute Diverticulitis CT of abdomen pelvis showed acute uncomplicated diverticulitis of the sigmoid colon IV ABX:? Metronidazole, ceftriaxone, started 03/18/2023,LR ivf ,bowel rest ,pain meds Alcohol withdrawal Patient states that he drinks 4-5 nips every day starting at 04:00 o'clock in the afternoon has tremors, agitation, tremulous voice Pt will be started on phenobarb protocol,Daily multivitamin, folic acid, Thiamine,Famotidine 20 mg p.o. bid Follow lytes, Mag, BMP,CIWA scale Addiction medicine consult Monitor on telemetry Bilateral shoulder abrasions Superficial bilateral shoulder abrasions, left larger than right No cellulitis appreciated Patient does not know how they appeared:? Denies trauma, falls, bites, cuts to area Bacitracin ointment Wound care consult COPD Pt not hypoxic, not in acute exacerbation Continue home inhalers DuoNebs p.r.n. Hx of DVT Continue Eliquis HTN Continue home meds Full Code Attending:?Dr. Robledo DVT Prophylaxis: On Eliquis inpatient need: acute diverticulitis: IV antibiotics of acute diverticulitis- need iv antibiotics, bowel rest, pain management, and alcohol withdrawal-renal function and electrolyte monitoring. Time Spent With Patient Time: Total time managing care of this patient today ____ minutes. Quality Stroke Does the patient have a stroke diagnosis?: No VTE Prior VTE?: No VTE Risk Level:: Medical - moderate - high VTE Device Contraindication: Treatment Not Indicated VTE Drug Contraindication: N/A - Med Ordered
--- NOTE | 2023-03-29 15:19 | P.CONWO_ITS ---
History of Present Illness Data of Consult Service Date: 03/29/23 Requesting physician: Willem Moreno Primary Care Provider: Eliecer Cabrera MD [facility] Reason for consult: bilateral shoulder abrasions [id number]: 67-year-old evaluated in the emergency department for alcohol withdrawal, history of asthma hypertension and DVT. Shoulder wounds are relatively dry without drainage and not causing significant pain. The patient complains of right lower quadrant pain. He denies history of seizures. It is unclear there is any witnessed seizures part this episodes. Review of Systems Review of Systems: No pain in the arms or fever. [facility], [facility] Medical History (Updated 03/29/23 @ 15:23 by ANDRE Solano) Alcohol withdrawal Social History Household Members: None Housing: Apartment Do you presently have visiting nurse or other home services: No Alcohol intake: current Alcohol intake frequency: 0-2 drinks per day Alcohol type: hard liquor Patient Tobacco Use Status: Current everyday Tobacco user Tobacco use type: Cigarette Cigarette Packs Per Day: 0.33 Cigarettes Per Day: 6.6 Years Smoked: 25 Substance Use Type: Marijuana service: Yes Meds Allergies Allergy/AdvReac Type Severity Reaction Status Date / Time No Known Allergies Allergy Verified 03/29/23 05:31 Active Medications: Current Medications Acetaminophen (Acetaminophen 325 Mg Tablet) 650 mg PO Q6H PRN PRN Reason: Pain, Mild (Pain Scale 1-3) Albuterol/Ipratropium (Albuterol/Iprat 2.5/0.5mg 3 Ml Ampul.Neb) 3 ml INHALE RQ 4H WHILE AWAKE PRN PRN Reason: Wheezing Bacitracin (Bacitracin Oint 14 Gm Tube) 1 appl TOPICAL BID [facility]; Protocol Last Admin: 03/29/23 09:34 Dose: Not Given Docusate Sodium (Docusate Sodium 100 Mg Capsule) 100 mg PO DAILY PRN PRN Reason: Constipation Famotidine (Famotidine 20 Mg Tablet) 20 mg PO BID [facility] Last Admin: 03/29/23 09:35 Dose: 20 mg Folic Acid (Folic Acid 1 Mg Tablet) 1 mg PO DAILY [facility] Stop: 04/01/23 08:59 Last Admin: 03/29/23 09:35 Dose: 1 mg Ceftriaxone Sodium 1 gm/ (Sodium Chloride) 50 mls @ 100 mls/hr IV Q24H [facility] Last Infusion: 03/28/23 23:31 Dose: Infused Metronidazole (Flagyl) 500 mg in 100 mls @ 100 mls/hr IV Q8H [facility] Last Infusion: 03/29/23 08:17 Dose: Infused Lactated Ringer's (Lr) 1,000 mls @ 100 mls/hr IVCONT .Q10H [facility] Last Admin: 03/29/23 09:36 Dose: 100 mls/hr Morphine Sulfate (Morphine Sulfate 4 Mg/Ml Cartridge) 4 mg IVPUSH Q4H PRN; Protocol PRN Reason: Pain, Severe (Pain Scale 7-10) Multivitamins/Vitamin C (Multivitamin Tablet) 1 tab PO DAILY [facility] Stop: 04/01/23 08:59 Last Admin: 03/29/23 09:35 Dose: 1 tab Nicotine (Nicotine 14 Mg Patch.Td24) 14 mg TRANSDERMA DAILY PRN PRN Reason: Nicotine Cravings Ondansetron HCl (Ondansetron Hcl 4 Mg/2 Ml Vial) 4 mg IVPUSH Q8H PRN PRN Reason: Nausea and Vomiting Pharmacy Consult (Consult Rx Perform Med Rec) 1 each MISCELLANE ONCE PRN PRN Reason: Consult order Pharmacy Consult (Consult Rx Etoh Phenob Im/Po) 1 each MISCELLANE ONCE PRN; Protocol PRN Reason: Consult order Phenobarbital (Phenobarbital 15 Mg Tablet) 45 mg PO BID [facility] Stop: 03/30/23 21:01 Last Admin: 03/29/23 09:35 Dose: 45 mg Phenobarbital (Phenobarbital 30 Mg Tablet) 30 mg PO BID [facility] Stop: 04/01/23 21:01 Phenobarbital (Phenobarbital 15 Mg Tablet) 15 mg PO DAILY [facility] Stop: 04/03/23 09:01 Sodium Chloride (0.9 % Sodium Chloride Flush 3 Ml Syringe) 3 ml IVFLUSH QSHIFT [facility] Last Admin: 03/29/23 15:03 Dose: Not Given Thiamine HCl (Thiamine Hcl 100 Mg Tablet) 100 mg PO DAILY [facility] Stop: 04/01/23 08:59 Last Admin: 03/29/23 09:35 Dose: 100 mg Home Medications Medication Instructions Recorded Confirmed Last Taken Type albuterol sulfate 90 mcg/actuation 2 inh inhalation QID PRN Shortness 12/07/21 03/29/23 Unknown History aerosol inhaler Of Breath amlodipine 5 mg tablet 5 mg PO DAILY 12/07/21 03/29/23 Unknown History apixaban 2.5 mg tablet 2.5 mg PO BID 12/07/21 03/29/23 Unknown History lisinopril 5 mg tablet 5 mg PO DAILY 12/07/21 03/29/23 Unknown History mirtazapine 30 mg tablet 30 mg PO BEDTIME 12/07/21 03/29/23 Unknown History Physical Exam Vital Signs and Narrative: Vital Signs: Last Vital Signs Temp 99.6 F 03/29/23 11:01 Pulse 77 03/29/23 11:01 Resp 16 03/29/23 11:01 BP 142/67 H 03/29/23 11:01 Pulse Ox 98 03/29/23 11:01 O2 Del Method Room Air 03/29/23 11:01 BMI result Body Mass Index 24.4 Large left lateral deltoid ulcer. Small right lateral deltoid abrasion. No surrounding erythema or edema. No maceration or drainage. Results Labs 03/29/23 05:50 03/29/23 05:50 Labs: Laboratory Results - last 24 hr 03/28/23 03/28/23 03/28/23 17:12 17:12 17:13 MCV 99.5 H MCH 33.2 H MCHC 33.3 RDW 15.4 Plt Count 147 L MPV 8.9 L Immature Gran % (Auto) 0.4 Neut % (Auto) 84.4 H Lymph % (Auto) 6.9 L [place] % (Auto) 7.7 Eos % (Auto) 0.1 Baso % (Auto) 0.5 Lymph # (Auto) 0.8 L [place] # (Auto) 0.9 Eos # (Auto) 0.0 Baso # (Auto) 0.1 Abs Immat Gran (auto) 0.05 H Absolute Neuts (auto) 10.0 H Absolute Nucleated RBC 0.000 Nucleated RBC % (auto) 0.0 ESR 41 H Anion Gap 27 H Estim Creat Clear Calc 98.3 Estimated GFR > 60 Random Glucose 77 Lactic Acid Lactic Acid F/U @ 2Hr Calcium 8.7 Magnesium 2.1 Total Bilirubin 0.5 AST 30 ALT 21 Alkaline Phosphatase 102 Total Creatine Kinase 72 C-Reactive Protein 15.41 H Total Protein 7.7 Albumin 4.2 Urine Color Urine Appearance Urine pH Ur Specific [place] Urine Protein Urine Glucose (UA) Urine Ketones Urine Blood Urine Nitrite Ur Leukocyte Esterase Urine RBC Urine WBC Ur Squamous Epith Cells Urine Bacteria Hyaline Casts Urine Opiates Screen Urine Fentanyl Screen Ur Barbiturates Screen Ur Phencyclidine Scrn Ur Amphetamines Screen U Benzodiazepines Scrn Urine Cocaine Screen U Marijuana (THC) Screen COVID-19 ([facility]) COVID-19 Clin Com 03/28/23 03/28/23 03/28/23 17:13 18:43 19:27 MCV MCH MCHC RDW Plt Count MPV Immature Gran % (Auto) Neut % (Auto) Lymph % (Auto) [place] % (Auto) Eos % (Auto) Baso % (Auto) Lymph # (Auto) [place] # (Auto) Eos # (Auto) Baso # (Auto) Abs Immat Gran (auto) Absolute Neuts (auto) Absolute Nucleated RBC Nucleated RBC % (auto) ESR Anion Gap Estim Creat Clear Calc Estimated GFR Random Glucose Lactic Acid 3.0 H* Lactic Acid F/U @ 2Hr 2.8 H* Calcium Magnesium Total Bilirubin AST ALT Alkaline Phosphatase Total Creatine Kinase C-Reactive Protein Total Protein Albumin Urine Color Urine Appearance Urine pH Ur Specific [place] Urine Protein Urine Glucose (UA) Urine Ketones Urine Blood Urine Nitrite Ur Leukocyte Esterase Urine RBC Urine WBC Ur Squamous Epith Cells Urine Bacteria Hyaline Casts Urine Opiates Screen Urine Fentanyl Screen Ur Barbiturates Screen Ur Phencyclidine Scrn Ur Amphetamines Screen U Benzodiazepines Scrn Urine Cocaine Screen U Marijuana (THC) Screen COVID-19 ([facility]) Negative COVID-19 Clin Com See Note 03/28/23 03/29/23 03/29/23 21:12 05:50 05:50 MCV 98.4 H MCH 33.9 H MCHC 34.4 RDW 15.5 Plt Count 113 L MPV 9.3 L Immature Gran % (Auto) Neut % (Auto) Lymph % (Auto) [place] % (Auto) Eos % (Auto) Baso % (Auto) Lymph # (Auto) [place] # (Auto) Eos # (Auto) Baso # (Auto) Abs Immat Gran (auto) Absolute Neuts (auto) Absolute Nucleated RBC 0.000 Nucleated RBC % (auto) 0.0 ESR Anion Gap 23 H Estim Creat Clear Calc 99.7 Estimated GFR > 60 Random Glucose 72 Lactic Acid Lactic Acid F/U @ 2Hr Calcium 8.3 L Magnesium 1.7 Total Bilirubin AST ALT Alkaline Phosphatase Total Creatine Kinase C-Reactive Protein Total Protein Albumin Urine Color Yellow Urine Appearance Clear Urine pH 5.0 Ur Specific [place] >= 1.030 H Urine Protein 100 (2+) H Urine Glucose (UA) Negative Urine Ketones 80 Urine Blood Small (1+) H Urine Nitrite Negative Ur Leukocyte Esterase Negative Urine RBC 0-2 Urine WBC 0-5 Ur Squamous Epith Cells 0-2 Urine Bacteria None Seen Hyaline Casts 3-5 Urine Opiates Screen Urine Fentanyl Screen Ur Barbiturates Screen Ur Phencyclidine Scrn Ur Amphetamines Screen U Benzodiazepines Scrn Urine Cocaine Screen U Marijuana (THC) Screen COVID-19 ([facility]) COVID-19 [employer] 03/29/23 11:30 MCV MCH MCHC RDW Plt Count MPV Immature Gran % (Auto) Neut % (Auto) Lymph % (Auto) [place] % (Auto) Eos % (Auto) Baso % (Auto) Lymph # (Auto) [place] # (Auto) Eos # (Auto) Baso # (Auto) Abs Immat Gran (auto) Absolute Neuts (auto) Absolute Nucleated RBC Nucleated RBC % (auto) ESR Anion Gap Estim Creat Clear Calc Estimated GFR Random Glucose Lactic Acid Lactic Acid F/U @ 2Hr Calcium Magnesium Total Bilirubin AST ALT Alkaline Phosphatase Total Creatine Kinase C-Reactive Protein Total Protein Albumin Urine Color Urine Appearance Urine pH Ur Specific [place] Urine Protein Urine Glucose (UA) Urine Ketones Urine Blood Urine Nitrite Ur Leukocyte Esterase Urine RBC Urine WBC Ur Squamous Epith Cells Urine Bacteria Hyaline Casts Urine Opiates Screen Not Detected Urine Fentanyl Screen Not Detected Ur Barbiturates Screen POSITIVE H Ur Phencyclidine Scrn Not Detected Ur Amphetamines Screen Not Detected U Benzodiazepines Scrn Not Detected Urine Cocaine Screen Not Detected U Marijuana (THC) Screen Not Detected COVID-19 ([facility]) COVID-19 [employer] Imaging Radiologist's Impressions: Impressions Chest X-Ray 03/28/23 17:32 IMPRESSION: Mild central bronchial thickening which could indicate reactive airways disease or atypical/viral infections. Abdomen/Pelvis CT 03/28/23 18:38 IMPRESSION: 1. Acute uncomplicated diverticulitis sigmoid colon. 2. Distended gallbladder. No gallstones appreciated on CT. Consider ultrasound for further assessment. 3. Hepatic steatosis. 4. Small fat-containing umbilical hernia. 5. No specific findings to explain patient's right lower quadrant pain. Fleischner guidelines were followed. Assessment and Plan (1) Abrasion of arm, left: Status: Acute (2) Abrasion of right upper arm: Status: Acute Plan 67-year-old male with alcohol withdrawal and bilateral shoulder abrasions which could either be from fall associated with intoxication or potentially seizure activity. Recommend topical Xeroform to these areas to apply every other day. Outpatient wound care follow-up as to the discretion of the patient. Typically nutritional support is required to heal wounds in folks with vitamin-B deficiencies. Time Spent With Patient Time: Total time managing care of this patient today ____ minutes.
--- NOTE | 2023-03-29 16:07 | MHC.RECOVRN ---
Met with pt in 475 after consult placed to Addiction Medicine for alcohol use. Pt sitting in chair, awake, alert, easily engages in conversation but guarded. Pt reports drinking 5 nips daily x years beginning at 4PM. Pt emphasizes that he does not drink before 4PM. Pt denies hx tx for alcohol use, however, reports going to a couple AA meetings. Pt did not find them helpful. Pt reports family hx AUD-father and grandfather. Pt reports longest period without alcohol was 3-4 months in the 80s when I was in the . Denies hx withdrawal symptoms, denies hx seizures. Educated regarding risks with abruptly stopping alcohol use. Pt is contemplating reducing amount of alcohol consumed, educated regarding resources and services available, including [facility]. Pt not currently interested in referrals or [facility] initiation. Pt provided with written resources as well as t/w contact information if needed. Discussed with Leola Barkley APRN.
--- NOTE | 2023-03-29 17:26 | PM.EVENT ---
Event Note Date of Service: 03/29/23 Event Note: Addiction consult placed for patient Seen by case management specialist, please see note dated 03/29/2023. Time Spent With Patient Time: Total time managing care of this patient today ____ minutes.
[2023-03-29] MEDS: Sodium Bicarbonate 650 MG TABLET PO (20:11)
[2023-03-29] MEDS: cefTRIAXone sodium 1 GM in 0.9 % Sodium Chloride 50 ML IV (22:36)
[2023-03-29] MEDS: 0.9 % Sodium Chloride Flush 3 ML SYRINGE IVFLUSH (22:37)
[2023-03-30] MEDS: metroNIDAZOLE/NS 500 MG/100 ML PIGGYBACK 100 MG IV ×2 (00:01→06:01)
[2023-03-30] MEDS: Lactated Ringers 1,000 ML 100 ML IVCONT (01:55)
[2023-03-30 03:11] VITALS: BP 140/77; PULSE 108; RESP 20; TEMP 36.4; O2SAT 93
[2023-03-30 03:29] VITALS: BMI 23.6
[2023-03-30 07:18] LABS: Hematocrit 38.3 % (42.0-52.0); Hemoglobin 13.4 g/dl (14.0-18.0); Mean Corpuscular Hemoglobin 33.8 pg (27.0-33.0); Mean Corpuscular Volume 96.5 fL (80.0-98.0); Mean Platelet Volume 10.2 fL (9.4-12.4); Platelet Count 120 X10*3/uL (160-400); Red Blood Count 3.97 X10*6/uL (4.60-5.80); White Blood Count 6.5 X10*3/uL (4.8-10.8)
[2023-03-30 07:30] VITALS: BP 161/69; PULSE 71; RESP 20; TEMP 36.7; O2SAT 97
[2023-03-30 07:40] LABS: Anion Gap 12 (12-20); Blood Urea Nitrogen < 3 mg/dL (9-16); Calcium 8.8 mg/dL (8.4-10.2); Carbon Dioxide 24 mmol/L (22-29); Chloride 103 mmol/L (96-108); Creatinine Clr Calc Pharmacy 122.9; Estimated Glomerular Filt Rate > 60; Glucose Random 102 mg/dL (60-115); Potassium 3.3 mmol/L (3.3-5.1); Sodium 136 mmol/L (135-145)
--- NOTE | 2023-03-30 08:54 | PC.NURSE ---
Pt. stating that he wants to leave and doesn't understand why he is still here. He states he has been been to many hospitals and has never had to stay this long. Pt. was educated as to why he is still admitted and the need for continued antibiotics but is insisting on leaving. Pt. pulled out his IV and took off tele monitor, states he is leaving at 09:30. MD is aware of the situation.
--- NOTE | 2023-03-30 09:08 | PC.NURSE ---
Pt. nathaniel DESAI MD is aware, paperwork filled out and signed by pt.
--- NOTE | 2023-03-30 11:24 | PM.DS ---
DS: Providers Provider Date of Service: 03/30/23 Date of admission: 03/28/23 21:14 Primary care physician: Eliecer Cabrera MD Consults: 03/28/23 21:43 Addiction Medicine Routine Consulting Provider: Addiction Covering Reason for consultation: Alcohol use disorder 03/28/23 21:44 Consult to Wound Care Routine Consulting Provider[place] [facility] Reason for consultation: Bilateral shoulder abrasions DS: Diagnosis Discharge Diagnosis (1) Abrasion of arm, left: Status: Acute (2) Abrasion of right upper arm: Status: Acute DS: Summary Hospital Course Hospital Course: Patient was been treated for acute diverticulitis, cellulitis and this morning decideed he was feeling fine dressed and ready to leave, he was advised to wait untill full assessment can to determine his eligibility for discharge, unfortunately he had his mind made and would not follow any advise, he was sound awake, alert and orient to self place and time and understands that he was having so abdominal issues but no longer having, I informed him that even if he chooses to leave he will need complete course of antibioics for diverticulitis and cellulitis and further understand that he takes full responsibility for his health, including the possibility of , he's advised to further follow up with his primary care provider within a week. Abx sent to [facility] in [facility] Time Spent with Patient Time attestation: Total time managing care of this patient today ____ minutes. Discharge coordination time: Greater than 30 minutes Quality: Safe Use of Opioids Does Pt have an Active Cancer Diagnosis on the Problem List?: No Quality: Stroke Does the patient have a stroke diagnosis?: No Physical Exam Vital Signs: Vital Signs: Last Vital Signs Temp 98.0 F 03/30/23 07:30 Pulse 71 03/30/23 07:30 Resp 20 03/30/23 07:30 BP 161/69 H 03/30/23 07:30 Pulse Ox 97 03/30/23 07:30 O2 Del Method Room Air 03/30/23 07:30 BMI result Body Mass Index 23.6 DS: Data Data Completed and Pending Labs on day of discharge: Laboratory Results - last 24 hr 03/29/23 03/30/23 03/30/23 11:30 06:34 06:34 WBC 6.5 RBC 3.97 L Hgb 13.4 L Hct 38.3 L MCV 96.5 MCH 33.8 H MCHC 35.0 RDW 15.0 Plt Count 120 L MPV 10.2 Absolute Nucleated RBC 0.000 Nucleated RBC % (auto) 0.0 Sodium 136 Potassium 3.3 Chloride 103 Carbon Dioxide 24 Anion Gap 12 BUN < 3 L Creatinine 0.56 Estim Creat Clear Calc 122.9 Estimated GFR > 60 Random Glucose 102 Calcium 8.8 D Urine Opiates Screen Not Detected Urine Fentanyl Screen Not Detected Ur Barbiturates Screen POSITIVE H Ur Phencyclidine Scrn Not Detected Ur Amphetamines Screen Not Detected U Benzodiazepines Scrn Not Detected Urine Cocaine Screen Not Detected U Marijuana (THC) Screen Not Detected Preliminary micro results at discharge 03/28/23 17:14 Blood Culture - Preliminary Blood - Venous No growth after 24 hours. 03/28/23 17:13 Blood Culture - Preliminary Blood - Venous No growth after 24 hours. Discharge Plan Discharge Anticipated Discharge Date/Time: 03/30/23 11:18 Patient Disposition: Left Against Medical Advice Discharge Diagnosis: Cellulitis, diverticulitis Referrals: Eliecer Cabrera MD [Primary Care Provider] - 1 Week Discharge Medications: New amoxicillin-pot clavulanate 875-125 mg tablet 1 tab PO Q12H Qty: 10 0RF metronidazole 500 mg tablet 500 mg PO BID 5 Days Qty: 10 0RF Continued amlodipine 5 mg Tablet 5 mg PO DAILY mirtazapine 30 mg Tablet 30 mg PO BEDTIME lisinopril 5 mg Tablet 5 mg PO DAILY albuterol sulfate 90 mcg/actuation Hfa Aerosol Inhaler 2 inh INHALATION QID PRN (Reason: Shortness Of Breath) apixaban 2.5 mg Tablet 2.5 mg PO BID Discharge Orders: Discharge Order (Routine); Ordered 03/30/23 Ordered By: Freddy Cardoza Diet: Advance to usual diet Activity on Discharge: As tolerated Care Plan Goals: left AMA Health Concerns: Left AMA Plan of Treatment: Left AMA advise to go to pharmacy and get antibiotics (Sent to [facility] in [facility] Assessment: as above Discharge Date/Time: 03/30/23 09:19
== END 2023-03-30 09:19 | disposition left against medical advice (07) | DRG 392 ==
LOC: HO.ED 20:45 → HO.EDOVER 21:20 → HO.IMC 03-29 07:06
PROVIDERS: Internal Medicine; Physician Assistant Medical; Admitting Provider Student in an Organized Health Care Education/Training Program; Emergency Provider Emergency Medicine; PCP Internal Medicine; Visit Provider Internal Medicine
DX: K57.32 Diverticulitis of large intestine without perforation or abscess without bleeding (principal); F10.139 Alcohol abuse with withdrawal, unspecified; J44.9 Chronic obstructive pulmonary disease, unspecified; S40.212A Abrasion of left shoulder, initial encounter; S40.211A Abrasion of right shoulder, initial encounter; X58.XXXA Exposure to other specified factors, initial encounter; I10 Essential (primary) hypertension; F17.210 Nicotine dependence, cigarettes, uncomplicated; Z20.822 Contact with and (suspected) exposure to COVID-19; Z86.718 Personal history of other venous thrombosis and embolism; Z71.6 Tobacco abuse counseling; Z79.01 Long term (current) use of anticoagulants; Z79.899 Other long term (current) drug therapy
CPT/HCPCS: 36415; 71046; 74176; 80048; 80053; 80307; 81001; 82550; 83605; 83735; 85025; 85027; 85652; 86140; 87040; 87635; 99285; J0696; J2543; J2560